=== PATIENT | female | born 1960 | race Caucasian/White ===

== ENCOUNTER 2022-07-19 15:37 | Inpatient (IN) | payer OTHER ==
[2022-07-19] MEDS ORDERED: METHYLPREDNISOLONE 125 MG INJ ONE (16:14)
[2022-07-19] MEDS ORDERED: HYDROCODONE/CHLORPHEN 5 ML/OSYR ONE (16:14)
[2022-07-19] MEDS ORDERED: FAMOTIDINE 20 MG/2 ML VIAL IV ONE (16:14)
[2022-07-19] MEDS ORDERED: Magnesium Sulfate 2gm IVPB 2 G/50 ML BAG IV ONE (16:15)
[2022-07-19 16:17] LABS: Absolute Lymphocytes (CBC) 1.1 K/uL (0.7-4.9); Hematocrit 42.3 % (36.0-45.0); Lymphocytes % 9.1 % (15.3-44.8); MCV 97.8 fL (80-100); MPV 8.2 fL (7.6-11.3); RBC Red Blood Cell Count 4.33 M/uL (3.86-4.86)
[2022-07-19 16:21] LABS: Protime INR 1.03
[2022-07-19] MEDS ORDERED: LEVALBUTEROL 1.25 MG/3 ML NEB ONE (16:26)
[2022-07-19 16:32] LABS: Albumin 4.1 g/dL (3.4-5.0); Bilirubin Total 0.5 mg/dL (0.2-1.0); Potassium 3.5 mEq/L (3.5-5.1); Protein, Total 7.5 g/dL (6.4-8.2)
[2022-07-19 16:41] LABS: Specific Gravity < 1.005 (1.005-1.030); Urine Bilirubin NEGATIVE (Negative); Urine Blood Negative (Negative); Urine Clarity Clear (Clear); Urine Color Colorless (Yellow); Urine Glucose NEGATIVE (Negative); Urine Protein NEGATIVE (Negative); Urine Urobilinogen Normal (Normal); Urine pH 6.5 (5.0-7.0)
[2022-07-19] MEDS ORDERED: Levofloxacin 750mg IV 750 MG/150 ML BAG IV ONE (16:41)
[2022-07-19] MEDS ORDERED: NA CHLORIDE 0.9% 1,000 ML ONE (16:41)
--- NOTE | 2022-07-19 16:41 | RAD REPORT ---
EXAM DESCRIPTION: RAD - Chest Single View - 07/19/2022 4:20 pm CLINICAL HISTORY: COUGH COMPARISON: No comparisons FINDINGS: Lines: None. Lungs: No evidence of edema or pneumonia. Pleural: No significant pleural effusions or pneumothorax. Cardiac: The heart size is within normal limits. Mediastinum: Within normal limits. Bones: No acute fractures. Other: None IMPRESSION: No acute cardiopulmonary disease.
--- NOTE | 2022-07-19 17:36 | EDPHYS ---
Physician Documentation [facility] Name: Denise Alejandra Age: 61 yrs Sex: Female : 1960 Arrival Date: 07/19/2022 Time: 15:37 Bed 15 Private MD: ED Physician Eyad Leal HPI: 07/19 16:00 This 61 yrs old Female presents to ER via EMS with complaints of Breathing Difficulty. cp 16:00 The patient has shortness of breath at rest. Onset: The symptoms/episode began/occurred cp 3 week(s) ago, and became worse today. Duration: The symptoms are continuous, and are steadily getting worse. Associated signs and symptoms: Pertinent positives: productive cough, dizziness, nausea, vomiting, Pertinent negatives: chest pain, diaphoresis, fever. Severity of symptoms: in the emergency department the symptoms are unchanged despite EMS interventions. Historical: - Allergies: 15:40 PENICILLINS; iw 15:40 Sulfa (Sulfonamide Antibiotics); iw - PMHx: 15:40 copd; iw - Immunization history:: Client reports receiving the 1st dose of the Covid vaccine. - Social history:: Smoking status: Patient denies any tobacco usage or history of. ROS: 16:05 Constitutional: Negative for body aches, chills, fever, poor PO intake. cp 16:05 Eyes: Negative for injury, pain, redness, and discharge. cp 16:05 ENT: Positive for sore throat, Negative for drainage from ear(s), ear pain, difficulty swallowing, difficulty handling secretions. 16:05 Cardiovascular: Negative for chest pain, edema, palpitations. 16:05 Respiratory: Positive for cough, "sounds productive", shortness of breath, at rest. wheezing. 16:05 Abdomen/GI: Positive for nausea, Negative for vomiting, diarrhea, constipation. 16:05 Neuro: Positive for dizziness, Negative for altered mental status, headache, syncope, weakness. 16:05 All other systems are negative. Exam: 16:10 Constitutional: The patient appears alert, awake, non-diaphoretic, non-toxic, well cp developed, well nourished, in obvious distress, mildly distressed. 16:10 Head/Face: Normocephalic, atraumatic. cp 16:10 Eyes: Periorbital structures: appear normal, Conjunctiva: normal, no exudate, no injection, Sclera: no appreciated abnormality, Lids and lashes: appear normal, bilaterally. 16:10 ENT: External ear(s): are unremarkable, Ear canal(s): are normal, clear, TM's: dullness, bilaterally, Nose: is normal, Mouth: Lips: moist, Oral mucosa: pink and intact, moist, Posterior pharynx: is normal, airway is patent, no erythema, no exudate. 16:10 Neck: ROM/movement: is normal, is supple, without pain, no range of motions limitations, no meningismus. 16:10 Chest/axilla: Inspection: normal. 16:10 Cardiovascular: Rate: tachycardic, Rhythm: regular, Edema: is not appreciated, JVD: is not appreciated. 16:10 Respiratory: mild respiratory distress is noted, Respirations: labored breathing, that is moderate, Breath sounds: decreased breath sounds, that are moderate, throughout, stridor, is not appreciated, wheezing: that is mild, is heard diffusely. 16:10 Abdomen/GI: Inspection: abdomen appears normal, Palpation: abdomen is soft and non-tender, in all quadrants. 16:10 Back: pain, is absent, ROM is normal. 16:10 Skin: no rash present. 16:10 Neuro: Orientation: to person, place \\T\\ time. Mentation: is normal, Cerebellar function: is grossly normal, Motor: moves all fours, strength is normal, Sensation: is normal. 16:52 ECG was reviewed by the Attending Physician. cp Vital Signs: 15:46 BP 142 / 90; Pulse 114; Resp 24; Pulse Ox 95% on 4 lpm NC; Weight 70.31 kg; ap3 17:23 BP 118 / 72; Pulse 85; Pulse Ox 97% on 4 lpm NC; ap3 20:02 BP 117 / 77; Pulse 72; Resp 20; Temp 98(TE); Pulse Ox 99% on 4 lpm NC; kl MDM: 15:51 Patient medically screened. snw 15:52 Patient medically screened. jose 17:35 Data reviewed: vital signs, nurses notes, lab test result(s), EKG, radiologic studies, cp plain films. 17:35 Differential diagnosis: CHF exacerbation, Chronic Obstructive Pulmonary Disease cp pneumonia, Pneumothorax pulmonary edema, Pulmonary Embolism Sepsis Unstable Angina. Antibiotic administration: Levaquin given. Consideration of Admission/Observation Patient was admitted/placed on observation. Management of patient was discussed with the following: Hospitalist: DR Castellon will have Gisela Farmer NP admit patient after discussion. I considered the following discharge prescriptions or medication management in the emergency department Medications were administered in the Emergency Department. See MAR. Test considered but Not performed: CT: chest PE protocol. Care significantly affected by the following chronic conditions: Chronic Obstructive Pulmonary Disease. 05 15:45 Order name: Blood Culture Adult (2) cp 05 15:45 Order name: CBC with Diff; Complete Time: 16:31 cp 05/ 16:31 Interpretation: Normal except: WBC 11.90; RDW 11.9; YADY% 86.9; LYM% 9.1; MN% 2.6; NEUT cp A 10.4. 05 15:45 Order name: CMP; Complete Time: 16:57 cp 05/ 16:57 Interpretation: Normal except: NA 133; GLUC 147; GFR 82; AST 39. cp 07/19 15:45 Order name: Lactate w/ 2H reflex if indic.; Complete Time: 16:31 cp 05 15:45 Order name: Protime (+inr); Complete Time: 16:31 cp 05/05 15:45 Order name: Ptt, Activated; Complete Time: 16:31 cp 05/05 15:45 Order name: Urinalysis w/ reflexes; Complete Time: 16:57 cp 05/05 16:57 Interpretation: Normal except: Urine SG < 1.005. cp 05 15:56 Order name: Influenza Screen (a \\T\\ B); Complete Time: 16:57 cp 0505 15:56 Order name: COVID-19 SARS RT PCR; Complete Time: 18:19 cp 05 16:59 Order name: D-Dimer; Complete Time: 18:19 cp 05 16:59 Order name: LAB Add On cp 05 17:30 Order name: ABG: may do vbg; Complete Time: 18:19 cp 05/05 20:09 Order name: Lactate Sepsis 2 HR Follow-up EDMS 05 15:45 Order name: Chest Single View XRAY; Complete Time: 16:57 cp 05/05 15:45 Order name: EKG; Complete Time: 15:46 cp 05/05 17:40 Order name: Diet Regular; Complete Time: 17:40 cp 0505 15:45 Order name: Accucheck; Complete Time: 15:48 cp 0505 15:45 Order name: Cardiac monitoring; Complete Time: 15:48 cp 0505 15:45 Order name: EKG - Nurse/Tech; Complete Time: 16:41 cp 0505 15:45 Order name: IV Saline Lock - Large Bore; Complete Time: 16:04 cp 0505 15:45 Order name: Labs collected and sent; Complete Time: 16:04 cp 0505 15:45 Order name: O2 Per Protocol; Complete Time: 15:48 cp 0505 15:45 Order name: O2 Sat Monitoring; Complete Time: 15:48 cp 0505 15:45 Order name: Vital Signs; Complete Time: 15:48 cp EC:52 Rate is 86 beats/min. Rhythm is regular. NM interval is normal. QRS interval is normal. cp QT interval is normal. Interpreted by me. Reviewed by me. Administered Medications: 16:03 CANCELLED (Physician Discretion): levofloxacin IVPB 750 mg 150 ml IVPB once over 90 minscp 16:04 CANCELLED (Physician Discretion): Lidocaine Infiltration (1 %) 5 mg Infiltration once; cp add to 5 ml normal saline 16:04 CANCELLED (Physician Discretion): Decadron - Dexamethasone IVP 10 mg IVP once cp 16:17 Drug: Tussionex Pennkinetic ER PO Suspension 5 ml Route: PO; ap3 17:18 Follow up: Response: No adverse reaction ap3 16:17 Drug: MethylPrednisoLONE IVP 125 mg Route: IVP; Site: right antecubital; ap3 17:18 Follow up: Response: No adverse reaction ap3 16:17 Drug: Magnesium Sulfate IVPB 2 grams Route: IVPB; Infused Over: 2 hrs; Site: right ap3 antecubital; 17:23 Follow up: IV Status: Completed infusion ap3 16:17 Drug: Famotidine IVP 20 mg Route: IVP; Site: right antecubital; ap3 17:19 Follow up: Response: No adverse reaction ap3 16:30 Drug: Levalbuterol Inhalation 1.25 mg Route: Inhalation; ap3 16:40 Drug: NS 0.9% IV 1000 ml Route: IV; Rate: 1000 ml/hr; Site: left antecubital; ap3 16:40 Drug: levofloxacin IVPB 750 mg Volume: 150 ml; Route: IVPB; Infused Over: 90 mins; ap3 Site: left antecubital; 19:38 Drug: Hydrocodone-Acetaminophen PO (7.5 mg-325 mg) 1 tabs Route: PO; kl 19:38 Drug: Ketorolac IVP 15 mg Route: IVP; Site: left antecubital; kl Disposition Summary: 07/19/22 17:35 Hospitalization Ordered Hospitalization Status: Inpatient Admission cp Condition: Fair cp Problem: an acute exacerbation cp Symptoms: have improved cp Bed/Room Type: Standard cp Location: Telemetry/MedSurg (observation)(07/19/22 18:19) cp Provider: Tasia Rosa(07/19/22 18:23) sb4 Room Assignment: [facility](07/19/22 19:10) Diagnosis - COPD/ Chronic obstructive pulmonary disease with acute lower respiratory infection cp - Dyspnea cp Forms: - Medication Reconciliation Form cp - SBAR form cp Signatures: Dispatcher [employer] EDBri Beckwith RN RN kl Webb, Martha, RN RN mw Anderson, Corey, MD MD cha Waters, Shelly, COMMODITIES CLERK-C COMMODITIES CLERK-Renay Portillo RN RN iw Page, Corey, PA PA cp Prokisch, Amanda, RN RN ap3 Brown, Sophia, PA-C PA-C sb4 Corrections: (The following items were deleted from the chart) 15:50 15:45 Misc. Order ordered. cp snw 16:03 15:53 levofloxacin IVPB 750 mg 150 ml IVPB once over 90 mins ordered. jose cp 16:04 15:45 Lidocaine Infiltration (1 %) 5 mg Infiltration once; add to 5 ml normal saline cp ordered. cp 16:04 15:53 Decadron - Dexamethasone IVP 10 mg IVP once ordered. jose cp 16:40 15:51 Misc. Order ordered. snw ap3 18:19 17:35 Telemetry/MedSurg (Inpatient) cp cp 18:19 17:35 cp cp 18:23 17:35 Leonidas Oliveros cp sb4 19:10 18:19 cp mw
--- NOTE | 2022-07-19 17:36 | ER ---
Nurse's Notes [facility] Name: Denise Alejandra Age: 61 yrs Sex: Female : 1960 Arrival Date: 07/19/2022 Time: 15:37 Bed 15 Private MD: Diagnosis: COPD/ Chronic obstructive pulmonary disease with acute lower respiratory infection;Dyspnea Presentation: 07/19 15:38 Chief complaint: EMS states: diff breathing X 3 weeks, cough X 1 week, saw her PCP and iw was given antibiotics for UTI and inhaler for SOB , pt has hx of COPD, uses home O2 , no fever , reports dizziness today. Coronavirus screen: Client presents with at least one sign or symptom that may indicate coronavirus-19. Ebola Screen: Patient negative for fever greater than or equal to 101.5 degrees Fahrenheit, and additional compatible Ebola Virus Disease symptoms Patient denies exposure to infectious person. Patient denies travel to an Ebola-affected area in the 21 days before illness onset. No symptoms or risks identified at this time. Initial Sepsis Screen: Does the patient meet any 2 criteria? No. Patient's initial sepsis screen is negative. Does the patient have a suspected source of infection? No. Patient's initial sepsis screen is negative. Risk Assessment: Do you want to hurt yourself or someone else? Patient reports no desire to harm self or others. Onset of symptoms was June 29, 2022. 15:38 Method Of Arrival: EMS: [facility] iw 15:38 Acuity: JONI 3 iw Triage Assessment: 15:47 General: Appears uncomfortable, Behavior is calm, cooperative, appropriate for age. ap3 Pain: Complains of pain in chest Aggravated by cough. Neuro: Level of Consciousness is awake, alert, obeys commands, Oriented to person, place, time, situation, Speech is normal. Respiratory: Onset: The symptoms/episode began/occurred gradually, the patient has moderate shortness of breath. Historical: - Allergies: 15:40 PENICILLINS; iw 15:40 Sulfa (Sulfonamide Antibiotics); iw - PMHx: 15:40 copd; iw - Immunization history:: Client reports receiving the 1st dose of the Covid vaccine. - Social history:: Smoking status: Patient denies any tobacco usage or history of. Screenin:48 [facility] ED Fall Risk Assessment (Adult) History of falling in the last 3 months, ap3 including since admission No falls in past 3 months (0 pts). Abuse screen: Denies threats or abuse. Nutritional screening: No deficits noted. Tuberculosis screening: No symptoms or risk factors identified. Assessment: 15:47 Cardiovascular: Patient's skin is warm and dry. Respiratory: Reports cough that is ap3 persistent Airway is patent Respiratory effort is even, unlabored. 19:59 Reassessment: Patient states symptoms have improved. General: Appears comfortable. kl Pain: Complains of pain in headache chest pain. Cardiovascular: Rhythm is sinus rhythm. Respiratory: Breath sounds are coarse Breath sounds are diminished bilaterally. the patient has moderate shortness of breath Parent/caregiver reports the patient having cough that is non-productive, hacking, persistent. GI: No deficits noted. No signs and/or symptoms were reported involving the gastrointestinal system. : No deficits noted. No signs and/or symptoms were reported regarding the genitourinary system. EENT: No deficits noted. No signs and/or symptoms were reported regarding the EENT system. Derm: No deficits noted. No signs and/or symptoms reported regarding the dermatologic system. Musculoskeletal: Parent/caregiver report the patient having chest head pain while coughing. Vital Signs: 15:46 BP 142 / 90; Pulse 114; Resp 24; Pulse Ox 95% on 4 lpm NC; Weight 70.31 kg; ap3 17:23 BP 118 / 72; Pulse 85; Pulse Ox 97% on 4 lpm NC; ap3 20:02 BP 117 / 77; Pulse 72; Resp 20; Temp 98(TE); Pulse Ox 99% on 4 lpm NC; ED Course: 15:38 Patient arrived in ED. iw 15:40 Triage completed. iw 15:40 Shanika Stewart, RN is Primary Nurse. ap3 15:40 Arm band placed on. iw 15:48 Patient has correct armband on for positive identification. Bed in low position. Call ap3 light in reach. Side rails up X2. property assessment monitor on. Pulse ox on. NIBP on. Door closed. Noise minimized. Warm blanket given. 15:52 Eyad Leal MD is Attending Physician. jose 15:55 First set of blood cultures drawn by nm. mb9 15:57 Eyad Serra PA is PHCP. cp 16:04 Inserted saline lock: 20 gauge in right antecubital area, using aseptic technique. ap3 16:04 Second set of blood cultures drawn by me. ap3 16:22 Chest Single View XRAY In Process Unspecified. EDMS 16:26 COVID-19 SARS RT PCR Sent. ap3 16:26 Influenza Screen (a \T\ B) Sent. ap3 16:31 Urinalysis w/ reflexes Sent. ap3 17:34 Leonidas Oliveros is Hospitalizing Provider. cp 17:34 LAB Add On Sent. ap3 18:23 Tasia Rosa MD is Hospitalizing Provider. sb4 20:01 No provider procedures requiring assistance completed. Patient admitted, IV remains in kl place. Administered Medications: 16:03 CANCELLED (Physician Discretion): levofloxacin IVPB 750 mg 150 ml IVPB once over 90 minscp 16:04 CANCELLED (Physician Discretion): Lidocaine Infiltration (1 %) 5 mg Infiltration once; cp add to 5 ml normal saline 16:04 CANCELLED (Physician Discretion): Decadron - Dexamethasone IVP 10 mg IVP once cp 16:17 Drug: Tussionex Pennkinetic ER PO Suspension 5 ml Route: PO; ap3 17:18 Follow up: Response: No adverse reaction ap3 16:17 Drug: MethylPrednisoLONE IVP 125 mg Route: IVP; Site: right antecubital; ap3 17:18 Follow up: Response: No adverse reaction ap3 16:17 Drug: Magnesium Sulfate IVPB 2 grams Route: IVPB; Infused Over: 2 hrs; Site: right ap3 antecubital; 17:23 Follow up: IV Status: Completed infusion ap3 16:17 Drug: Famotidine IVP 20 mg Route: IVP; Site: right antecubital; ap3 17:19 Follow up: Response: No adverse reaction ap3 16:30 Drug: Levalbuterol Inhalation 1.25 mg Route: Inhalation; ap3 16:40 Drug: NS 0.9% IV 1000 ml Route: IV; Rate: 1000 ml/hr; Site: left antecubital; ap3 16:40 Drug: levofloxacin IVPB 750 mg Volume: 150 ml; Route: IVPB; Infused Over: 90 mins; ap3 Site: left antecubital; 19:38 Drug: Hydrocodone-Acetaminophen PO (7.5 mg-325 mg) 1 tabs Route: PO; kl 19:38 Drug: Ketorolac IVP 15 mg Route: IVP; Site: left antecubital; Medication: 20:01 VIS not applicable for this client. kl Outcome: 17:35 Decision to Hospitalize by Provider. cp 20:01 Admitted to Med/surg accompanied by tech, room 201, with oxygen, with chart, Report kl called to cristina carrero 20:01 Condition: improved 20:01 Discharge instructions given to patient, Instructed on the need for admit, Demonstrated understanding of instructions. 21:04 Patient left the ED. kl Signatures: Dispatcher [employer] EDBri Beckwith, RN RN Eyad Shen MD MD cha Williams, Irene RN Eyad Maria PA PA cp Prokisch, Amanda RN RN Debora Perez PA-C PAAmbika Schmidt, Frida Garza RN RN mb9
[2022-07-19 17:58] LABS: Arterial Blood Carboxyhemoglob 0.9 % (0-1.5); Blood Gas Oxyhemoglobin 94.7 % (94-97); Blood O2 Saturation 96.8 % (92-98.5)
--- NOTE | 2022-07-19 19:10 | P.HP ---
Certification for Inpatient Patient admitted to: Observation With expected LOS: <2 Midnights Patient will require the following post-hospital care: None Practitioner: I am a practitioner with admitting privileges, knowledge of patient current condition, hospital course, and medical plan of care. Services: Services provided to patient in accordance with Admission requirements found in Title 42 Section 412.3 of the Code of Federal Regulations Patient History Date of Service: 07/19/22 Reason for admission: COPD Exacerbation History of Present Illness: Ms. Alejandra is a 61 year old female with past medical history of COPD on home O2 who presented to the emergency department with complaints of shortness of breath. She states that she has had some difficulty breathing, especially on exertion, for about 3 weeks now, has had to increase her O2 to 4L (typically uses 3L). She developed a cough last week. She was prescribed an antibiotic and inhaler by her PCP but has not improved. She was tachycardic and tachypneic. Labs are significant for WBC 11.9, sodium 133, lactate 2.7. VBG within normal limits. Chest xray negative. In the emergency department, she was treated with solumedrol, 2 grams magnesium, nebs, levaquin, and IV fluids. ED provider wishes to admit patient for further management. Home medications list reviewed: Yes - Past Medical/Surgical History Diabetic: No -: COPD on home O2 -: Depression -: Anxiety -: -: Hysterectomy Psychosocial/ Personal History: Patient is . She has a son. - Family History Sister -: Heart disease Father -: Lung disease - Social History Smoking Status: Former smoker Alcohol use: Yes CD- Drugs: No Caffeine use: Yes Place of Residence: Home Review of Systems General: Weakness Respiratory: Cough, Shortness of Breath, Wheezing Neurological: Other (Headache) Physical Examination - Vital Signs Temperature: 98.6 F Blood Pressure: 118/72 Pulse: 85 Respirations: 20 Pulse Ox (%): 97 (4L NC) - Physical Exam General: Alert, In no apparent distress HEENT: Atraumatic, EOMI, Sclerae nonicteric Neck: Supple, 2+ carotid pulse no bruit Respiratory: Expiratory wheezes Cardiovascular: Regular rate/rhythm, Normal S1 S2 Gastrointestinal: Normal bowel sounds, No tenderness Musculoskeletal: No tenderness Integumentary: No rashes Neurological: Normal speech, Normal affect - Studies Laboratory Data (last 24 hrs) 07/19/22 16:00: PT 11.3, INR 1.03, APTT 28.3 07/19/22 16:00: Sodium 133 L, Potassium 3.5, BUN 9, Creatinine 0.81, Glucose 147 H, Total Bilirubin 0.5, AST 39 H, ALT 49, Alkaline Phosphatase 93 07/19/22 16:00: WBC 11.90 H, Hgb 14.3, Hct 42.3, Plt Count 223 Microbiology Data (last 24 hrs): 07/19/22 16:24 Nasopharnyx Influenza Type A Antigen Screen - Final 07/19/22 16:24 Nasopharnyx Influenza Type B Antigen Screen - Final Assessment and Plan - Problems (Diagnosis) (1) COPD with acute exacerbation Current Visit: Yes Status: Acute (2) Acute and chronic respiratory failure with hypoxia Current Visit: Yes Status: Acute - Plan Patient is admitted for further management of acute on chronic hypoxic respiratory failure secondary to COPD exacerbation. Continue IV steroids, PRN nebs, incentive spirometry. Pulmonology consulted. Blood cultures obtained. She received levaquin in the ED. Titrate and wean O2 as tolerated. Currently on 4L, states her baseline is 3L. Monitor and replete electrolytes per protocol. Reconcile and continue home medications. Lovenox for VTE prophylaxis. Full code. Discharge Plan: Home Plan to discharge in: 24 Hours - Advance Directives Does patient have a Living Will: No Does patient have a Durable POA for Healthcare: No - Code Status/Comfort Care Code Status Assessed: Yes Code Status: Full Code Physician Review: Patient Assessed, Agree with Above Assessment and Plan Critical Care: No Time Spent Managing Pts Care (In Minutes): 50
[2022-07-19] MEDS ORDERED: KETOROLAC 30 MG/ML INJ ONE (19:41)
[2022-07-19] MEDS ORDERED: HYDROCODONE/APAP 7.5/325 MG TAB ONE (19:41)
[2022-07-19 21:06] VITALS: BMI 23.9
[2022-07-19] MEDS ORDERED: ONDANSETRON 4 MG/2 ML VIAL IV PRN (21:17)
[2022-07-19] MEDS ORDERED: IPRATROPIUM BROM 0.5MG/2.5ML NEB PRN (21:17)
[2022-07-19] MEDS ORDERED: ACETAMINOPHEN 500 MG TAB PO PRN (21:17)
[2022-07-19] MEDS ORDERED: ALBUTEROL 2.5 MG/3 ML NEB SOL NEB PRN (21:17)
[2022-07-20] MEDS: clonazePAM 1 MG TAB PO PRN ×2 (00:59→20:41)
[2022-07-20] MEDS: METHYLPREDNISOLONE 40 MG INJ IV SCH ×3 (00:59→16:38)
[2022-07-20 06:36] LABS: Hematocrit 41.2 % (36.0-45.0); Lymphocytes % 10.8 % (15.3-44.8); MCV 99.2 fL (80-100); MPV 8.3 fL (7.6-11.3); RBC Red Blood Cell Count 4.16 M/uL (3.86-4.86)
--- NOTE | 2022-07-20 07:10 | EKG ---
Test Date: 2022-07-19 Test Time: 16:45:12 Patient Appointment Coordinator: WODOROW MEASUREMENT RESULTS: Intervals: Rate: 83 AL: 134 QRSD: 74 QT: 410 QTc: 481 Badger: P: 74 AL: 134 QRS: 77 T: 63 INTERPRETIVE STATEMENTS: Sinus rhythm with fusion complexes ST elevation, consider inferolateral injury or acute infarct ACUTE VT Abnormal ECG No previous ECG available for comparison Electronically Signed On 07-20-22 07:09:25 CDT by Cliff Singh
[2022-07-20 07:20] LABS: Magnesium 2.8 mg/dL (1.6-2.4); Phosphorus 3.2 mg/dL (2.5-4.9); Potassium 4.4 mEq/L (3.5-5.1); Thyroid Stimulating Hormone 0.225 uIU/mL (0.358-3.740)
[2022-07-20 08:15] LABS: Blood Morphology Comment NOT SEEN (NOT SEEN); Platelet Estimate ADEQ; Platelets, Giant FEW PRESENT
[2022-07-20] MEDS: ENOXAPARIN 40 MG/0.4 ML SQ SCH (08:21)
[2022-07-20] MEDS: FLUOXETINE 20 MG CAP PO SCH (08:21)
--- NOTE | 2022-07-20 09:24 | P.CNS ---
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 She has a son. - Family History Sister Medical History: Heart disease Father Medical History: Lung disease - Social History Alcohol use: Yes CD- Drugs: No Caffeine use: Yes Place of Residence: Home Review of Systems 10-point ROS is otherwise unremarkable General: Weakness Respiratory: Cough, Shortness of Breath Physical Examination Temp Pulse Resp BP Pulse Ox 97.5 F 81 18 120/87 98 07/20/22 08:00 07/20/22 08:00 07/20/22 08:00 07/20/22 08:00 07/20/22 08:00 General: Alert, Moderate distress HEENT: Atraumatic Neck: Supple Respiratory: Clear to auscultation bilaterally, Diminished Cardiovascular: No edema, Regular rate/rhythm, Normal S1 S2 Gastrointestinal: Normal bowel sounds, Soft and benign, No tenderness Laboratory Data (last 24 hrs) 07/19/22 16:00: PT 11.3, INR 1.03, APTT 28.3 07/19/22 16:00: Sodium 133 L, Potassium 3.5, BUN 9, Creatinine 0.81, Glucose 147 H, Total Bilirubin 0.5, AST 39 H, ALT 49, Alkaline Phosphatase 93 07/19/22 16:00: WBC 11.90 H, Hgb 14.3, Hct 42.3, Plt Count 223 - Problems (1) COPD with acute exacerbation Current Visit: Yes Status: Acute Plan: Patient is 61 years of age admitted with COPD exacerbation smoking 4 months ago has home O2 uses only albuterol at home cannot afford Sam chest x-ray shows COPD changes chemistries reviewed white count is now normal continue with steroids blood gases satisfactory labs reviewed
[2022-07-20] MEDS: levoFLOXacin 750 MG TAB PO SCH (10:03)
[2022-07-20] MEDS: DULERA 200/5 (MOMETASONE/FORMOTEROL) INHALER IH SCH ×2 (10:37→20:40)
[2022-07-20] MEDS: ALBUTEROL 2.5 MG/3 ML NEB SOL NEB SCH ×3 (11:49→19:20)
[2022-07-20] MEDS: PROMETHAZINE-DM 5 ML OSYR PO PRN (14:23)
[2022-07-20] MEDS ORDERED: ACETAMINOPHEN 500 MG TAB PO ONE (14:45)
[2022-07-21] MEDS: ALBUTEROL 2.5 MG/3 ML NEB SOL NEB SCH ×4 (01:35→19:15)
[2022-07-21] MEDS: METHYLPREDNISOLONE 40 MG INJ IV SCH ×2 (01:37→08:14)
--- NOTE | 2022-07-21 07:56 | RAD REPORT ---
EXAM DESCRIPTION: Jose Single View07/21/2022 6:51 am CLINICAL HISTORY: Shortness breath COMPARISON: Jul 19 1022 FINDINGS: The lungs are moderately hyperaerated. The lungs appear clear of acute infiltrate. The heart is normal size IMPRESSION: No acute abnormalities displayed
[2022-07-21] MEDS: PROMETHAZINE-DM 5 ML OSYR PO PRN ×3 (08:14→20:57)
[2022-07-21] MEDS: levoFLOXacin 750 MG TAB PO SCH (08:15)
[2022-07-21] MEDS: DULERA 200/5 (MOMETASONE/FORMOTEROL) INHALER IH SCH ×2 (08:15→20:55)
[2022-07-21] MEDS: FLUOXETINE 20 MG CAP PO SCH (08:15)
[2022-07-21] MEDS: ENOXAPARIN 40 MG/0.4 ML SQ SCH (08:15)
[2022-07-21] MEDS: ACETAMINOPHEN 500 MG TAB PO PRN (08:25)
[2022-07-21] MEDS ORDERED: predniSONE 20 MG TAB PO SCH (09:00)
--- NOTE | 2022-07-21 10:15 | P.PN ---
Subjective Date of Service: 07/21/22 Chief Complaint: COPD Exacerbation Change patient is still complaining of coughing spells shortness of breath Review of Systems General: Weakness Respiratory: Cough, Shortness of Breath Physical Examination - Vital Signs Temperature: 97.2 F Blood Pressure: 117/62 Pulse: 88 Respirations: 23 Pulse Ox (%): 97 - Physical Exam General: Alert, Oriented x3 Respiratory: Diminished, Expiratory wheezes Cardiovascular: No edema, Regular rate/rhythm, Normal S1 S2 Assessment And Plan - Current Problems (Diagnosis) (1) COPD with acute exacerbation Current Visit: Yes Status: Acute Plan: Patient admitted with COPD exacerbation repeat chest x-ray still clear and is to p.o. prednisone equivalent to IV Solu-Medrol continue with levofloxacin scheduled albuterol/ipratropium no new labs ordered vital signs oxygenation satisfactory Physician Review: Patient Assessed, Agree with Above Assessment and Plan
[2022-07-21] MEDS ORDERED: PROMETHAZINE-DM 5 ML OSYR PO PRN (10:16)
[2022-07-21] MEDS: ROFLUMILAST 500 MCG TABLET PO SCH (10:54)
[2022-07-21] MEDS ORDERED: IPRATROPIUM BROM 0.5MG/2.5ML NEB SCH (14:00)
[2022-07-21] MEDS: ACETAMIN/CAFFEINE/BUTALB TAB PO PRN ×2 (14:59→21:53)
[2022-07-21] MEDS: predniSONE 20 MG TAB PO SCH (20:56)
[2022-07-22] MEDS: ALBUTEROL 2.5 MG/3 ML NEB SOL NEB SCH ×2 (01:05→07:57)
[2022-07-22 06:30] LABS: Albumin 3.4 g/dL (3.4-5.0); Bilirubin Total 0.3 mg/dL (0.2-1.0); Potassium 3.7 mEq/L (3.5-5.1); Protein, Total 6.2 g/dL (6.4-8.2)
[2022-07-22] MEDS ORDERED: POTASSIUM 25 MEQ EFFERV TAB PO ONE (08:00)
[2022-07-22] MEDS: ENOXAPARIN 40 MG/0.4 ML SQ SCH (08:24)
[2022-07-22] MEDS: PROMETHAZINE-DM 5 ML OSYR PO PRN ×2 (08:24→20:42)
[2022-07-22] MEDS: FLUOXETINE 20 MG CAP PO SCH (08:24)
[2022-07-22] MEDS: levoFLOXacin 750 MG TAB PO SCH (08:24)
[2022-07-22] MEDS: ROFLUMILAST 500 MCG TABLET PO SCH (08:25)
[2022-07-22] MEDS: predniSONE 20 MG TAB PO SCH ×2 (08:25→20:43)
[2022-07-22] MEDS: DULERA 200/5 (MOMETASONE/FORMOTEROL) INHALER IH SCH ×2 (08:26→20:42)
[2022-07-22] MEDS: TIOTROPIUM 5 SPRAYS/INHALER IH SCH (09:00)
--- NOTE | 2022-07-22 10:15 | P.PN ---
Subjective Date of Service: 07/22/22 Chief Complaint: COPD Exacerbation No acute events overnight. She reports that her shortness of breath is unchanged compared to yesterday. She continues to have cough and wheezing. She denies chest pain or palpitations. Review of Systems 10-point ROS is otherwise unremarkable Respiratory: Cough, Shortness of Breath, Wheezing Physical Examination - Vital Signs Temperature: 98.0 F Blood Pressure: 115/76 Pulse: 67 Respirations: 19 Pulse Ox (%): 95 - Physical Exam General: Alert, In no apparent distress, Oriented x3 HEENT: Atraumatic, Mucous membr. moist/pink, Sclerae nonicteric Neck: JVD not distended Respiratory: Diminished, Crackles/rales, Expiratory wheezes, Inspiratory wheezes Cardiovascular: No edema, Regular rate/rhythm, Normal S1 S2, No gallops, No rubs, No murmurs Gastrointestinal: Normal bowel sounds, Soft and benign, Non-distended, No tenderness, No rebound, No guarding Musculoskeletal: No clubbing Integumentary: No rashes Neurological: Normal speech, Normal affect Assessment And Plan - Plan # Acute Chronic Obstructive Pulmonary Disease Exacerbation # Suspect Type B Lactic Acidosis secondary to Bronchodilator Use # SIRS Criteria (Tachypnea, Tachycardia) likely due to COPD Exacerbation - no evidence of infection # Chronic Respiratory Failure due to COPD on Home Oxygen - Evaluation thus far: - Physical exam = wheezing throughout - Chest x-ray (07/19) = "no acute cardiopulmonary disease." - Chest x-ray (07/21) = "no acute abnormalities displayed" - Plan: - Pulmonology consulted and spoke with Dr. Vázquez - recommendations appre ciated - Bronchodilators and steroids per Pulm - Continue empiric levofloxacin - Continue roflumilast - Consulted Respiratory Therapy - Supplemental oxygen to maintain SpO2 > 92% - Assess inhaler technique one improved from COPD exacerbation - Encouraged incentive spirometry # Depression with Anxiety - Continue home fluoxetine and PRN clonazepam # Hyperlipidemia - Started atorvastatin # Subclinical Hyperthyroidism - TSH 0.225, Free T4 0.80 - Advised to follow-up with PCP for further evaluation Barron Castellon M.D.
[2022-07-22] MEDS ORDERED: ALBUTEROL 2.5 MG/3 ML NEB SOL NEB PRN (11:48)
--- NOTE | 2022-07-22 11:49 | P.PN ---
Subjective Date of Service: 07/22/22 Chief Complaint: COPD Exacerbation Patient is only slightly better complaining of tremors suspect is from albuterol use becoming dizzy with coughing spell Review of Systems General: Weakness Respiratory: Cough, Shortness of Breath Physical Examination - Vital Signs Temperature: 98.0 F Blood Pressure: 115/76 Pulse: 67 Respirations: 19 Pulse Ox (%): 95 - Physical Exam General: Alert, Mild distress Respiratory: Diminished, Expiratory wheezes Cardiovascular: No edema, Regular rate/rhythm, Normal S1 S2 Assessment And Plan - Current Problems (Diagnosis) (1) COPD with acute exacerbation Current Visit: Yes Status: Acute Plan: Patient admitted with COPD exacerbation continue with present treatment complaining of tremors reduce the use of albuterol nebulizer add ipratropium if available cultures so far negative oxygenation satisfactory Physician Review: Patient Assessed, Agree with Above Assessment and Plan
[2022-07-22] MEDS: ALBUTEROL 2.5 MG/3 ML NEB SOL NEB PRN (19:40)
[2022-07-22] MEDS: ATORVASTATIN 20 MG TAB PO SCH (20:43)
[2022-07-22] MEDS: ENSURE ENLIVE 237 ML CAN PO SCH (20:44)
[2022-07-22] MEDS ORDERED: ACETAMIN/CAFFEINE/BUTALB TAB PO ONE (21:18)
[2022-07-22] MEDS: ACETAMIN/CAFFEINE/BUTALB TAB PO PRN (21:34)
[2022-07-23] MEDS: ALBUTEROL 2.5 MG/3 ML NEB SOL NEB PRN ×4 (01:50→20:03)
--- NOTE | 2022-07-23 08:02 | EKG ---
Test Date: 2022-07-19 Test Time: 16:46:32 Lodging Facilities Attendant: WOODROW MEASUREMENT RESULTS: Intervals: Rate: 86 MD: 136 QRSD: 74 QT: 416 QTc: 497 [place]: P: 79 MD: 136 QRS: 82 T: 117 INTERPRETIVE STATEMENTS: Normal sinus rhythm with sinus arrhythmia Nonspecific ST abnormality Prolonged QT Abnormal ECG Compared to ECG 07/19/2022 16:45:12 Prolonged QT interval now present Fusion complex(es) no longer present Myocardial infarct finding no longer present Myocardial infarct finding no longer present ST (T wave) deviation still present Electronically Signed On 07-23-22 07:54:19 CDT by Cliff Singh
[2022-07-23] MEDS: HYDROCODONE/CHLORPHEN 5 ML/OSYR PO PRN ×2 (08:17→20:32)
[2022-07-23] MEDS: DULERA 200/5 (MOMETASONE/FORMOTEROL) INHALER IH SCH ×2 (08:17→20:31)
[2022-07-23] MEDS: TIOTROPIUM 5 SPRAYS/INHALER IH SCH (08:18)
[2022-07-23] MEDS: predniSONE 20 MG TAB PO SCH ×2 (08:20→20:31)
[2022-07-23] MEDS: ENOXAPARIN 40 MG/0.4 ML SQ SCH (08:20)
[2022-07-23] MEDS: levoFLOXacin 750 MG TAB PO SCH (08:20)
[2022-07-23] MEDS: ROFLUMILAST 500 MCG TABLET PO SCH (08:20)
[2022-07-23] MEDS: FLUOXETINE 20 MG CAP PO SCH (08:20)
[2022-07-23] MEDS: ENSURE ENLIVE 237 ML CAN PO SCH ×2 (08:20→20:59)
--- NOTE | 2022-07-23 13:26 | RAD REPORT ---
EXAM DESCRIPTION: CT - Head Brain Wo Cont - 07/23/2022 1:17 pm CLINICAL HISTORY: Fall with headache COMPARISON: none TECHNIQUE: Computed axial tomography of the head was obtained. IV contrast was not requested. All CT scans are performed using dose optimization technique as appropriate and may include automated exposure control or mA/KV adjustment according to patient size. FINDINGS: An intracranial bleed is not seen The ventricles are normal in caliber No significant hypodense areas within the brain visualized No extra-axial fluid collection is noted. Fluid within the sinuses/ mastoids is not seen IMPRESSION: No acute intracranial abnormality is seen If patient's symptoms persist MRI of the brain would be recommended
--- NOTE | 2022-07-23 15:58 | P.PN ---
Subjective Date of Service: 07/23/22 Chief Complaint: COPD Exacerbation No acute events overnight. She reports that her cough is persistent, and now has become more productive of phlegm. Her shortness of breath is unchanged compared to yesterday. She requests a stronger cough medication. She denies chest pain or palpitations. Review of Systems 10-point ROS is otherwise unremarkable Respiratory: Cough, Shortness of Breath, Wheezing Physical Examination - Vital Signs Temperature: 97.7 F Blood Pressure: 102/61 Pulse: 80 Respirations: 18 Pulse Ox (%): 94 - Physical Exam General: Alert, Oriented x3, Mild distress HEENT: Atraumatic, Sclerae nonicteric Neck: JVD not distended Respiratory: Diminished, Expiratory wheezes, Rhonchi/gurgles Cardiovascular: No edema, Regular rate/rhythm, Normal S1 S2, No gallops, No rubs, No murmurs Gastrointestinal: Normal bowel sounds, Soft and benign, Non-distended, No tenderness, No rebound, No guarding Musculoskeletal: No clubbing Integumentary: No rashes Neurological: Normal speech, Normal affect Assessment And Plan - Plan # Acute Chronic Obstructive Pulmonary Disease Exacerbation # Suspect Type B Lactic Acidosis secondary to Bronchodilator Use # SIRS Criteria (Tachypnea, Tachycardia) likely due to COPD Exacerbation - no evidence of infection # Chronic Respiratory Failure due to COPD on Home Oxygen - Evaluation thus far: - Physical exam = wheezing throughout - Chest x-ray (07/19) = "no acute cardiopulmonary disease." - Chest x-ray (07/21) = "no acute abnormalities displayed" - Chest x-ray (07/23) = pending - Plan: - She does not appear to be improving from a respiratory standpoint - Has frequent coughing fits, where she is unable to catch her breath - Pulmonology consulted and spoke with Dr. Vázquez - recommendations appreciated - Bronchodilators and steroids per Pulm - Continue roflumilast - Continue PRN guaifenesin, bezonatate - Added PRN Tussionex - Consulted Respiratory Therapy - Supplemental oxygen to maintain SpO2 > 92% - Assess inhaler technique one improved from COPD exacerbation - Encouraged incentive spirometry # Depression with Anxiety - Continue home fluoxetine and PRN clonazepam # Hyperlipidemia - Started atorvastatin # Subclinical Hyperthyroidism - TSH 0.225, Free T4 0.80 - Advised to follow-up with PCP for further evaluation Barron Castellon M.D.
[2022-07-23] MEDS: ACETAMINOPHEN 500 MG TAB PO PRN (16:04)
--- NOTE | 2022-07-23 17:09 | RAD REPORT ---
EXAM DESCRIPTION: Jose Single View07/23/2022 4:57 pm CLINICAL HISTORY: Shortness of breath COMPARISON: July 21, 2022 FINDINGS: The lungs are mildly hyperaerated. The lungs appear clear of acute infiltrate. The heart is normal size IMPRESSION: No acute abnormalities displayed
[2022-07-23] MEDS: ATORVASTATIN 20 MG TAB PO SCH (20:31)
[2022-07-23] MEDS ORDERED: ACETAMIN/CAFFEINE/BUTALB TAB PO ONE (22:26)
[2022-07-23] MEDS: PROMETHAZINE-DM 5 ML OSYR PO PRN (23:22)
[2022-07-23] MEDS: clonazePAM 1 MG TAB PO PRN (23:22)
[2022-07-23] MEDS: ACETAMIN/CAFFEINE/BUTALB TAB PO PRN (23:23)
[2022-07-24 04:57] VITALS: O2SAT 97
[2022-07-24] MEDS ORDERED: POTASSIUM CL SA 10 MEQ TAB PO ONE (07:20)
[2022-07-24] MEDS: predniSONE 20 MG TAB PO SCH (08:06)
[2022-07-24] MEDS: FLUOXETINE 20 MG CAP PO SCH (08:06)
[2022-07-24] MEDS: ENOXAPARIN 40 MG/0.4 ML SQ SCH (08:06)
[2022-07-24] MEDS: ROFLUMILAST 500 MCG TABLET PO SCH (08:06)
[2022-07-24] MEDS: DULERA 200/5 (MOMETASONE/FORMOTEROL) INHALER IH SCH (08:07)
[2022-07-24] MEDS: HYDROCODONE/CHLORPHEN 5 ML/OSYR PO PRN (08:07)
[2022-07-24] MEDS: TIOTROPIUM 5 SPRAYS/INHALER IH SCH (08:08)
[2022-07-24] MEDS: ENSURE ENLIVE 237 ML CAN PO SCH (08:12)
[2022-07-24] MEDS ORDERED: AZITHROMYCIN 250 MG TAB PO ONE (09:30)
[2022-07-24] MEDS: PROMETHAZINE-DM 5 ML OSYR PO PRN (11:26)
--- NOTE | 2022-07-24 11:50 | P.PN ---
Subjective Date of Service: 07/24/22 Chief Complaint: COPD Exacerbation Patient still complaining of coughing spells although did sleep last night clear sputum Review of Systems General: Weakness Respiratory: Cough, Shortness of Breath Physical Examination - Vital Signs Temperature: 97.8 F Blood Pressure: 102/56 Pulse: 63 Respirations: 16 Pulse Ox (%): 98 - Physical Exam General: Alert, Oriented x3, Mild distress Respiratory: Expiratory wheezes Cardiovascular: No edema, Regular rate/rhythm, Normal S1 S2 Assessment And Plan - Current Problems (Diagnosis) (1) COPD with acute exacerbation Current Visit: Yes Status: Acute Plan: Admitted with COPD exacerbation has improved slightly recommend changing to Zithromax for anti-inflammatory purposes vital signs stable scheduled cough medication reduce prednisone to 10 mg twice a day add pantoprazole for the possibility of reflux induced cough related possible discharge a.m. on low-dose prednisone and to sheepskin pickler a sample of a trilogy inhaler from my office gradual doses of antitussives and Zithromax Physician Review: Patient Assessed, Agree with Above Assessment and Plan
[2022-07-24] MEDS: ALBUTEROL 2.5 MG/3 ML NEB SOL NEB PRN (14:08)
--- NOTE | 2022-07-24 15:03 | P.DS ---
Admission Date: 07/19/22 Discharge Date: 07/24/22 Discharge Condition: FAIR Reason for Admission: COPD Exacerbation Consultations: 1. Pulmonology Hospital Course: DIAGNOSES: # Acute Chronic Obstructive Pulmonary Disease Exacerbation # Suspect Type B Lactic Acidosis secondary to Bronchodilator Use # SIRS Criteria (Tachypnea, Tachycardia) likely due to COPD Exacerbation - no evidence of infection # Chronic Respiratory Failure due to COPD on Home Oxygen # Depression with Anxiety # Hyperlipidemia # Subclinical Hyperthyroidism HOSPITAL COURSE: Ms. Denise Alejandra is a pleasant 61-year-old female with a past medical history significant for chronic respiratory failure secondary to COPD on 3 L home oxygen, depression, anxiety, and hyperlipidemia who was admitted to the [facility] on 07/19/2022 for shortness of breath. She was admitted to the Medicine service. Upon further evaluation, she was found to have an acute COPD exacerbation. Her chest x-ray was notable for, "no acute cardiopulmonary disease." She was treated with bronchodilators and steroids and, over the course of her hospitalization, her symptoms improved significantly. Pulmonology was consulted and she was evaluated by Dr. Vázquez. Throughout her hospitalization, she continued to experience significant coughing fits. Her antitussive regimen was increased to include benzonatate, guaifenesin, Tussionex, and azithromycin. Today, her symptoms improved significantly and her cough was well-controlled. From a pulmonology standpoint, Dr. Vázquez has cleared her for discharge with outpatient follow-up. She was found to have dyslipidemia and was started on atorvastatin. She was advised to follow-up with her PCP for repeat LFTs and lipid panel in about a month. On 07/24/2022, she was seen on rounds and deemed medically stable for discharge. She was discharged with instructions to schedule follow-up appointments with her PCP (Dr. Zimmerman) and with Pulmonology (Dr. Vázquez). She was provided prescriptions for benzonatate, Tussionex, azithromycin, prednisone, and atorvastatin. She was given the opportunity to ask questions and reported no further questions. Furthermore, all questions were answered to the best of my ability. Prior to the controlled substance prescription, a PDMP review was conducted. Over the last 2 years, she has received 0 prescriptions from 0 providers to 0 pharmacies. Her opioid overdose risk score is 0. A copy of this discharge summary will be sent to the above providers to facilitate continuity of care. Today, I personally spent 25 minutes on her case, of which greater than 50% of the time was spent in patient education, counseling, and coordination of care as described above. - Physical Exam General: Alert, Oriented x3, No distress HEENT: Atraumatic, Sclerae nonicteric Neck: JVD not distended Respiratory: Clear to auscultation without wheezes, rhonchi, or rales Cardiovascular: No edema, Regular rate/rhythm, No murmurs Gastrointestinal: Normal bowel sounds, Soft, Non-distended, No tenderness Musculoskeletal: No clubbing Integumentary: No rashes Neurological: Normal speech, Normal affect Vital Signs/Physical Exam: Temp Pulse Resp BP Pulse Ox 98.1 F 77 16 99/52 L 95 07/24/22 12:00 07/24/22 12:00 07/24/22 12:00 07/24/22 12:00 07/24/22 12:00 Laboratory Data at Discharge: WBC 8.90 thou/uL (4.3-10.9) 07/20/22 06:05 Hgb 13.7 g/dL (12.0-15.0) 07/20/22 06:05 Hct 41.2 % (36.0-45.0) 07/20/22 06:05 Plt Count 209 thou/uL (152-406) 07/20/22 06:05 PT 11.3 SECONDS (9.5-12.5) 07/19/22 16:00 INR 1.03 07/19/22 16:00 APTT 28.3 SECONDS (24.3-36.9) 07/19/22 16:00 Sodium 139 mEq/L (136-145) 07/22/22 05:44 Potassium 3.7 mEq/L (3.5-5.1) 07/22/22 05:44 BUN 12 mg/dL (7-18) 07/22/22 05:44 Creatinine 0.73 mg/dL (0.55-1.02) 07/22/22 05:44 Glucose 125 mg/dL (74-106) H 07/22/22 05:44 Phosphorus 3.2 mg/dL (2.5-4.9) 07/20/22 06:05 Magnesium 2.8 mg/dL (1.6-2.4) H 07/20/22 06:05 Total Bilirubin 0.3 mg/dL (0.2-1.0) 07/22/22 05:44 AST 26 U/L (15-37) 07/22/22 05:44 ALT 42 U/L (13-56) 07/22/22 05:44 Alkaline Phosphatase 68 U/L (45-117) 07/22/22 05:44 Triglycerides 64 mg/dL (<150) 07/20/22 06:05 Cholesterol 209 mg/dL (<200) H 07/20/22 06:05 HDL Cholesterol 53 mg/dL (40-60) 07/20/22 06:05 Cholesterol/HDL Ratio 3.94 07/20/22 06:05 Home Medications: D-Methorphan Hb/Prometh HCl [Promethazine-Dm Syrup] 5 ml PO Q6HR PRN 07/19/22 Fluoxetine HCl [Prozac] 40 mg PO DAILY 07/19/22 clonazePAM [Clonazepam] 1 mg PO TID 07/19/22 Atorvastatin Calcium [Lipitor*] 20 mg PO BEDTIME #30 tab 07/24/22 Azithromycin Tab [Zithromax*] 250 mg PO DAILY 4 Days #4 tab 07/24/22 Benzonatate 100 mg PO Q8H PRN 10 Days #30 tab 07/24/22 Hydrocodone/Chlorphen Polis [Tussionex Oral Susp*] 5 ml PO BID PRN 10 Days #100 ml 07/24/22 Pantoprazole [Protonix Tab*] 40 mg PO BIDAC tab 07/24/22 Roflumilast [Daliresp*] 500 mcg PO DAILY 07/24/22 Tiotropium [Spiriva Handihaler*] 1 sprays IH DAILY inhaler 07/24/22 predniSONE [Prednisone] 10 mg PO BID 5 Days #20 tab 07/24/22 New Medications: Benzonatate 100 mg PO Q8H PRN 10 Days #30 tab PRN Reason: Cough Atorvastatin Calcium [Lipitor*] 20 mg PO BEDTIME #30 tab predniSONE [Prednisone] 10 mg PO BID 5 Days #20 tab Hydrocodone/Chlorphen Polis [Tussionex Oral Susp*] 5 ml PO BID PRN 10 Days #100 ml PRN Reason: Cough Azithromycin Tab [Zithromax*] 250 mg PO DAILY 4 Days #4 tab Physician Discharge Instructions: 1. Please call and schedule a follow-up appointment with your PCP (Dr. Zimmerman) in 3-5 days - Your cholesterol levels were high and you were started on a cholesterol medication (atorvastatin). Please have your liver and cholesterol levels checked in about 4 weeks. Please have your medication refilled/adjusted by your PCP - Your thyroid blood work was slightly abnormal. Please have your levels rechecked by your PCP. 2. Please call and schedule a follow-up appointment with Pulmonology (Dr. Vázquez) in 3-[address] Vázquez: Patient to hot die picker a sample of Trelegy 200 from my office Diet: AHA Activity: Ad venancio Followup: Hector Vázquez MD [ACTIVE - CAN ADMIT] - Time spent managing pt's care (in minutes): 25
[2022-07-24] MEDS ORDERED: PANTOPRAZOLE 40MG TABLET PO SCH (16:30)
[2022-07-24 17:01] VITALS: BP 107/60; TEMP 98.2
[2022-07-24] MEDS ORDERED: HYDROCODONE/CHLORPHEN 5 ML/OSYR PO SCH (21:00)
[2022-07-24] MEDS ORDERED: predniSONE 10 MG TAB PO SCH (21:00)
[2022-07-25] MEDS ORDERED: AZITHROMYCIN 250 MG TAB PO SCH (09:00)
--- NOTE | 2022-07-30 07:52 | EKG ---
Test Date: 2022-07-24 Test Time: 08:28:19 Nuclear Physicist: TIMO MEASUREMENT RESULTS: Intervals: Rate: 70 AK: 120 QRSD: 70 QT: 396 QTc: 427 [place]: P: 79 AK: 120 QRS: 88 T: 75 INTERPRETIVE STATEMENTS: Undetermined rhythm Nonspecific ST abnormality Abnormal ECG Compared to ECG 07/19/2022 16:46:32 Sinus rhythm no longer present Sinus arrhythmia no longer present Prolonged QT interval no longer present ST (T wave) deviation still present Electronically Signed On 07-30-22 07:46:53 CDT by Cliff Singh
== END 2022-07-24 17:20 | disposition home or self-care (01) | DRG 190 ==
LOC: ER 15:37 → INTOOBSV 19:03 → OBSVTOIN 19:03 → ERHOLD 19:03 → 2ND 20:01 → OBSVTOIN 07-21 14:37
PROVIDERS: ADMIT Hospitalist; ATTEND Internal Medicine
DX: J44.1 Chronic obstructive pulmonary disease with (acute) exacerbation (principal); J96.21 Acute and chronic respiratory failure with hypoxia; E87.20 Acidosis, unspecified; R65.10 Systemic inflammatory response syndrome (SIRS) of non-infectious origin without acute organ dysfunction; F41.8 Other specified anxiety disorders; E05.80 Other thyrotoxicosis without thyrotoxic crisis or storm; E78.5 Hyperlipidemia, unspecified; T48.6X5A Adverse effect of antiasthmatics, initial encounter; Z88.0 Allergy status to penicillin; Z88.1 Allergy status to other antibiotic agents; Z79.52 Long term (current) use of systemic steroids; Z99.81 Dependence on supplemental oxygen; Z90.710 Acquired absence of both cervix and uterus; Z28.311 Partially vaccinated for COVID-19; Z87.891 Personal history of nicotine dependence; Z79.899 Other long term (current) drug therapy; Z20.822 Contact with and (suspected) exposure to COVID-19
CPT/HCPCS: 36415; 70450; 71045; 80048; 80053; 80061; 81003; 82805; 83605; 83735; 84100; 84439; 84443; 85025; 85379; 85610; 85730; 87040; 87804; 93005; 94010; 94640; 94760; 97112; 97116; 97161; 99285; G0378; J1650; J2920; J2930; J3475; J3535; J7030; J7512; J7613; J7614; U0003

== ENCOUNTER → 2023-05-23 | Emergency (ER) | payer OTHER ==
[~2023-05-23] MED LIST: CEFTRIAXONE 1000 MG/VIAL ONE; DOXYCYCLINE 100 MG CAP PO ONE
--- OUTSIDE RECORDS SUMMARY | 2023-05-23 16:45 | XMS REPORT | Continuity of Care Document ---
Author Name Unknown Address [address] [place] [address] [facility] Address [address] [place] [address] Care Team Providers Care Value Stream Manager Name Role Phone Natlaia Stevens RN Attending Clinician Unavail able PERSON, JUAN CARLOS Attending Clinician Unavailable Anderson Saeed MD Attending Clinician [phone] Person Juan Carlos [facility] Attending Clinician [phone] PERSON, JUAN CARLOS Admitting Clinician Unavailable Person Juan Carlos [facility] Admitting Clinician [phone] Payers Payer Name Policy Type Policy Number Effective Date Expirati on Date Source Problems Condition Name Condition Details Condition Category Status Onset Date Resolution Date Last Treatment Date Treating Clinician Comments Source Seizure Seizure Disease Active 11-26 00:00: 00 [facility] Trauma Trauma Disease Active 11-25 00:00: 00 [facility] Allergies, Adverse Reactions, Alerts Allergy Name Allergy Type Status Severity Reaction(s) Onset Date Inactive Date Treating Clinician Comments Source NO KNOWN ALLERGIE S Drug Class Active [facility] Social History Social Habit Start Date Stop Date Quantity Comments Source [facility] History [facility] tobacco use Passive smoker [facility] History of Social function 2022-11-27 00:00:00 2022-11-27 00:00:00 [facility] Tobacco Comment 2022-11-25 00:00:00 2022-11-25 00:00:00 Stopped smoking 9years ago [facility] Tobacco use and exposure 2022-11-25 00:00:00 2022-11-25 00:00:00 Smokeless tobacco non-user [facility] Sex Assigned At 1960 00:00:00 1960 00:00:00 [facility] Smoking Status Start Date Stop Date Source Ex-smoker 2022-11-25 00:00:00 2022-11-25 00:00:00 [facility] Medications Ordered Medication Name Filled Medication Name Start Date Stop Date Current Medication? Ordering Clinician Indication Dosage Frequency Signature (SIG) Comments Components Source albuterol 90 mcg/actuati on inhaler 11-27 15:25: 29 11-27 00:00 :00 No 2{puff} Inhale 2 Puffs. [facility] clonazePAM 0.5 mg tablet 11-27 15:25: 11-27 00:00 :00 No 1.5mg Take 3 tablets by mouth. [facility] FLUoxetine 40 mg capsule 11-27 15:25: 11-27 00:00 :00 No 40mg Take 1 capsule by mouth in the morning. [facility] clonazePAM (KLONOPIN) tablet 1 mg 11-27 02:00: 00 Yes 1mg 1 mg, Oral, QHS, First dose on Fri11/26/22 at 2100, Until Discontinu ed, Routine [facility] levETIRAcet am (KEPPRA) tablet 750 mg 11-27 01:00: 00 Yes 750mg 750 mg, Oral, BID, First dose on Fri11/26/22 at 2000, Until Discontinu ed, Routine [facility] levETIRAcet am 750 mg tablet 11-27 00:00: 00 Yes [id number] 750mg Take 1 tablet by mouth in the morning and 1 tablet in the evening. [facility] albuterol 90 mcg/actuati on inhaler 11-27 00:00: 00 Yes 2{puff} Inhale 2 Puffs. [facility] levETIRAcet am 750 mg tablet 11-27 00:00: 00 Yes [id number] 750mg Take 1 tablet by mouth in the morning and 1 tablet in the evening. [facility] albuterol 90 mcg/actuati on inhaler 11-27 00:00: 00 Yes 2{puff} Inhale 2 Puffs. [facility] albuterol (VENTOLIN) inhaler 2 Puff 11-26 21:37: 38 Yes 2{puff} 2 Puff, Inhalation , Q6HPRN, Starting on Fri11/26/22 at 1637, Until Discontinu ed, Routine, Wheezing, Shortness of Breath [facility] gadobenate dimeglumine (MULTIHANCE -15 mL) injection 14.3 mL 11-26 17:45: 00 11-26 17:45 :00 No [id number] .2mL/kg 14.3 mL (0.2 mL/kg ?71.5 kg), Intravenou s, ONCE, 1 dose, On Fri11/26/22 at 1245, Routine [facility] enoxaparin (LOVENOX) injection 30 mg 11-26 16:15: 00 Yes 30mg 30 mg, Subcutaneo us, Q12H, First dose (after last modificati on) on Fri11/26/22 at 1115, Until Discontinu ed, Routine [facility] pantoprazol e (PROTONIX) injection 40 mg 11-26 14:00: 00 11-27 18:32 :59 No 40mg 40 mg, Slow IV Push, Q24H, First dose on Fri11/26/22 at 0900, Until Discontinu ed [facility] methocarbam oL (ROBAXIN) injection 1,000 mg 11-26 11:00: 00 11-26 18:27 :07 No 1000mg 1,000 mg, Intravenou s, Q8H, First dose on Fri11/26/22 at 0600, Until Discontinu ed, Routine [facility] levETIRAcet am (KEPPRA) in NACL (ISO-OS) 500 mg/100 mL RTU 11-26 11:00: 00 11-26 13:00 :55 No 500mg 500 mg, IV Piggyback, Q12H, First dose on Fri11/26/22 at 0600, Until Discontinu ed, Administer over 15 Minutes, 100 mL [facility] LORazepam (ATIVAN) injection 2 mg 11-26 00:45: 00 11-26 01:00 :00 No 2mg 2 mg, Slow IV Push, ONCE, 1 dose, On Fri11/25/22 at 2000, JESSICA [facility] iopamidol (ISOVUE 370-500 mL) injection 90 mL 11-26 00:30: 00 11-26 00:30 :00 No [id number] 90mL 90 mL, Intravenou s, ONCE, 1 dose, On Fri11/25/22 at 1930, Routine [facility] LORazepam (ATIVAN) injection 2 mg 11-26 00:15: 00 11-25 23:22 :00 No 2mg 2 mg, Slow IV Push, ONCE, 1 dose, On Fri11/25/22 at 1915, STAT [facility] LORazepam (ATIVAN) injection 2 mg 11-26 00:00: 00 11-25 23:03 :00 No 2mg 2 mg, Slow IV Push, ONCE, 1 dose, On Fri11/25/22 at 1900, Routine [facility] levETIRAcet am (KEPPRA) in NACL (ISO-OS) 1,000 mg/100 mL RTU 11-26 00:00: 00 11-25 23:19 :00 No 1000mg 1,000 mg, IV Piggyback, ONCE, 1 dose, On Fri11/25/22 at 1900, Administer over 15 Minutes, 100 mL [facility] lactated ringers IV infusion 1,000 mL 11-25 23:45: 00 11-26 18:27 :07 No 1000mL at 125 mL/hr, 1,000 mL, IV Infusion, CONTINUOUS , Starting on Fri11/25/22 at 1845, Until Fri11/26/22 at 1327, Routine [facility] levETIRAcet am (KEPPRA) 750 mg in NaCl 0.9% (NS) 100 mL IV infusion 11-25 23:38: 00 11-26 00:34 :00 No 750mg 750 mg, IV Piggyback, ONCE, 1 dose, On Fri11/25/22 at 1845, Administer over 15 Minutes, 100 mL [facility] oxazepam (SERAX) capsule 15 mg 11-25 23:33: 06 Yes 15mg 15 mg, Oral, Q4HPRN, Starting on Fri11/25/22 at 1833, Until Discontinu ed, Routine, Only while awake for DBP equal to or greater than 100, HR equal to or greater than 100. [facility] ondansetron (ZOFRAN (PF)) injection 4 mg 11-25 23:29: 34 Yes 4mg 4 mg, Slow IV Push, Q6HPRN, Starting on Fri11/25/22 at 1829, Until Discontinu ed, Routine, Nausea and Vomiting (N/V) [facility] acetaminoph en (TYLENOL) tablet 650 mg 11-25 23:29: 34 Yes 650mg 650 mg, Oral, Q6HPRN, Starting on Fri11/25/22 at 1829, Until Discontinu ed, Routine, Pain (scale 1-3) [facility] ondansetron (ZOFRAN (PF)) injection 4 mg 11-25 23:00: 00 11-25 22:52 :00 No 4mg 4 mg, Slow IV Push, ONCE, 1 dose, On Fri11/25/22 at 1800, JESSICA [facility] predniSONE 10 mg tablet 11-12 00:00: 00 11-27 00:00 :00 No 10mg Take 1 tablet by mouth in the morning. [facility] Vital Signs Vital Name Observation Time Observation Value Comments S ource Systolic blood pressure 2022-11-27 17:27:00 105 mm[Hg] [facility] Diastolic blood pressure 2022-11-27 17:27:00 70 mm[Hg] [facility] Heart rate 2022-11-27 17:27:00 68 /min [facility] Body temperature 2022-11-27 17:27:00 36.56 Arabella [facility] Respiratory rate 2022-11-27 17:27:00 16 /min [facility] Oxygen saturation in Arterial blood by Pulse oximetry 2022-11-27 17:27:00 99 /min [facility] Body height 2022-11-26 01:34:00 162.6 cm [facility] Body weight 2022-11-26 01:34:00 71.5 kg [facility] BMI 2022-11-26 01:34:00 27.06 kg/m2 [facility] Procedures Procedure Date / Time Performed Performing Clinician Source VITAMIN B12, LEVEL 2022-11-27 09:37:00 Kim Shin [facility] FOLATE 2022-11-27 09:37:00 Kim Shin [facility] [facility] BASIC METABOLIC PANEL (NA, K , CL, CO2, GLUCOSE, BUN, CREATININE, CA) 2022-11-27 09:37:00 Bolivar Teresa [facility] CBC WITHOUT DIFF 2022-11-27 09:37:00 Bolivar Teresa [facility] MR BRAIN W WO CONTRAST WITH NEUROQUANT 2022-11-26 16:15:00 Ozzie Alfaro [facility] PROLACTIN 2022-11-26 01:26:00 Michael Lopez [facility] URINE DRUG (IMMUNOASSAY) - COMPREHENSIVE DRUG SCREEN 2022-11-26 01:26:00 Ruby Valdez [facility] MRSA / MSSA SCREEN BY PCRAKASH 2022-11-26 01:26:00 Angelica Nickerson [facility] ELECTROENCEPHALOGRAM 2022-11-26 00:00:00 Ruby Valdez [facility] CT TRAUMA THORAX W CONTRAST 2022-11-25 23:29:52 Michael Lopez [facility] CT TRAUMA THORACIC SPINE WO CONTRAST 2022-11-25 23:29:52 Michael Lopez [facility] CT TRAUMA ABDOMEN PELVIS W CONTRAST 2022-11-25 23:29:52 Michael Lopezdro [facility] CT TRAUMA LUMBAR SPINE WO CONTRAST 2022-11-25 23:29:52 Michael Lopez [facility] CT TRAUMA HEAD WO CONTRAST 2022-11-25 23:03:32 Michael Lopez [facility] CT TRAUMA CERVICAL SPINE WO CONTRAST 2022-11-25 23:03:32 Michael Lopez [facility] LIPASE 2022-11-25 22:43:00 Person, [facility] COMP. METABOLIC PANEL ([id number]) 2022-11-25 22:43:00 Person, [facility] ETHANOL 2022-11-25 22:43:00 Anderson Saeed [facility] CBC WITHOUT DIFF 2022-11-25 22:43:00 Person, [facility] PROTHROMBIN TIME / INR 2022-11-25 22:43:00 Person, [facility] ACTIVATED PARTIAL THRMPLAS DIEGO 2022-11-25 22:43:00 Person, [facility] HB ABO GROUPING 2022-11-25 22:43:00 Person, [facility] HOSPITAL ADMISSION 2022-11-25 05:01:00 Doctor Unassigned, [place] [facility] Encounters Start Date/Time End Date/Time Encounter Type Admission Type Attending [facility] Care Facility Care Department Encounter ID Source 2023-05-14 16:54:30 2023-05-14 16:54:30 Outpatient [facility] S[facility] [id number] Felipe Dhaliwal Zane 2023-05-06 10:29:22 2023-05-06 10:29:22 Outpatient [facility] SFA [id number] Felipe Degroot 2023-01-29 14:22:19 2023-01-29 14:22:19 Outpatient SFA SFA [id number] Felipe Degroot 2022-12-26 13:05:49 2022-12-26 13:05:49 Outpatient [facility] [id number] Felipe Degroot 2022-11-28 00:00:00 2022-11-28 00:00:00 Transition of Care Natalia Stevens [id number] [facility] 2022-11-25 17:41:00 2022-11-27 21:20:00 Inpatient JUAN CARLOS OLIVEIRA [facility] STR [id number] [facility] 2022-11-25 17:41:00 2022-11-27 21:20:00 Hospital Encounter Anderson Saeed Juan Carlos [facility] [id number] [facility] 2022-07-30 11:31:31 2022-07-30 11:31:31 Outpatient [facility] [id number] Felipe Degroot 2022-06-28 13:13:24 2022-06-28 13:13:24 Outpatient [facility] [id number] Felipe Degroot Results Test Description Test Time Test Comments Results Result Co mments Source [facility] 23:12:17* Test Item Value Reference Range Interpretation Comme nts NA (test code = 5752426332) 133 mmol/L 135-145 L K (test code = 4600480515) 5.0 mmol/L 3.5-5.0 CL (test code = 6310050035) 96 mmol/L 98-108 L CO2 TOTAL (test code = 7439584131) 22 mmol/L 23-31 L AGAP (test code = 6976817466) 15 2-16 BUN (test code = 5762815055) 7 mg/dL 7-23 GLUCOSE (test code = 0143129463) 122 mg/dL 70-110 H CREATININE (test code = 8665262216) 0.50 mg/dL 0.50-1.04 TOTAL BILI (test code = 9954980877) 0.6 mg/dL 0.1-1.1 CALCIUM (test code = 0990740379) 8.6 mg/dL 8.6-10.6 T PROTEIN (test code = 7227494744) 7.1 g/dL 6.3-8.2 ALBUMIN (test code = 6157730408) 4.8 g/dL 3.5-5.0 ALK PHOS (test code = 7093543930) 84 U/L 34-122 ALTv (test code = 1742-6) 44 U/L 5-35 H AST(SGOT) (test code = 1134815128) 47 U/L 13-40 H eGFR (test code = 7540611575) 124.6 mL/min/1.73m2 CHARO (test code = CHARO) Association of Glomerular Filtration Rate (GFR) and Staging of Kidney Disease* + --+ --+ ------+| GFR (mL/min/1.73 m2) ?| With Kidney Damage ?| ?Without Kidney Damage+ --------+ --------+ +| ?>90 ?| ?Stage one ?| ? Normal ?+ ---+ ---+ -------+| ?60-89 ?| ?Stage two ?| ? Decreased GFR ? + --+ --+ ------+| ?30-59 ?| ?Stage three ?| ? Stage three ? + --+ --+ ------+| ?15-29 ?| ?Stage four ? | ? Stage four ?+ ---+ ---+ -------+| ?<15 (or dialysis) ? ?| ?Stage five ? | ? Stage five ?+ ---+ ---+ -------+ *Each stage assumes the associated GFR level has been in effect for at least three months. ?Stages 1 to 5, with or without kidney disease, indicate chronic kidney disease. Notes: Determination of stages one and two (with eGFR >59mL/min/1.73 m2) requires estimation of kidney damage for at least three months as defined by structural or functional abnormalities of the kidney, manifested by either:Pathological abnormalities or Markers of kidney damage (including abnormalities in the composition of the blood or urine or abnormalities in imaging tests). Lab Interpretation (test code = 00640-5) Abnormal [facility] 23:12:17* Test Item Value Reference Range Interpretation Comme nts LIPASE (test code = 4073784019) 159 U/L 0-220 Lab Interpretation (test cod e = 04772-6) Normal [facility] Clinic[facility]th[facility]bin Time / [id number] 23:06:36* Test Item Value Reference Range Interpretation Comme nts PROTIME PATIENT (test code = 5964-2) 11.2 See_Comment [Automated [employer]] The system which generated this result transmitted reference range: 10.1 - 12.6 Seconds. The reference range was not used to interpret this result as normal/abnormal. INR (test code = 6301-6) 1.0 Normal INR <1.1; Warfarin Therapeutic range 2.0 to 3.0 or 2.5 to 3.5, depending upon the indications. Lab Interpretation (test code = 01285-3) Normal [facility]TT2023-09-11 23:06:36* Test Item Value Reference Range Interpretation Comme [facility] APTT Patient (test code = 3173-2) 31 See_Comment [Automated [employer]] The system which generated this result transmitted reference range: 26 - 36 Seconds. The reference range was not used to interpret this result as normal/abnormal. Lab Interpretation (test code = 68480-0) Normal [facility] Without [id number] 23:02:55* Test Item Value Reference Range Interpretation Comme [facility] WBC (test code = 6690-2) 11.53 See_Comment H [Automated message] The system which generated this result transmitted reference range: 4.30 - 11.10 10*3/?L. The reference range was not used to interpret this result as normal/abnormal. RBC (test code = 789-8) 4.51 See_Comment [Automated message] The system which generated this result transmitted reference range: 3.93 - 5.25 10*6/?L. The reference range was not used to interpret this result as normal/abnormal. HGB (test code = 718-7) 15.3 g/dL 11.6-15.0 H HCT (test code = 4544-3) 43.5 % 35.7-45.2 MCH (test code = 785-6) 33.9 pg 25.9-32.8 H MCV (test code = 787-2) 96.5 fL 80.6-95.5 H MCHC (test code = 786-4) 35.2 g/dL 31.6-35.1 H PLT (test code = 777-3) 203 See_Comment [Automated message] The system which generated this result transmitted reference range: 166 - 358 10*3/?L. The reference range was not used to interpret this result as normal/abnormal. MPV (test code = 98894-1) 10.0 fL 9.5-12.9 RDW-CV (test code = 788-0) 11.9 % 12.0-15.5 L RDW-SD (test code = 09480-3) 41.9 fL 39.0-49.9 NRBC x10^3 (test code = 2311042942) See_Comment [Automated [employer]] The system which generated this result transmitted reference range: 10*3/?L. The reference range was not used to interpret this result as normal/abnormal. NRBC/100 WBC (test code = 6531665773) 0.0 See_Comment [Automated [employer]] The system which generated this result transmitted reference range: 0.0 - 10.0 /100 WBCs. The reference range was not used to interpret this result as normal/abnormal. IPF % (test code = 3459595502) Lab Interpretation (test code = 43313-6) [facility] Clinic[facility] Screen - The Type and Screen expires at midnight on the 3rd day after it was drawn. A current Type and Screen is required when RBCs are requested. For all other blood products, a Type and Scr een performed during the current hospitalizati...2022-11-25 22:58:00* Test Item Value Reference Range Interpretation Comme nts ABO & RH (test code = 20) O POSITIVE IAT (test code = 1185) Negative [facility], [id number] 15:39:28SPECIMEN NUMBER: [id number] CULTURE, URINE SPECIMEN NUMBER: [id number] SPECIMEN COMMENT: URINE SOURCE: URINE REPORT STATUS: FINAL ISOLATE NUMBER 1: ORGANISM: 06/30/2022 >100,000 CFU/ML ENTEROCOCCUS SPECIES (GROUP D) IDENTIFICATION: 07/01/2022 ENTEROCOCCUS SPECIES (GROUP D) ENTEROCOCCUS SP. AMPICILLIN SENSITIVE <=2CIPROFLOXACIN INTERMED 2LEVOFLOXACIN SENSITIVE 2NITROFURANTOIN IN TERMED 64TETRACYCLINE SENSITIVE <=1VANCOMYCIN SENSITIVE 1 NOTE: NUMBERS DISPLAYED REPRESENT MINIMUM INHIBITORY CONCENTRATION (YOSEF) WHICH IS EXPRESSED IN MCG/ML. [facility] has important pathology staff changes effective 05/15/2022. New pathology staff will provide uninterrupted, excellent patient care and clinical consultation. See URL: [email or web address]. UNLESS OTHERWISE INDICATED, ALL TESTING PERFORMED AT [facility] [address] [place] [address] DIGITAL DEVELOPER: PATRICK ORTIZ M.D. CLIA NUMBER [id number] [facility] [place]. [id number] II PROFILE (TU,T4,FTI,TSH)2022-06-29 06:14:53* Test Item Value Reference Range Interpretation Comme nts T-UPTAKE (test code = 2817) 30.2 % 24.3-39.0 THYROX. BIND. CAPAC. (test c ode = 98548) 1.1 0.8-1.3 T4 (THYROXINE) (test code = 2819) 6.3 UG/DL 4.5-10.5 CORRECTED T4 (FTI) (test cod e = 2820) 5.7 UG/DL 4.2-11.6 TSH, THIRD GENERATION (test code = 2821) 1.130 UIU/ML 0.400-4.100 VITAMIN [id number] 06:14:53* Test Item Value Reference Range Interpretation Comme [facility] VITAMIN B-12 (test code = 2840) 530 PG/ML 200-950 VITAMIN D, 25 [id number] 05:57:16* Test Item Value Reference Range Interpretation Comme [facility] VITAMIN D, 25 OH (test code = 4958) 32 NG/ML SEE BELOW EFFECTIVE 11/2022, PLEASE NOTE NEW METHODOLOGY IS ELECTROCHEMILUMINESCENCE BINDING ASSAY. NOTE: 25-HYDROXYVITAMIN D ASSAY INCLUDES 25-HYDROXYVITAMIN D2 AND D3. INTERPRETIVE RANGES PEDIATRIC (<17 YEARS) . . . . . . . . . . . NG/ML 20-100ADULT: INSUFFICIENT . . . . . . . . . . . . . . NG/ML <20 SUBOPTIMAL . . . . . . . . . . . . . . . NG/ML 20-29 OPTIMAL . . . . . . . . . . . . . . . . . NG/ML 30-100 [facility] has important pathology staff changes effective 05/15/2022. New pathology staff will provide uninterrupted, excellent patient care and clinical consultation. See URL: [email or web address]. UNLESS OTHERWISE INDICATED, ALL TESTING PERFORMED AT [facility] [address] [place] [address] DIGITAL DEVELOPER: PATRICK ORTIZ M.D. CLIA NUMBER [id number] [facility] [place]. [id number] COMPREHENSIVE METABOLIC [id number] 05:02:48* Test Item Value Reference Range Interpretation Comme nts GLUCOSE (test code = 2217) 144 MG/DL 70-99 H BUN (test code = 2208) 6 MG/DL 8-23 L CREATININE (test code = 2214) 0.74 MG/DL 0.60-1.30 eGFR (2020 CKD-EPI) (test code = 45816) 91 ML/MIN/1.73 >60 CALC BUN/CREAT (test code = 2235) 8 RATIO 6-28 SODIUM (test code = 2231) 141 MEQ/L 133-146 POTASSIUM (test code = 2228) 3.8 MEQ/L 3.5-5.4 CHLORIDE (test code = 2215) 101 MEQ/L 95-107 CARBON DIOXIDE (test code = 2206) 29 MEQ/L 19-31 CALCIUM (test code = 2209) 9.5 MG/DL 8.5-10.5 PROTEIN, TOTAL (test code = 2229) 6.7 G/DL 6.1-8.3 ALBUMIN (test code = 2201) 4.7 G/DL 3.5-5.2 CALC GLOBULIN (test code = 2240) 2.0 G/DL 1.9-3.7 CALC A/G RATIO (test code = 2234) 2.4 RATIO 1.0-2.6 BILIRUBIN, TOTAL (test code = 2207) 0.3 MG/DL See_Comment [Automated me ssage] The system which generated this result transmitted reference range: <=1.2. The reference range was not used to interpret this result as normal/abnormal. ALKALINE PHOSPHATASE (test code = 2204) 110 U/L 40-140 AST (test code = 2218) 64 U/L 9-40 H ALT (test code = 2219) 58 U/L 5-40 H LIPID [id number] 05:02:48* Test Item Value Reference Range Interpretation Comme nts CHOLESTEROL (test code = 0) 219 MG/DL <200 H TRIGLYCERIDES (test code = 2) 101 MG/DL <150 HDL CHOLESTEROL (test code = 0) 55 MG/DL >39 CALC LDL CHOL (test code = 7) 143 MG/DL <100 H NOTE: CALCULATED LDL IS BASED ON LAMAR-SHARPE METHOD WHICHINCLUDES ADJUSTABLE TRIGLYCERIDE:VLDL CHOLESTEROL RATIO.THIS FACTOR VARIES BY MEASURED TRIGLYCERIDE AND NON-HDLCHOLESTEROL CONCENTRATIONS WITH INCREASED CALCULATED LDL SEENIN HIGHER TRIGLYCERIDE OR LOWER NON-HDL SPECIMENS. FOR MOREINFORMATION, SEE CLIENT ANNOUNCEMENT AT [email or web address] RATIO LDL/HDL (test code = 2238) 2.60 RATIO <3.22 HEMOGLOBIN [id number] 04:06:39* Test Item Value Reference Range Interpretation Comme nts HEMOGLOBIN A1c (test code = 00471) 5.4 % 4.2-5.6 CBC W/AUTO DIFF WITH [id number] 01:56:03* Test Item Value Reference Range Interpretation Comme nts WBC (test code = 1001) 7.2 K/UL 3.5-11.0 RBC (test code = 1002) 4.45 M/UL 3.80-5.40 HEMOGLOBIN (test code = 1003) 15.0 G/DL 11.5-15.5 HEMATOCRIT (test code = 1004) 43.4 % 34.0-45.0 MCV (test code = 1005) 97.5 fL 80.0-99.0 MCH (test code = 1006) 33.7 PG 25.0-33.0 H MCHC (test code = 1007) 34.6 G/DL 31.0-36.0 RDW (test code = 1038) 11.1 % 11.5-15.0 L NEUTROPHILS (test code = 1008) 58.3 % LYMPHOCYTES (test code = 1010) 25.0 % MONOCYTES (test code = 1011) 10.0 % EOSINOPHILS (test code = 1012) 5.3 % BASOPHILS (test code = 1013) 1.1 % IMMATURE GRANULOCYTES (test code = 1036) 0.3 % NUCLEATED RBCS (test code = 1065) 0.0 /100 WBC'S See_Comment [Automated messa ge] The system which generated this result transmitted reference range: 0.0. The reference range was not used to interpret this result as normal/abnormal. PLATELET COUNT (test code = 1015) 220 K/UL 130-400 ABSOLUTE NEUTROPHILS (test code = 1066) 4.20 K/UL 1.50-7.50 ABSOLUTE LYMPHOCYTES (test code = 1067) 1.80 K/UL 1.00-4.00 ABSOLUTE MONOCYTES (test code = 1068) 0.72 K/UL 0.20-1.00 ABSOLUTE EOSINOPHILS (test code = 1040) 0.38 K/UL 0.00-0.50 ABSOLUTE BASOPHILS (test code = 1069) 0.08 K/UL 0.00-0.20 ABS IMMATURE GRANULOCYTES (test code = 1020) 0.02 K/UL 0.00-0.10 ABS NUCLEATED RBCS (test code = 30971) 0.00 K/UL 0.00-0.11 Consult Notes Date/Time Note Provider Source 2022-11-25 19:49:00 /Ellyn/MCwGeXwZEjqk U7Aag1Z+huXmr7wsf9ZEwP NrTeqDqXoavgbyQ+[id number]:49:00A ssociated Order(s): CONSULT NEUROLOGY GENERAL NEUROLOGY CONSULT NOTE DATE OF SERVICE: 11/25/2022REQUESTING PHYSICIAN: Michael Lopez MD Reason for Consult: Seizure episodes.HISTORY OF PRESENT ILLNESS Mrs. Oakley is a 61-year-old woman with Hx of 3 seizure episodes (unknown circumstances), who is admitted to trauma after a fall from bar stool while drinking excessively.While in the ER, she had an episode of seizure and received 2 mg ativan, followed by return to awareness then a second episode during CTH aborted by ativan 2 mg, followed by a third episode after being transferred to the ICU aborted by ativan 2 mg. She was loaded with 1.75 g of Keppra while in the ER.Patient was providing minimal hx after receiving ativan, therefore, hx supplemented from chart and primary team.PAST MEDICAL HISTORY No past medical history on file.PAST SURGICAL HISTORY No past surgical history on file.FAMILY HISTORY No family history on file.SOCIAL HISTORY Social History Tobacco Use Smoking status: Former Types: Cigarettes Passive exposure: Current Smokeless tobacco: Never Tobacco comments: Stopped smoking 9years ago Reviewed patient's family, surgical and social hx. HOME MEDICATIONS No medications prior to admission. HOSPITAL MEDICATIONS Current Facility-Administered Medications Medication Dose Route Frequency Last Rate Last Admin methocarbamoL (ROBAXIN) injection 1,000 mg 1,000 mg Intravenous Q8H 1,000 mg at 11/26/22 0519 acetaminophen (TYLENOL) tablet 650 mg 650 mg Oral Q6HPRN 650 mg at 11/26/22 0418 enoxaparin (LOVENOX) injection 40 mg 40 mg Subcutaneous DAILY lactated ringers IV infusion 1,000 mL 1,000 mL IV Infusion CONTINUOUS 125 mL/hr at 11/26/22 0649 Rate Verify at 11/26/22 0649 levETIRAcetam (KEPPRA) in NACL (ISO-OS) 500 mg/100 mL RTU 500 mg IV Piggyback Q12H Stopped at 11/26/22 0628 ondansetron (ZOFRAN (PF)) injection 4 mg 4 mg Slow IV Push Q6HPRN oxazepam (SERAX) capsule 15 mg 15 mg Oral Q4HPRN pantoprazole (PROTONIX) injection 40 mg 40 mg Slow IV Push Q24H thiamine (VITAMIN B1) 100 mg in NaCl 0.9% (NS) piggyback 100 mg IV Piggyback DAILY ALLERGY No Known AllergiesREVIEW OF SYSTEMS General: (-) fever, (-) chills, (-) weight change, (-) dizziness, (-) fatigue, (-) change in appetiteSkin: (-) rash, (-) lesionHEENT: (-) headache, (-) change in hearing, (-) change in vision, (-) nasal discharge, (-) sore throatNeck: (-) pain, (-) difficulty swallowing, (-) massHeme: (-) bleeding disorderResp: (-) cough, (-) shortness of breath, (-) dyspnea on exertionCardio: (-) chest pain, (-) palpitations, (-) syncopeGI: (-) abdominal pain, (-) nausea, (-) vomiting, (-) diarrhea, (-) constipation, (-) melena, (-) hematochezia, (-) hematemesisGU: (-) dysuria, (-) hematuria, (-) increased frequency, (-) difficulty urinating, (-) difficulty initiatingEndo: (-) heat intolerance, (-) diabetes, (-) cold intolerance, (-) polyuria, (-) polydipsia, (-) renal insufficiency, (-) thyroid diseaseNeuro: See HPI Back: (-) pain, (-)spasmsMSS: (-) muscle pain, (-) joint pain, (-) claudicationPsych: (-) anxiety, (-) depression, (-) psychiatric disorderPHYSICAL EXAM Vitals: 11/26/22 0300 11/26/22 0400 11/26/22 0500 11/26/22 0600 BP: 94/71 114/69 108/74 115/67 Pulse: 61 71 79 66 Resp: 18 20 21 19 Temp: 36.4 ?C (97.5 ?F) 36.6 ?C (97.9 ?F) 36.7 ?C (98.1 ?F) 36.8 ?C (98.2 ?F) TempSrc: Bladder Bladder Bladder Bladder SpO2: 98% 99% 99% 99% Weight: Height: General: Somnolent but oriented x 4 (time, person, place and situation); no apparent distress. Mental Status: Consciousness, attention, concentration: normal, Stays focused and on task while being questioned.Speech/ Language: intact to comprehension, fluency, repetition and naming.Fund of knowledge: is congruent with level of education.Remote and recent memory: normal, can recall recent and distant memories Cranial Nerves:I. Not tested.II. PERRL. FOV full to confrontation.III. IV., . Extraocular movements intact without nystagmus.V. Normal sensation in V1-3 distributions.VII. No facial droop noted.VIII. Hearing intact.IX., X. Palatal elevation and gag response present symmetrically.XI. Normal Strength of sternocleidomastoid and trapezius muscles bilaterally.XII. Tongue in midline.Motor: Tone: normalBulk: normalSTRENGTH Right Left Deltoid 5 5 Biceps 5 5 Triceps 5 5 Wrist extensors 5 5 Interossei 5 5 Hip flexors 5 5 Knee flexors (hamstring) 5 5 Knee extensors (quadriceps) 5 5 Ankle dorsiflexors 5 5 Ankle plantar flexors 5 5 DTR's: Right Left Bicep 2+ 2+ Triceps 2+ 2+ Brachioradialis 2+ 2+ Patella 2+ 2+ Achilles 2+ 2+ Pathologic reflexes and signs:Bowling: absent Plantar response: muteCerebellar: Nystagmus: neg, FTN: nl, HTS:nl, Tremors: neg, Rapid alternating movements: normal Sensory:LT: intact, temperature: intact, PP: intact, proprioception: intact, Vibration: intactGait: DeferredHEENT: pupils equal, round, reactive to light; extraocular movements intact; oropharynx clear; moist mucous membranesLungs: clear to auscultation bilaterallyCardio: S1, S2 normalExtremities:no cyanosis,clubbing or edemaNeck:supple,no carotid bruit,no JVDAbdomen: soft; non-tender; non-distendedLABS Recent Results (from the past 24 hour(s)) CBC Without DIFF Collection Time: 11/25/22 5:43 PM Result Value Ref Range WBC 11.53 (H) 4.30 - 11.10 10*3/?L RBC 4.51 3.93 - 5.25 10*6/?L HGB 15.3 (H) 11.6 - 15.0 g/dL HCT 43.5 35.7 - 45.2 % MCH 33.9 (H) 25.9 - 32.8 pg MCV 96.5 (H) 80.6 - 95.5 fL MCHC 35.2 (H) 31.6 - 35.1 g/dL PLT 203 166 - 358 10*3/?L MPV 10.0 9.5 - 12.9 fL RDW-CV 11.9 (L) 12.0 - 15.5 % RDW-SD 41.9 39.0 - 49.9 fL NRBC x10^3 <0.01 10*3/?L NRBC/100 WBC 0.0 0.0 - 10.0 /100 WBCs IPF % CMP Collection Time: 11/25/22 5:43 PM Result Value Ref Range NA 133 (L) 135 - 145 mmol/L K 5.0 3.5 - 5.0 mmol/L CL 96 (L) 98 - 108 mmol/L CO2 TOTAL 22 (L) 23 - 31 mmol/L AGAP 15 2 - 16 BUN 7 7 - 23 mg/dL GLUCOSE 122 (H) 70 - 110 mg/dL CREATININE 0.50 0.50 - 1.04 mg/dL TOTAL BILI 0.6 0.1 - 1.1 mg/dL CALCIUM 8.6 8.6 - 10.6 mg/dL T PROTEIN 7.1 6.3 - 8.2 g/dL ALBUMIN 4.8 3.5 - 5.0 g/dL ALK PHOS 84 34 - 122 U/L ALTv 44 (H) 5 - 35 U/L AST(SGOT) 47 (H) 13 - 40 U/L eGFR 124.6 mL/min/1.73m2 Lipase Collection Time: 11/25/22 5:43 PM Result Value Ref Range LIPASE 159 0 - 220 U/L Prothrombin Time / INR Collection Time: 11/25/22 5:43 PM Result Value Ref Range PROTIME PATIENT 11.2 10.1 - 12.6 Seconds INR 1.0 aPTT Collection Time: 11/25/22 5:43 PM Result Value Ref Range APTT Patient 31 26 - 36 Seconds Type and Screen - The Type and Screen expires at midnight on the 3rd day after it was drawn. A current Type and Screen is required when RBCs are requested. For all other blood products, a Type and Screen performed during the current hospitalizati... Collection Time: 11/25/22 5:43 PM Result Value Ref Range ABO & RH O POSITIVE IAT Negative ETHANOL Collection Time: 11/25/22 5:43 PM Result Value Ref Range ALCOHOL 212 mg/dL MRSA / MSSA Screen by PCR, Nares Collection Time: 11/25/22 8:26 PM Specimen: NARES, BOTH SIDES; Swab Result Value Ref Range MRSA Screen by PCR, Nares Negative Negative MSSA Screen by PCR, Nares Negative Negative MRSA/MSSA Positive? No No URINE DRUG (IMMUNOASSAY) - COMPREHENSIVE DRUG SCREEN Collection Time: 11/25/22 8:26 PM Result Value Ref Range AMPHET Negative Negative BREANNA U Negative Negative BENZO U Negative Negative Cocaine Metabolite Negative Negative METHADONE Negative Negative OPIATES Negative Negative PCP Negative Negative THC Negative Negative PROLACTIN Collection Time: 11/25/22 8:26 PM Result Value Ref Range PROLACTIN 17.7 2.7 - 19.6 ng/mL RADIOLOGY CT TRAUMA THORAX W CONTRASTResult Date: 11/25/2022 CT evidence of intra-thoracic or intra-abdominal traumatic injury. Hepatic steatosis Preliminary Report Dictated by Resident: Soco Dan MD., have reviewed this study and agree with the above report.CT TRAUMA ABDOMEN PELVIS W CONTRASTResult Date: 11/25/2022 CT evidence of intra-thoracic or intra-abdominal traumatic injury. Hepatic steatosis Preliminary Report Dictated by Resident: Soco Dan MD., have reviewed this study and agree with the above report.CT TRAUMA THORACIC SPINE WO CONTRASTResult Date: 11/25/2022 acute fracture or traumatic malalignment of the thoracic or lumbar spine. Preliminary Report Dictated by Resident: Brook Bertrand MD., have reviewed this study and agree with the above report.CT TRAUMA LUMBAR SPINE WO CONTRASTResult Date: 11/25/2022 acute fracture or traumatic malalignment of the thoracic or lumbar spine. Preliminary Report Dictated by Resident: Brook Bertrand MD., have reviewed this study and agree with the above report.CT TRAUMA HEAD WO CONTRASTResult Date: 11/25/2022 acute intracranial hemorrhage or mass effect. No acute cervical spine fracture or traumatic malalignment. Preliminary Report Dictated by Resident: Brook Dan MD., have reviewed this study and agree with the above report.CT TRAUMA CERVICAL SPINE WO CONTRASTResult Date: 11/25/2022 acute intracranial hemorrhage or mass effect. No acute cervical spine fracture or traumatic malalignment. Preliminary Report Dictated by Resident: Brook Dan MD., have reviewed this study and agree with the above report. ASSESSMENT AND RECOMMENDATIONS Mrs. Oakley is a 61-year-old woman with Hx of 3 seizure episodes (unknown circumstances), who is admitted to trauma after a fall from bar stool while drinking excessively.Given previous seizure episodes, recommend obtaining seizure workup with MRI brain wwo and EEG and starting Keppra maintenance 750 BID after load of 1.75 g (all ordered).Alcohol level >200, making alcohol induced seizure a likely diagnosis.Our impression is: Previous seizure episodesCurrent seizure episodesAlcohol induced seizures vs seizure disorder - MRI brain wwo contrast - Spot EEG- Maintenance Keppra 750 BIDDiscussed with primary team, Neurology will: continue to follow. Case was discussed with Dr. Gonzalez, neurology faculty, and will be seen in the morning.Neurology Consult Pager: [phone] MD CourtneyNeurology resident ssociated attestation - Guilherme Gonzalez MD - 11/26/2022 9:15 PM CDT Case d/w Dr. Valdez last night, and I saw and examined the patient with neurology consult on 11/26/2022. I agree with the findings and plans as outlined in the resident note. I actively participated in the decision making process and formulated the plan with the resident. Guilherme Gonzalez M.D., Ph.D., FAAN, Preetiofessor, Neurology [id number] [id number], Xiang1.2.840.559757.1.13.104.2.7.2.490742M jtaSghqySJ1497-73-31Q22:15:12Consult noteTXT1.2.840.841258.1.13.104.2.7.2.22415 9|[id number] for patient essc66398-9Zycnspn noteLNUTMBUT57 [address] StreetQz[id number] WWFXWBQDNBUPTUAG8166-15-77M16:15:121.2.840 .896468.1.72.3.15|1.2.840.620495.1.13.104. 2.7.2.727879_[id number] [facility] - Health History and Physical Notes Date/Time Note Provider Source 2022-11-25 18:58:33 EppigGs8HbFDzHE528AW Q9YlXTFfcbmqwwZqXIL Shaniz+GGgBe2m81sZ9wDhW79w1856-21-04O73: 58:33 Images from the original note were not included.TRAUMA SURGERY HISTORY AND PHYSICALDate of Service: 11/25/22 ATTENDING PHYSICIAN: Doroteo complaint: HISTORY OF MECHANISM OF INJURYPatient was drinking at a bar at 1 PM today, a dog had its leash wrapped around the stool she was on and when it began to run away, the stool slid under her and she fell. + HS + LOC. GCS 9 on the field. Patient was life flighted from Date of Injury- 11/25/22 Time of Injury- precise time unknownPatient was taken to the CT scanner after a reassuring primary survey and presented an episode of tonic-clonic seizures while in the Ct scanner. 2 mg Ativan was administered.PRIMARY SURVEY/RESUSCITATIONVitals:Temp: [37 ?C (98.6 ?F)] Heart Rate (monitor): [84-88] Pulse: [84-104] Resp: [16-21] BP: (108-155)/(70-88) MAP (mmHg): [82-92] Vitals: 11/25/22 1755 11/25/22 1810 11/25/22 1825 11/25/22 1840 BP: 138/79 120/78 114/70 108/75 Pulse: 98 84 86 84 Resp: Temp: TempSrc: SpO2: 95% 100% 99% 99% Weight: Height: Airway: PatentComment-Breathing: Bilateral breath sounds equalCirculation:Radial pulses present and equal and Pedal pulses present and equal Disability:Glascow Coma Scale:Glascow Coma ScaleEye Opening: Spontaneous= 4Best Verbal Response: Confused= 4Best Motor Response: Obeys command= 6TOTAL: 14Pupils: Equal/reactive and 3 mmExposure:SECONDARY SURVEY/PHYSICAL EXAM1. HEAD a. Inspect and palpate scalp and face for fractures. Normal b. Perform otoscopic examination of nose and ears (CSF leak, hemotympanum). Normal c. Examine eyes. - Eye movement Normal -Size of Pupils Normal -Reaction of pupils to light Normal -Visual acuity Normal d. Inspect mouth for malocclusion, carious and/or missing teeth and lacerations. Normal e. Check for facial fractures: -Palpate nose; inspect septum for hematoma. Normal -Palpate zygomatic arches and infraorbital ridges. Normal -Check stability of midface and mandible. Bela 2. NECK a. Inspect for wounds, hematoma, swelling and venous distention. Normal b. Palpate for subcutaneous emphysema and tracheal deviation. Normal c. Palpate cervical spine for evidence of injury. Normal 3. CHEST a. Inspect for wounds, hematoma, swelling and ecchymosis. Normal b. Observe chest and it's movements (prominent hemothorax, paradoxical, etc). Normal c. Palpate for fractures and subcutaneous emphysema. Check thoracic cage stability using anterior-posterior and lateral compressions. Normal d. Auscultate for breath and heart sounds. Normal 4. ABDOMEN a. Inspect for wounds, hematoma, swelling and ecchymosis. Normal b. Auscultate for bowel sounds. Normal c. Palpate for tenderness, guarding (voluntary vs. involuntary), rebound, and masses (bladder, etc). Normal d. Check stability of pelvis by compressing iliac wings and symphysis pubis. Normal 5. MUSCULOSKELETAL a. Observe posture (decerebrate, decorticate, etc) and identify wounds, swelling, ecchymosis, and hematoma.. Normal b. Palpate each extremity for tenderness, deformity, crepitus, and/or fracture. Record pulses. Normal c. Record muscle strength, range of motion and sensation bilaterally. Normal d. Record pulses. Normal 6. GENITALIA AND PERINEUM a. Inspect penis (blood at meatus) and perineum (ecchymosis or laceration), priapism. Deferred b. Perform rectal exam. Record: - Position of prostate - Anal sphincter activity - Rectal sensation - Rectal blood 7. BACK (logroll patient with neck stabilized) a. Inspect for wounds, hematuria, swelling, ecchymosis and fractures. Normal b. Palpate spinal vertebrae, ribs and pelvis for tenderness and/or fractures. Normal FASTNegativeHISTORYALLERGIES: No Known Allergies MEDICATIONS: Home Medications: (Not in a hospital admission) Hospital Medications:Current Facility-Administered Medications Medication Dose Route Frequency Last Rate Last Admin acetaminophen (TYLENOL) tablet 650 mg 650 mg Oral Q6HPRN [START ON 11/26/2022] enoxaparin (LOVENOX) injection 40 mg 40 mg Subcutaneous DAILY [COMPLETED] iopamidol (ISOVUE 370-500 mL) injection 90 mL 90 mL Intravenous ONCE 90 mL at 11/25/221929 lactated ringers IV infusion 1,000 mL 1,000 mL IV Infusion CONTINUOUS levETIRAcetam (KEPPRA) 750 mg in NaCl 0.9% (NS) 100 mL IV infusion 750 mg IV Piggyback ONCE [START ON 11/26/2022] levETIRAcetam (KEPPRA) in NACL (ISO-OS) 500 mg/100 mL RTU 500 mg IV Piggyback Q12H ondansetron (ZOFRAN (PF)) injection 4 mg 4 mg Slow IV Push Q6HPRN oxazepam (SERAX) capsule 15 mg 15 mg Oral Q4HPRN [START ON 11/26/2022] pantoprazole (PROTONIX) injection 40 mg 40 mg Slow IV Push Q24H thiamine (VITAMIN B1) 100 mg in NaCl 0.9% (NS) piggyback 100 mg IV Piggyback DAILY No current outpatient medications on file. Levalbuterol inhalerPrednisone 10 mg BIDPAST MEDICAL HISTORY:No problems updated. No past medical history on file. COPD on home oxygen 3 L NC, evaluated for lung transplant previouslyRemote history of seizures.PAST SURGICAL HISTORY:No past surgical history on file.Hysterectomy 1980sFAMILY HISTORY: No family history on file. SOCIAL HISTORY: Social History Socioeconomic History Marital status: Not on file Spouse name: Not on file Number of children: Not on file Years of education: Not on file Highest education level: Not on file Occupational History Not on file Tobacco Use Smoking status: Not on file Smokeless tobacco: Not on file Substance and Sexual Activity Alcohol use: Not on file Drug use: Not on file Sexual activity: Not on file Other Topics Concern Not on file Social History Narrative Not on file Social Determinants of Health Financial Resource Strain: Not on file Food Insecurity: Not on file Transportation Needs: Not on file Physical Activity: Not on file Stress: Not on file Social Connections: Not on file Intimate Partner Violence: Not on file Housing Stability: Not on file Review of Systems: As per HPIEstimated Weight: Vitals: 11/25/22 1737 Weight: 79.4 kg (175 lb) Lab Results:Labs (last 24 hours):Chemistry CBC LFTs Coags, other 133 (L) 96 (L) 7 122 (H) 11.53 (H) 15.3 (H) 203 AST: 47 (H) ALT: 44 (H) PT: 11.2 INR: 1.0 5.0 22 (L) 0.50 43.5 AP: 84 T Giovanni: 0.6 PTT: 31 eGFR: 124.6 Ca: 8.6 % Gil: - Prot: 7.1 Alb: 4.8 Lact: - Mg: - PO4: - ANC: - Procal: - Respiratory Cardiac -|-|-|-|- D-dimer: - pBNP: - Trop I: - CK: - CKMB: - Ethanol level 212Radiology Results:CT TRAUMA THORACIC SPINE WO CONTRASTResult Date: 11/25/2022No acute fracture or traumatic malalignment of the thoracic or lumbar spine. Preliminary Report Dictated by Resident: Brook Bertrand MD., have reviewed this study and agree with the above report.CT TRAUMA LUMBAR SPINE WO CONTRASTResult Date: 11/25/2022No acute fracture or traumatic malalignment of the thoracic or lumbar spine. Preliminary Report Dictated by Resident: Brook Bertrand MD., have reviewed this study and agree with the above report.CT TRAUMA HEAD WO CONTRASTResult Date: 11/25/2022No acute intracranial hemorrhage or mass effect. No acute cervical spine fracture or traumatic malalignment. Preliminary Report Dictated by Resident: Brook Dan MD., have reviewed this study and agree with the above report.CT TRAUMA CERVICAL SPINE WO CONTRASTResult Date: 11/25/2022No acute intracranial hemorrhage or mass effect. No acute cervical spine fracture or traumatic malalignment. Preliminary Report Dictated by Resident: Azael Trejo I, Brook Foley MD., have reviewed this study and agree with the above report. ASSESSMENT/INJURY BURDEN: Denise Oakley is a 61 year old female presenting as a trauma eval after fall from barstool . On arrival to ED patient , Primary survey was stable. Trauma clinical examination and ancillary studies support the following injury burden:Head and Face: No injuriesNeck: No injuriesThorax: No injuriesAbdomen and Pelvis: No injuriesSpine: No injuriesExtremities: No injuriesExternal/other: No injuries Additionally, patient presented seizure activity in the ED during evaluation. PLAN:- Three doses 2 mg ativan were given in ED- Neurology was consulted due to seizures, please see their separately written recommendations- Admit to Neuro ICU, tertiary in AM. Cervical collar at all times due to acute intoxication-1L LR, maintenance fluids, thiamine IV.-Keppra 1.75 g loading dose, 500 mg bid maintenancePt seen and discussed with faculty, Dr. Saeed. Michael Todd, MDPGY- 1 General Surgery ssociated attestation - Anderson Saeed MD - 11/26/2022 6:45 AM CDT AttendingI personally examined the patient on 11/25/22 and agree with the Resident note by Dr. Jerad Todd as written. I actively participated in the decision-making process. Please see the note for additional details. The history and physical exam and medical decision making was directed by me. Briefly, 61 year old female presenting as a trauma eval after fall from barstool .PROBLEMS: Acute fall complicated by seizures and EtOH intoxication Review and interpretation of testsNew tests orderedDiscussed with Neurology (external provider)High (H) risk indicated by Other extenuating risks including recurrent seizures (major)(H)History of/underlying No past medical history on file.PLAN:- Ativan- Neurology consult- Admit to Neuro ICU, tertiary in AM. -1L LR, maintenance fluids, thiamine IV.-Anuj CPT: 94197Cjkdqta Welsh, MDTrauma/Acute Care Surgery Dvzmzul16952-3Mjfavsd and physical [id number], Francis1.2.840.955422.1.13.104.2.7.2.83 2131IvlrmGzhdtsdUE0667-89-19R50:45:42Hi story and physical noteTXT1.2.840.994023.1.13.104.2.7.2.72 7879|[id number] for patient zopb34261-9Ymhcvaa and physical earrFJYRY-IUOBOYBQTW-LVAUSNFSSZSAJYW - Health[address] [employer] Kl[id number] LLHQEYDNREVWUXIDRIN9054-18-64G78:45:421 .2.840.304014.1.72.3.15|1.2.840.691917. 1.13.104.2.7.2.727879_[id number] [facility] Notes Date/Time Note Provider Source 2022-11-28 16:12:17 /c9Mx73xkGDYg++HiTpv 9wcaUH5WqcPO kdlsloGWJ1TgFYZe3FeJ7IUU5TYj1nkO 1980-75-07X75:12:17 TRANSITIONAL CARE MANAGEMENT ASSESSMENT11/28/2022 Denise OakleyLcyazk230913KLmcig Joann Oakley is a 61 year old /White female was admitted on 11/25/[address] She was discharged on 11/27/22 with discharge disposition of HR- Routine Discharge.Admitting Physician: Brodie Alford Diagnosis: Trauma Linked Episodes Type: Episode: Status: Noted: Resolved: Last update: Updated by: TRANSITION OF CARE TCM Active 11/27/2022 11/28/2022 4:10 PM Natalia Stevens, RN Comments: TCM Ssv-mxvh-zv-face outreach documentation:Discharge AssessmentChart Assessed: 11/28/22TCM Outreach Completed: 11/28/22Do you have a few minutes to speak with me about how you are doing at home?: Yes (pt reports she is doing ok and denies having any questions/concerns at this time.)Discharge InstructionsDo you understand your at-home instructions?: YesMedicationsHave you filled your prescriptions and do you have them in your home? 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)Do you know how to take your medications?: YesCan you provide me with the names or descriptions of any dfgj-uue-wjopfec or supplements you are currently taking?: YesSuppliesDid you receive applicable home medical supplies/equipment?: N/AFollow Up AppointmentHas a follow up appointment been scheduled?: NoMay I assist with scheduling this appointment?: Patient has outside PCPDo you have any questions about your follow up appointments?: [facility] AssistanceHas the home health nurse contacted you since you've been home?: N/ASurvey - RecognitionIs there anything you would like to share about your recent hospitalization, or anyone you would like to recognize?: NoDo you have any suggestions for improvement?: NoDo you have any other questions or concerns at this time?: NoFuture Appointments: 71879-6Ymyeutcwz encounter GrigOB9108-35-24M89:12:53Telepho ne encounter NoteTXT1.2.840.430899.1.13.104.2 .7.2.012826|[id number] e for patient [id number] L Deborde RN[address] HrzfLhbuuieecBxevryzqyONYL767823 0381YZAEIFQUFGDRGBSRLSKDIL4353-7 9-14T16:12:531.2.840.693726.1.72 .3.15|1.2.840.152090.1.13.104.2. 7.2.727879_[id number] Natalia Stevens RN [facility] 2022-11-27 00:00:24 SnXtORu18OyfiY568UzZ QtNH7/OFQyEQ FJ9Cp4lAFi/z+iuwX8WU4Uzl9WY7sHR6 6906-94-44M28:00:24 Problem: Seizures, Risk of / or ActualGoal: Absence of injury related to seizure activityOutcome: Progressing as expectedGoal: Absence of seizure activityOutcome: Progressing as expected Problem: Discharge PlanningGoal: Adequate for dischargeOutcome: Progressing as expectedGoal: Effective communicationOutcome: Progressing as expected Problem: Falls, Risk ofGoal: Absence of fallsOutcome: Progressing as expected Problem: Mental Status - Impaired, Risk ofGoal: Mental status restored to baselineOutcome: Progressing as expectedGoal: Absence of physical injuryOutcome: Progressing as expected Problem: PainGoal: Control of pain at or below patient's documented comfort goalOutcome: Progressing as expectedGoal: Reduction in pain sensationOutcome: Progressing as expected Problem: Respiratory Function - ImpairedGoal: Adequate oxygenationOutcome: Progressing as expectedGoal: Adequate work of breathingOutcome: Progressing as expected 81554-0Kwjm of care quhiLK7417-91-45P42:00:29Plan of care noteTXT1.2.840.029791.1.13.104.2 .7.2.861074|[id number] e for patient [id number] k Smith-Ellis RNUT[address] PvxkXdbycbeipHbmsyijzwJMMQ986154 3422LYMXHQWMTRPYHHZIQUKACN0148-8 11-27T00:00:291.2.840.870446.1.72 .3.15|1.2.840.578576.1.13.104.2. 7.2.727879_[id number] Mayco Abdalla RN [facility] 2022-11-26 08:39:55 nBrwvs0ywhxNV/Wh+3BE Bv03/AoS7lrV C46zOn3MkTuYVEVRoIa46iwl6VYwlnm2 1871-45-80U32:39:55 Problem: Seizures, Risk of / or ActualGoal: Absence of injury related to seizure activityOutcome: Progressing as expectedGoal: Absence of seizure activityOutcome: Progressing as expected Problem: Discharge PlanningGoal: Adequate for dischargeOutcome: Progressing as expectedGoal: Effective communicationOutcome: Progressing as expected Problem: Falls, Risk ofGoal: Absence of fallsOutcome: Progressing as expected Problem: Mental Status - Impaired, Risk ofGoal: Mental status restored to baselineOutcome: Progressing as expectedGoal: Absence of physical injuryOutcome: Progressing as expected Problem: PainGoal: Control of pain at or below patient's documented comfort goalOutcome: Progressing as expectedGoal: Reduction in pain sensationOutcome: Progressing as expected Problem: Respiratory Function - ImpairedGoal: Adequate oxygenationOutcome: Progressing as expectedGoal: Adequate work of breathingOutcome: Progressing as expected 07617-2Vsmb of care ykyoLB8067-77-48T13:40:00Plan of care noteTXT1.2.840.042783.1.13.104.2 .7.2.408679|[id number] e for patient [id number] ramya Stauffer RNUT[address] PdlyDcwpgcrtmNxfderlfbJVXR664284 3668HQSVBLIPLGRGUCNNQSUMUV1704-0 11-26T08:40:001.2.840.989888.1.72 .3.15|1.2.840.899911.1.13.104.2. 7.2.727879_[id number] Glendy Stauffer RN [facility] 2022-11-26 01:44:18 whEyPtpK7wKQoATkkY8I mK9pKFz63Ec0 Ndac2fPxv8nVMfIAopuGId6hhbejyU/5 6550-12-13H11:44:18 Problem: Seizures, Risk of / or ActualGoal: Absence of injury related to seizure activityOutcome: Progressing as expectedGoal: Absence of seizure activityOutcome: Progressing as expected Problem: Discharge PlanningGoal: Adequate for dischargeOutcome: Progressing as expectedGoal: Effective communicationOutcome: Progressing as expected Problem: Falls, Risk ofGoal: Absence of fallsOutcome: Progressing as expected Problem: Mental Status - Impaired, Risk ofGoal: Mental status restored to baselineOutcome: Progressing as expectedGoal: Absence of physical injuryOutcome: Progressing as expected Problem: PainGoal: Control of pain at or below patient's documented comfort goalOutcome: Progressing as expectedGoal: Reduction in pain sensationOutcome: Progressing as expected Problem: Respiratory Function - ImpairedGoal: Adequate oxygenationOutcome: Progressing as expectedGoal: Adequate work of breathingOutcome: Progressing as expected 00242-4Eaqq of care xwdhRI4225-16-69O32:44:28Plan of care noteTXT1.2.840.845062.1.13.104.2 .7.2.684936|[id number] e for patient oodw72355-6YjmdLHZGEAXWMX[address] GgxeIgrfbbtngDsypvkbbhNYZZ985772 1562WEVTEIQQESWQLWVECEHDMP1674-4 11-26T01:44:281.2.840.864700.1.72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
[2023-05-23 17:29] LABS: Absolute Basophils 0.1 K/uL (0-0.5); Absolute Eosinophils 0.2 K/uL (0-0.5); Absolute Lymphocytes (CBC) 2.4 K/uL (0.7-4.9); Basophils % 0.9 % (0-1.3); Eosinophils % 2.6 % (0-4.4); Hematocrit 39.6 % (36.0-45.0); Lymphocytes % 36.6 % (15.3-44.8); MCV 97.5 fL (80-100); MPV 7.8 fL (7.6-11.3); Platelets 208 thou/uL (152-406); RBC Red Blood Cell Count 4.07 M/uL (3.86-4.86)
[2023-05-23 17:32] LABS: Protime INR 1.07
[2023-05-23 17:41] LABS: Anion Gap 11.7 mEq/L (5.0-15.0)
[2023-05-23 17:42] LABS: Potassium 3.7 mEq/L (3.5-5.1)
--- NOTE | 2023-05-23 18:18 | RAD REPORT ---
EXAM DESCRIPTION: US - Extremity Venous Uni Ltd - 05/23/2023 6:12 pm CLINICAL HISTORY: Pain swelling COMPARISON: None. TECHNIQUE: Real-time sonographic evaluation of the right lower extremity deep venous system was perf ormed. FINDINGS: Normal compressibility, flow augmentation, phasic flow and spontaneous flow is identified in the right lower extremity deep venous system. No intraluminal filling defects seen. IMPRESSION: No DVT in the right lower extremity.
--- NOTE | 2023-05-23 18:20 | RAD REPORT ---
EXAM DESCRIPTION: US - Lower Extremity Artery Uni Ltd - 05/23/2023 6:12 pm CLINICAL HISTORY: Pain swelling COMPARISON: None FINDINGS: Color Doppler, grayscale, and spectral analysis was performed. The common femoral, superficial femoral and popliteal arteries demonstrate triphasic waveforms The posterior tibial and dorsalis pedis arteries demonstrate triphasic waveforms . IMPRESSION: No flow limiting arterial stenosis in the right lower extremity. Multiphasic waveforms t hroughout.
--- NOTE | 2023-05-23 19:18 | RAD REPORT ---
EXAM DESCRIPTION: RAD - Tib Fib Right - 05/23/2023 7:14 pm CLINICAL HISTORY: SWELLING COMPARISON: No comparisons FINDINGS/IMPRESSION: No acute fracture. No malalignment. No significant focal degenerative changes.
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
[2023-05-23 20:36] VITALS: BP 116/63; TEMP 97.3; O2SAT 100
== END ==
LOC: ER 16:42
DX: L03.115 Cellulitis of right lower limb (principal); J44.9 Chronic obstructive pulmonary disease, unspecified; Z99.81 Dependence on supplemental oxygen; Z88.0 Allergy status to penicillin; Z88.2 Allergy status to sulfonamides
CPT/HCPCS: 87070; 85025; 80048; 36415; 87205; 85610; 73590; 93926; 93971; 96374; 99285; J0696

== ENCOUNTER 2023-07-17 13:17 | Inpatient (IN) | payer OTHER ==
--- OUTSIDE RECORDS SUMMARY | 2023-07-17 13:19 | XMS REPORT | Continuity of Care Document ---
Author Name Unknown Address [address] [facility] [place] [address] [facility] Address [address] [facility] [place] [address] Care Team Providers Care Technical Instructor Course Developer Name Role Phone Rodney POON, Natalia Calderon Attending Clinician Unavail able PERSON, JUAN CARLOS Attending Clinician Unavailable Anderson Saeed MD Attending Clinician [phone] Person Juan Carlos SOSA Attending Clinician [phone] PERSONJUAN CARLOS Admitting Clinician Unavailable Person Juan Carlos SOSA Admitting Clinician [phone] Payers Payer Name Policy Type Policy Number Effective Date Expirati on Date Source Problems Condition Name Condition Details Condition Category Status Onset Date Resolution Date Last Treatment Date Treating Clinician Comments Source Seizure Seizure Disease Active 11-26 00:00: 00 [facility] Trauma Trauma Disease Active 11-25 00:00: 00 [facility] Allergies, Adverse Reactions, Alerts Allergy Name Allergy Type Status Severity Reaction(s) Onset Date Inactive Date Treating Clinician Comments Source NO KNOWN ALLERGIE S Drug Class Active [facility] Social History Social Habit Start Date Stop Date Quantity Comments Source Gender identity [facility] Sexual orientation U [facility] History of tobacco use Passive smoker [facility] History of Social function 2022-11-27 00:00:00 2022-11-27 00:00:00 [facility] Tobacco Comment 2022-11-25 00:00:00 2022-11-25 00:00:00 Stopped smoking 9years ago [facility] Tobacco use and exposure 2022-11-25 00:00:00 2022-11-25 00:00:00 Smokeless tobacco non-user [facility] Sex Assigned At 1960 00:00:00 1960 00:00:00 [facility] Smoking Status Start Date Stop Date Source Ex-smoker 2022-11-25 00:00:00 2022-11-25 00:00:00 [facility] Medications Ordered Medication Name Filled Medication Name Start Date Stop Date Current Medication? Ordering Clinician Indication Dosage Frequency Signature (SIG) Comments Components Source albuterol 90 mcg/actuati on inhaler 11-27 15:25: 11-27 00:00 :00 No 2{puff} Inhale 2 Puffs. [facility] clonazePAM 0.5 mg tablet 11-27 15:25: 11-27 00:00 :00 No 1.5mg Take 3 tablets by mouth. [facility] FLUoxetine 40 mg capsule 11-27 15:25: 11-27 00:00 :00 No 40mg Take 1 capsule by mouth in the morning. [facility] clonazePAM (KLONOPIN) tablet 1 mg 11-27 02:00: 00 Yes 1mg 1 mg, Oral, QHS, First dose on Fri11/26/22 at 2100, Until Discontinu ed, Routine [facility] levETIRAcet am (KEPPRA) tablet 750 mg 11-27 01:00: 00 Yes 750mg 750 mg, Oral, BID, First dose on Fri11/26/22 at 2000, Until Discontinu ed, Routine [facility] levETIRAcet am 750 mg tablet 11-27 00:00: 00 Yes [id number] 750mg Take 1 tablet by mouth in the morning and 1 tablet in the evening. [facility] albuterol 90 mcg/actuati on inhaler 11-27 00:00: 00 Yes 2{puff} Inhale 2 Puffs. [facility] albuterol (VENTOLIN) inhaler 2 Puff 11-26 21:37: 38 Yes 2{puff} 2 Puff, Inhalation , Q6HPRN, Starting on Fri11/26/22 at 1637, Until Discontinu ed, Routine, Wheezing, Shortness of Breath [facility] gadobenate dimeglumine (MULTIHANCE -15 mL) injection 14.3 mL 11-26 17:45: 00 11-26 17:45 :00 No [id number] .2mL/kg 14.3 mL (0.2 mL/kg ?71.5 kg), Intravenou s, ONCE, 1 dose, On Fri11/26/22 at 1245, Routine [facility] enoxaparin (LOVENOX) injection 30 mg 11-26 16:15: 00 Yes 30mg 30 mg, Subcutaneo us, Q12H, First dose (after last modificati on) on Fri11/26/22 at 1115, Until Discontinu ed, Routine [facility] pantoprazol e (PROTONIX) injection 40 mg 11-26 14:00: 00 11-27 18:32 :59 No 40mg 40 mg, Slow IV Push, Q24H, First dose on Fri11/26/22 at 0900, Until Discontinu ed [facility] methocarbam oL (ROBAXIN) injection 1,000 mg 11-26 11:00: 00 11-26 18:27 :07 No 1000mg 1,000 mg, Intravenou s, Q8H, First dose on Fri11/26/22 at 0600, Until Discontinu ed, Routine [facility] levETIRAcet am (KEPPRA) in NACL (ISO-OS) 500 mg/100 mL RTU 11-26 11:00: 00 11-26 13:00 :55 No 500mg 500 mg, IV Piggyback, Q12H, First dose on Fri11/26/22 at 0600, Until Discontinu ed, Administer over 15 Minutes, 100 mL [facility] LORazepam (ATIVAN) injection 2 mg 11-26 00:45: 00 11-26 01:00 :00 No 2mg 2 mg, Slow IV Push, ONCE, 1 dose, On Fri11/25/22 at 2000, JESSICA [facility] iopamidol (ISOVUE 370-500 mL) injection 90 mL 11-26 00:30: 00 11-26 00:30 :00 No [id number] 90mL 90 mL, Intravenou s, ONCE, 1 dose, On Fri11/25/22 at 1930, Routine [facility] LORazepam (ATIVAN) injection 2 mg 11-26 00:15: 00 11-25 23:22 :00 No 2mg 2 mg, Slow IV Push, ONCE, 1 dose, On Fri11/25/22 at 1915, STAT [facility] LORazepam (ATIVAN) injection 2 mg 11-26 00:00: 00 11-25 23:03 :00 No 2mg 2 mg, Slow IV Push, ONCE, 1 dose, On Fri11/25/22 at 1900, Routine [facility] levETIRAcet am (KEPPRA) in NACL (ISO-OS) 1,000 mg/100 mL RTU 11-26 00:00: 00 11-25 23:19 :00 No 1000mg 1,000 mg, IV Piggyback, ONCE, 1 dose, On Fri11/25/22 at 1900, Administer over 15 Minutes, 100 mL [facility] lactated ringers IV infusion 1,000 mL 11-25 23:45: 00 11-26 18:27 :07 No 1000mL at 125 mL/hr, 1,000 mL, IV Infusion, CONTINUOUS , Starting on Fri11/25/22 at 1845, Until Fri11/26/22 at 1327, Routine [facility] levETIRAcet am (KEPPRA) 750 mg in NaCl 0.9% (NS) 100 mL IV infusion 11-25 23:38: 00 11-26 00:34 :00 No 750mg 750 mg, IV Piggyback, ONCE, 1 dose, On Fri11/25/22 at 1845, Administer over 15 Minutes, 100 mL [facility] oxazepam (SERAX) capsule 15 mg 11-25 23:33: 06 Yes 15mg 15 mg, Oral, Q4HPRN, Starting on Fri11/25/22 at 1833, Until Discontinu ed, Routine, Only while awake for DBP equal to or greater than 100, HR equal to or greater than 100. [facility] ondansetron (ZOFRAN (PF)) injection 4 mg 11-25 23:29: 34 Yes 4mg 4 mg, Slow IV Push, Q6HPRN, Starting on Fri11/25/22 at 1829, Until Discontinu ed, Routine, Nausea and Vomiting (N/V) [facility] acetaminoph en (TYLENOL) tablet 650 mg 11-25 23:29: 34 Yes 650mg 650 mg, Oral, Q6HPRN, Starting on Fri11/25/22 at 1829, Until Discontinu ed, Routine, Pain (scale 1-3) [facility] ondansetron (ZOFRAN (PF)) injection 4 mg 11-25 23:00: 00 11-25 22:52 :00 No 4mg 4 mg, Slow IV Push, ONCE, 1 dose, On Fri11/25/22 at 1800, JESSICA [facility] predniSONE 10 mg tablet 11-12 00:00: 00 11-27 00:00 :00 No 10mg Take 1 tablet by mouth in the morning. [facility] Vital Signs Vital Name Observation Time Observation Value Comments S ourjuan Systolic blood pressure 2022-11-27 17:27:00 105 mm[Hg] [facility] Diastolic blood pressure 2022-11-27 17:27:00 70 mm[Hg] [facility] Heart rate 2022-11-27 17:27:00 68 /min [facility] Body temperature 2022-11-27 17:27:00 36.56 Arabella [facility] Respiratory rate 2022-11-27 17:27:00 16 /min [facility] Oxygen saturation in Arterial blood by Pulse oximetry 2022-11-27 17:27:00 99 /min [facility] Body height 2022-11-26 01:34:00 162.6 cm [facility] Body weight 2022-11-26 01:34:00 71.5 kg [facility] BMI 2022-11-26 01:34:00 27.06 kg/m2 [facility] Procedures Procedure Date / Time Performed Performing Clinician Source VITAMIN B12, LEVEL 2022-11-27 09:37:00 Kim Shin [facility] FOLATE 2022-11-27 09:37:00 Kim Shin Jyotsna [facility] BASIC METABOLIC PANEL (NA, K , CL, CO2, GLUCOSE, BUN, CREATININE, CA) 2022-11-27 09:37:00 Bolivar Teresa [facility] CBC WITHOUT DIFF 2022-11-27 09:37:00 Bolivar Teresa [facility] MR BRAIN W WO CONTRAST WITH NEUROQUANT 2022-11-26 16:15:00 DominicOzzie mahoney [facility] PROLACTIN 2022-11-26 01:26:00 Michael Lopez [facility] URINE DRUG (IMMUNOASSAY) - COMPREHENSIVE DRUG SCREEN 2022-11-26 01:26:00 Ruby Valdez [facility] MRSA / MSSA SCREEN BY AKASH PATEL 2022-11-26 01:26:00 Angelica Nickerson [facility] ELECTROENCEPHALOGRAM 2022-11-26 00:00:00 Ruby Valdez [facility] CT TRAUMA THORAX W CONTRAST 2022-11-25 23:29:52 Michael Lopez [facility] CT TRAUMA THORACIC SPINE WO CONTRAST 2022-11-25 23:29:52 Michael Lopez [facility] CT TRAUMA ABDOMEN PELVIS W CONTRAST 2022-11-25 23:29:52 Michael Lopez [facility] CT TRAUMA LUMBAR SPINE WO CONTRAST 2022-11-25 23:29:52 Michael Lopez [facility] CT TRAUMA HEAD WO CONTRAST 2022-11-25 23:03:32 Michael Lopez [facility] CT TRAUMA CERVICAL SPINE WO CONTRAST 2022-11-25 23:03:32 Michael Lopez [facility] LIPASE 2022-11-25 22:43:00 Person, [facility] COMP. METABOLIC PANEL (05540) 2022-11-25 22:43:00 Person, [facility] ETHANOL 2022-11-25 22:43:00 Anderson Saeed [facility] CBC WITHOUT DIFF 2022-11-25 22:43:00 Person, [facility] PROTHROMBIN TIME / INR 2022-11-25 22:43:00 Person, [facility] ACTIVATED PARTIAL THRMPLAS DIEGO 2022-11-25 22:43:00 Person, [facility] HB ABO GROUPING 2022-11-25 22:43:00 Person, [facility] HOSPITAL ADMISSION 2022-11-25 05:01:00 Doctor Unassigned, Churdan [facility] Encounters Start Date/Time End Date/Time Encounter Type Admission Type Attending [facility] Care Department Encounter ID Source 2023-05-29 15:56:17 2023-05-29 15:56:17 Outpatient SFA SFA [id number] Felipe Dhaliwal Zane 2023-05-14 16:54:30 2023-05-14 16:54:30 Outpatient SFA SFA [id number] Felipe Dhaliwal Zane 2023-05-06 10:29:22 2023-05-06 10:29:22 Outpatient SFA SFA [id number] Felipe Dhaliwal Zane 2023-01-29 14:22:19 2023-01-29 14:22:19 Outpatient SFA SFA [id number] Felipe Dhaliwal Zane 2022-12-26 13:05:49 2022-12-26 13:05:49 Outpatient SFA SFA [id number] Felipe Degroot 2022-11-28 00:00:00 2022-11-28 00:00:00 Transition of Care Natalia Stevens [id number] [id number] 4.2.7.2.686 [id number] [facility] 2022-11-25 17:41:00 2022-11-27 21:20:00 Inpatient JUAN CARLOS [facility] STR [id number] [facility] 2022-11-25 17:41:00 2022-11-27 21:20:00 Hospital Encounter ChristopheAndersonZhannaJuan Carlos [facility] 1.2.840.114 350.1.13.10 4.2.7.2.686 [id number] [facility] 2022-07-30 11:31:31 2022-07-30 11:31:31 Outpatient [facility] [id number] Felipe Dhaliwal Zane 2022-06-28 13:13:24 2022-06-28 13:13:24 Outpatient [facility] [id number] Felipe Dhaliwal Zane Results Test Description Test Time Test Comments Results Result Co mments Source [facility]:12[facility]17* Test Item Value Reference Range Interpretation Comme nts NA (test code = 3088428541) 133 mmol/L 135-145 L K (test code = 2398641237) 5.0 mmol/L 3.5-5.0 CL (test code = 7242525371) 96 mmol/L 98-108 L CO2 TOTAL (test code = 3770004413) 22 mmol/L 23-31 L AGAP (test code = 1512310450) 15 2-16 BUN (test code = 1956950635) 7 mg/dL 7-23 GLUCOSE (test code = 3259351422) 122 mg/dL 70-110 H CREATININE (test code = 9511682268) 0.50 mg/dL 0.50-1.04 TOTAL BILI (test code = 9886043259) 0.6 mg/dL 0.1-1.1 CALCIUM (test code = 3444639504) 8.6 mg/dL 8.6-10.6 T PROTEIN (test code = 3034522524) 7.1 g/dL 6.3-8.2 ALBUMIN (test code = 8423407643) 4.8 g/dL 3.5-5.0 ALK PHOS (test code = 7580015830) 84 U/L 34-122 ALTv (test code = 1742-6) 44 U/L 5-35 H AST(SGOT) (test code = 8538769023) 47 U/L 13-40 H eGFR (test code = 8242250106) 124.6 mL/min/1.73m2 CHARO (test code = CHARO) [...] imaging tests). Lab Interpretation (test code = 58783-8) [facility] 23:12:17* Test Item Value Reference Range Interpretation Comme nts LIPASE (test code = 7883680013) 159 U/L 0-220 Lab Interpretation (test cod e = 00158-4) Normal [facility] Time / [id number] 23:06:36* Test Item Value Reference Range Interpretation Comme [facility] PROTIME PATIENT (test code = 5964-2) 11.2 See_Comment [Automated UserVoicea HALSCION] The system which generated this result transmitted reference range: 10.1 - 12.6 Seconds. The reference range was not used to interpret this result as normal/abnormal. INR (test code = 6301-6) 1.0 Normal INR <1.1; Warfarin Therapeutic range 2.0 to 3.0 or 2.5 to 3.5, depending upon the indications. Lab Interpretation (test code = 30538-4) Normal [facility] 23:06:36* Test Item Value Reference Range Interpretation Comme [facility] APTT Patient (test code = 3173-2) 31 See_Comment [Automated UserVoicea ge] The system which generated this result transmitted reference range: 26 - 36 Seconds. The reference range was not used to interpret this result as normal/abnormal. Lab Interpretation (test code = 31203-4) Normal [facility] Without [id number] 23:02:55* Test Item Value Reference Range Interpretation Comme [facility] WBC (test code = 6690-2) 11.53 See_Comment [...] result as normal/abnormal. MPV (test code = 21526-8) 10.0 fL 9.5-12.9 RDW-CV (test code = 788-0) 11.9 % 12.0-15.5 L RDW-SD (test code = 54799-7) 41.9 fL 39.0-49.9 NRBC x10^3 (test code = 1222752690) See_Comment [Automated UserVoicea ge] The system which generated this result transmitted reference range: 10*3/?L. The reference range was not used to interpret this result as normal/abnormal. NRBC/100 WBC (test code = 6106378727) 0.0 See_Comment [Automated UserVoicea ge] The system which generated this result transmitted reference range: 0.0 - 10.0 /100 WBCs. The reference range was not used to interpret this result as normal/abnormal. IPF % (test code = 2525020482) Lab Interpretation (test code = 27347-3) [facility] - The Type and Screen [...] POSITIVE IAT (test code = 1185) Negative [facility], [id number] 15:39:28SPECIMEN NUMBER: [id number] CULTURE, URINE SPECIMEN NUMBER: [id number] SPECIMEN COMMENT: URINE SOURCE: URINE REPORT STATUS: FINAL ISOLATE NUMBER 1: ORGANISM: 06/30/2022 >100,000 CFU/ML ENTEROCOCCUS SPECIES (GROUP D) IDENTIFICATION: 07/01/2022 ENTEROCOCCUS SPECIES (GROUP D) ENTEROCOCCUS SP. AMPICILLIN SENSITIVE <=2CIPROFLOXACIN INTERMED 2LEVOFLOXACIN SENSITIVE 2NITROFURANTOIN IN TERMED 64TETRACYCLINE SENSITIVE <=1VANCOMYCIN SENSITIVE 1 NOTE: NUMBERS DISPLAYED REPRESENT MINIMUM INHIBITORY CONCENTRATION (YOSEF) WHICH IS EXPRESSED IN MCG/ML. [facility] has important pathology staff changes effective 05/15/2022. New pathology staff will provide uninterrupted, excellent patient care and clinical consultation. See URL: [email or web address]. UNLESS OTHERWISE INDICATED, ALL TESTING PERFORMED AT [facility] [address] [place] [address] SAUSAGE WRAPPER: PATRICK ORTIZ M.D. CLIA NUMBER [id number] [facility] [place]. [id number] II PROFILE (TU,T4,FTI,TSH)2022-06-29 06:14:53* Test Item Value Reference Range Interpretation Comme nts T-UPTAKE (test code = 2817) 30.2 % 24.3-39.0 THYROX. BIND. CAPAC. (test c ode = 96108) 1.1 0.8-1.3 T4 (THYROXINE) (test code = 2819) 6.3 UG/DL 4.5-10.5 CORRECTED T4 (FTI) (test cod e = 2820) 5.7 UG/DL 4.2-11.6 TSH, THIRD GENERATION (test code = 2821) 1.130 UIU/ML 0.400-4.100 VITAMIN [id number] 06:14:53* Test Item Value Reference Range Interpretation Comme [facility] VITAMIN B-12 (test code = 2840) 530 PG/ML 200-950 VITAMIN D, 25 [id number] 05:57:16* Test Item Value Reference Range Interpretation Comme [facility] VITAMIN D, 25 OH (test code = [...] . . . . . NG/ML 30-100 [facility] has important pathology staff changes effective 05/15/2022. New pathology staff will provide uninterrupted, excellent patient care and clinical consultation. See URL: [email or web address]. UNLESS OTHERWISE INDICATED, ALL TESTING PERFORMED AT [facility] [address] [place] [address] SAUSAGE WRAPPER: PATRICK ORTIZ M.D. CLIA NUMBER [id number] [facility] [place]. [id number] COMPREHENSIVE METABOLIC [id number] 05:02:48* Test Item Value Reference Range Interpretation Comme nts GLUCOSE (test code = 2217) 144 MG/DL 70-99 H BUN (test code = 2208) 6 MG/DL 8-23 L CREATININE (test code = 2214) 0.74 MG/DL 0.60-1.30 eGFR (2020 CKD-EPI) (test code = 27050) 91 ML/MIN/1.73 >60 CALC BUN/CREAT (test code [...] = 2219) 58 U/L 5-40 H LIPID [id number] 05:02:48* Test Item Value Reference Range Interpretation Comme nts CHOLESTEROL (test code = 2210) 219 MG/DL <200 H TRIGLYCERIDES (test code = 2232) 101 MG/DL <150 HDL CHOLESTEROL (test code = 2220) 55 MG/DL >39 CALC LDL CHOL (test code = 2237) 143 MG/DL <100 H NOTE: CALCULATED LDL IS BASED ON LAMAR-SHARPE METHOD WHICHINCLUDES ADJUSTABLE TRIGLYCERIDE:VLDL CHOLESTEROL RATIO.THIS FACTOR VARIES BY MEASURED TRIGLYCERIDE AND NON-HDLCHOLESTEROL CONCENTRATIONS WITH INCREASED CALCULATED LDL SEENIN HIGHER TRIGLYCERIDE OR LOWER NON-HDL SPECIMENS. FOR MOREINFORMATION, SEE CLIENT ANNOUNCEMENT AT [email or web address] RISK RATIO LDL/HDL (test code = 2238) 2.60 RATIO <3.22 HEMOGLOBIN [id number] 04:06:39* Test Item Value Reference Range Interpretation Comme nts HEMOGLOBIN A1c (test code = 24994) 5.4 % 4.2-5.6 CBC W/AUTO DIFF WITH [id number] 01:56:03* Test Item Value Reference Range Interpretation [...] 0.00-0.10 ABS NUCLEATED RBCS (test code = 08681) 0.00 K/UL 0.00-0.11 Consult Notes Date/Time Note Provider Source 2022-11-25 19:49:00 /Ellyn/MCwGeXwZEjqk E1Ggh4D+xyOxf3kkp3TBtM NrTeqDqXoavgbyQ+CAJgf50429-75-94H41:49:00A ssociated Order(s): CONSULT NEUROLOGY GENERAL NEUROLOGY CONSULT [...] be seen in the morning.Neurology Consult Pager: [phone] MD CourtneyNeurology resident ssociated attestation - Guilherme [...] the resident. Guilherme Gonzalez M.D., Ph.D., FAAN, FORTUNATOAProfessor, Neurology 55745-7Koprlfb oqabKN0801341TgblGuilherme1.2.840.739812.1.13.104.2.7.2.713894U pjoIeqieLW1545-91-44K99:15:12Consult noteTXT1.2.840.209682.1.13.104.2.7.2.72992 9|[id number] for patient enrg72201-4Liwjkab noteLNUT[address] FchvZiufszttfMqdlcyorhKGBL5239103264DXXJPY XHBWWOXERBYPHMQG9555-45-80E69:15:121.2.840 .640938.1.72.3.15|1.2.840.146534.1.13.104. 2.7.2.727879_[id number] [facility] - Health History and Physical Notes Date/Time Note Provider Source 2022-11-25 18:58:33 IdzhpPn7CvVMkYB378LA C3NlLBTlowylccZvYWY Natasha+OPlNc4v67mK5wBmE32s5410-22-43Y18: 58:33 Images from the original note were not included.TRAUMA SURGERY HISTORY AND PHYSICALDate of Service: 11/25/22 ATTENDING PHYSICIAN: Doorteo complaint: HISTORY OF MECHANISM OF INJURYPatient was [...] 90 mL Intravenous ONCE 90 mL at 11/25/22 1930 lactated ringers IV infusion 1,000 mL 1,000 [...] file. COPD on home oxygen 3 L MS, evaluated for lung transplant previouslyRemote history of [...] malalignment. Preliminary Report Dictated by Resident: Azael Neil I, Umar S Og, MD., have reviewed this study and agree [...] in AM. -1L LR, maintenance fluids, thiamine IV.-Keppra CPT: 74103Upjkwiq MD ChristopheTrauma/Acute Care Surgery Mcjxlhd99564-6Tjpuqjm and physical mcuoDA1613430Mhaik, Francis1.2.840.184275.1.13.104.2.7.2.83 7846XaasgIbbcftaGP8681-84-16B71:45:42Hi story and physical noteTXT1.2.840.452801.1.13.104.2.7.2.72 7879|[id number] for patient iqqc33379-7Ehnppnb and physical cggeAAKWQ-YPESTCFDCH-DQWKMLZMLXZNXGK - [address] UfddFwtbfmjheIalwezxybXZGA2074180790TDB KLDOSXRTYFNBIBMOJJE3962-62-18R35:45:421 .2.840.633174.1.72.3.15|1.2.840.719333. 1.13.104.2.7.2.727879_[id number] JIMENA-SURGERY [facility] Notes Date/Time Note Provider Source 2022-11-28 16:12:17 /k6Fp74uuOFIc++HiTpv 2vwmKG5ZfvFU khrkruPZG5InEMVr5KzY4EVZ1BSs2nwJ 7030-93-80Z01:12:17 TRANSITIONAL CARE MANAGEMENT ASSESSMENT11/28/2022 Denise OakleyQzsvtt577543UDivxl Joann Oakley is a 61 year old /White female was admitted on 11/25/[address] She was discharged on 11/27/22 with discharge disposition of HR- Routine Discharge.Admitting Physician: Brodie Alford Diagnosis: Trauma Linked Episodes Type: Episode: Status: Noted: Resolved: Last update: Updated by: TRANSITION OF CARE TCM Active 11/27/2022 11/28/2022 4:10 PM Natalia Stevens, RN Comments: TCM Tyo-tvoq-qv-face outreach documentation:Discharge AssessmentChart Assessed: 11/28/22TCM Outreach Completed: 11/28/22Do you have a few minutes to speak with me about how you are doing at home?: Yes (pt reports she is doing ok and denies having any questions/concerns at this time.)Discharge InstructionsDo you understand your at-home instructions?: YesMedicationsHave you filled your prescriptions and do you have them in your home? 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)Do you know how to take your medications?: YesCan you provide me with the names or descriptions of any knvv-qcn-mrepjhh or supplements you are currently taking?: YesSuppliesDid you receive applicable home medical supplies/equipment?: N/AFollow Up AppointmentHas a follow up appointment been scheduled?: NoMay I assist with scheduling this appointment?: Patient has outside PCPDo you have any questions about your follow up appointments?: [facility] AssistanceHas the home health nurse contacted you since you've been home?: N/ASurvey - RecognitionIs there anything you would like to share about your recent hospitalization, or anyone you would like to recognize?: NoDo you have any suggestions for improvement?: NoDo you have any other questions or concerns at this time?: NoFuture Appointments: 34488-3Pbyriqloq encounter HuenYN8911-50-40J93:12:53Telepho ne encounter NoteTXT1.2.840.510947.1.13.104.2 .7.2.552938|[id number] e for patient eryj28237-0IuobDP537593985Xpwqid L Deborde RN[address] LipyMushkvpvuZldbngkigAIGS413574 4779DXEGSISWFNKHEAHZJOMELN4446-4 9-14T16:12:531.2.840.530015.1.72 .3.15|1.2.840.439462.1.13.104.2. 7.2.727879_[id number] Natalia Stevens RN [facility] 2022-11-27 00:00:24 IdIwIYy42LperD085JfC QtNH7/OFQyEQ WO4Mn6hYFk/z+jnhK1HX3Fvb3FR8lIW9 0626-49-30F56:00:24 Problem: Seizures, Risk of / or ActualGoal: [...] Adequate work of breathingOutcome: Progressing as expected 48835-3Rxdd of care oliwHB3365-36-25K07:00:29Plan of care noteTXT1.2.840.246114.1.13.104.2 .7.2.328611|[id number] e for patient mjks16835-2IwbmTL167583383Vsnjxw k Smith-Ellis RNUT[address] JjwaNzxnbgcffNglatwjzgEFOS881092 1890AMYVFGXBXSVDRIRZVBWEUC0313-0 11-27T00:00:291.2.840.098149.1.72 .3.15|1.2.840.447102.1.13.104.2. 7.2.727879_[id number] Mayco Abdalla RN [facility] 2022-11-26 08:39:55 zXfgdu0bfrpXR/Wh+3BE Bv03/QsY6ceD A65qXg2HgXkWACTPgGs45knh2ZAkjbg7 9118-88-71H22:39:55 Problem: Seizures, Risk of / or ActualGoal: [...] Adequate work of breathingOutcome: Progressing as expected 61129-2Wqmb of care uwtsMI0826-43-59E11:40:00Plan of care noteTXT1.2.840.543137.1.13.104.2 .7.2.272420|[id number] e for patient [id number] ramay Stauffer RN[address] [id number] 1644SQNSDFZMJPGAIIPBDYOLDS3684-7 11-26T08:40:001.2.840.737184.1.72 .3.15|1.2.840.174645.1.13.104.2. [id number] Glnedy Stauffer RN [facility] 2022-11-26 01:44:18 rnExJxtR8vYKcJFyiW7E tN3dISc23Yb0 Xupt8sUxg2lMTaSXvjwDXb8favczeF/5 8559-09-30D70:44:18 Problem: Seizures, Risk of / or ActualGoal: [...] Adequate work of breathingOutcome: Progressing as expected 21626-7Bwen of care tcsvSD7579-48-00F14:44:28Plan of care noteTXT1.2.840.090275.1.13.104.2 .7.2.265100|[id number] e for patient zerw93100-9UrgeCJLSIWHFJC[address] ZgwmAljvluzolBkypuheurKQWJ319758 3847VEXZZNPIWXVQVKGGRHQDME1242-1 11-26T01:44:281.2.840.593925.1.72 .3.15|1.2.840.109061.1.13.104.2. 7.2.727879_[id number] [facility] 2022-11-25 19:59:06 BV6mvlWJKMSE2aYuBWLi LouhbfJldAo2 jwCFA0cY92ZA+1pdSqStZvatAPz8hRCp 0940-33-53H29:59:06 Patient transported to [facility] with ED RNx2 and trauma team for continuous monitoring. Patient remains on BP, O2, vehicle monitor technician during transport. Zoll monitor and ambu bag present on ED stretcher. Patient in kassandra collar, breathing even/unlabored, in NAD. Patient stable for transport at this time. 45142-2Ryuswbqno department JempUA8312-04-23L99:59:41[facility] NoteTXT1.2.840.064301.1.13.104.2 .7.2.505897|[id number] e for patient qejo23740-3AsgbQV955126836Zrhmg E Mills RN[address] 6118QMIQTHUDLUKUUOKZIDZTXU5564-5 9:59:411.2.840.473156.1.72 .3.15|1.2.840.701185.1.13.104.2. 7.2.727879_[id number] Tiffanie Mason RN [facility] 2022-11-25 19:50:21 W++whOnLUR+LK8M4ebly kOhjeuFwjRA3 0GgsQXxUJtTYJ0hZCMltjcyR+IIHYQrv 5430-34-33W56:50:21 Patient noted to be having seizure at this time. x 2 at bedside. 2mg ativan given per verbal order at this time. Patient to be transported to ICU at this time. 09720-9Ibiaviodt department KejpFZ9418-78-70T52:50:53[facility] NoteTXT1.2.840.278554.1.13.104.2 .7.2.327145|[id number] e for patient xnjz10738-4GlmwNH412840265Gywwak L Payne RN[address] 6771MYGPDYCWASSSVUZNYQJGQV1278-1 9-11T19:50:531.2.840.041176.1.72 .3.15|1.2.840.572327.1.13.104.2. 7.2.727879_[id number] Cherie Robbins RN [facility] 2022-11-25 19:34:31 ur0JZS2KyC//t9/uvmoO FHPj7xrsS3as kCpy9fPo3pVUQKqgYEGVQG8cb5tF4MIa 8414-86-28D51:34:31 Report called to Hima RN. Plan of care reviewed, all questions answered. Patient updated on plan of care. Transport requested via tele track. 60628-5Xrhzvhlso department YbtdTS9070-31-38S79:34:50[facility] department NoteTXT1.2.840.950839.1.13.104.2 .7.2.418094|[id number] e for patient whhe41408-7AtqmNFDKXQMOHX[address] JvgeLsisqedcfLdqvhxyjmHVIB143655 0531CIGDIDGOCLPYNXJSSLSOID0831-3 9:34:501.2.840.005915.1.72 .3.15|1.2.840.951749.1.13.104.2. 7.2.727879_[id number] [facility] 2022-11-25 19:00:00 0ipRCM12bKYrzamF7prq v1vwDTzxK41c e9nMCrI2JxIIRBkHDUIQHmP/X2Gxa6Yw 1424-78-07W40:00:00 Report received from Zahra POON and Ailyn POON.Patient resting in stretcher with kassandra collar in place, on NRB, GCS 12, oriented to self, eyes open to verbal, RR E/U.Trauma team at bedside.Will call report 73029-4Lzbjgiuev department CjtpDY2348-48-13F19:29:13[facility] NoteTXT1.2.840.458046.1.13.104.2 .7.2.837445|[id number] e for patient oihf14817-2ByggWHLZLMDAGZ[address] 8497WJLNUXKMZVVOGLYJGHFBSF6028-8 9:29:131.2.840.743282.1.72 .3.15|1.2.840.716288.1.13.104.2. 7.2.727879_[id number] [facility] 2022-11-25 18:56:13 ZdVIfWy9r3D4qShNw8Uc MOGkTAUgyG0b 9/MHlvdyZvNKQ0BxylMlIwgKq+9+Vjw1 2692-30-02F40:56:13 Attempted to call 8A for report, dayshift RN refusing report at this time as they are still in shift change. Will try again. 52509-7Vwtckotbz department YczbZR9829-72-23W37:56:43[facility] NoteTXT1.2.840.845336.1.13.104.2 .7.2.089542|[id number] e for patient mpab76282-0EvpfOCMPDFSTWY[address]vd[address] 2696HYQPGBZLEQZCMJVTTGABBC9109-2 9-11T18:56:431.2.840.498300.1.72 .3.15|1.2.840.778669.1.13.104.2. 7.2.727879_[id number] [facility] 2022-11-25 18:40:54 fWl0Wq7nhiSVAPTgWO4/ 5hRdtrM8yRtk sgu/eMcwihT4Z7EQYDaFnm6IsV4gX/2A 3891-43-72W68:40:54 Neuro bedside. 48047-5Folyewyyx department YzpvEJ3572-79-69W11:41:03[facility] NoteTXT1.2.840.720118.1.13.104.2 .7.2.647685|[id number] e for patient uglz63891-6IrgzFLNOHDHCLR[address] [place], [place] [address] 1770SMZTKNECRDGEVDSJAGHWTL7436-6 8:41:031.2.840.045705.1.72 .3.15|1.2.840.063746.1.13.104.2. 7.2.727879_[id number] [facility] 2022-11-25 18:22:00 lVZ9Xc50H6HYLIcHg+2c 2AdQSTnY+9wm Sy8kvAYjjNrLPRMPL51PZsn30qUULKge 5309-11-47D70:22:00 Pt witnessed with seizure like acitivity in CT, pt given 2mg ativan and pt rolled and brought back to room 105 on 15L NRB. 98905-9Osnhgutwc department CyosVE5054-60-41D65:40:51[facility] NoteTXT1.2.840.443447.1.13.104.2 .7.2.283548|[id number] e for patient fcrk69320-4IajzQGFPMNESZD[address] 9317TFBNNBQHCMOWUHYMPPBBVX2378-5 8:40:511.2.840.466191.1.72 .3.15|1.2.840.076423.1.13.104.2. 7.2.727879_[id number] [facility] 2022-11-25 18:10:36 tQJFsr2lat6xKyhfNxFM BtfG0sFKAnO6 0a7wRvjiNqHRWwSfc9AWZ28OAbpWQ2zu 6939-03-53L85:10:[address] via stretcher with c-collar in place on 15L NRB 45271-1Qgoaipzwa department PtsrKH2122-32-79R69:11:07[facility] department NoteTXT1.2.840.012836.1.13.104.2 .7.2.423316|[id number] e for patient qynz76447-4BuwxZECQHYTXXQ[address] UkguDhvsivuaxJpckujghrTDAI811443 1813EXCVTSZDDBRYJTXTQCSUAW4025-4 :11:071.2.840.639613.1.72 .3.15|1.2.840.199311.1.13.104.2. 7.2.727879_[id number] [facility] 2022-11-25 18:03:59 YHcssxmlDbdKYzYWkZ3N TkFf7/n0qSWH j4Ndqhbbxwbrs6V+aKr/x4TNY5IShq5+ 2311-60-06N18:03:59 Pt has returned to room [address] Dr[address] Shin bedside 64656-8Guqclgumi department GcyiEL6031-12-23H67:04:29[facility] NoteTXT1.2.840.333691.1.13.104.2 .7.2.587285|[id number] e for patient hbhs85682-0NcxhGIUOWITYXR26 [address] 2464LKZMBGCVJVEGRZDUSKSXSX4030-0 8:04:291.2.840.208156.1.72 .3.15|1.2.840.731814.1.13.104.2. 7.2.727879_[id number] [facility] 2022-11-25 18:02:00 nHNBRgZiSQPovZY5ZJ/C hg9WM3NG70+2 V4NQvlI1dlGF2OBVDPnB/6QzdDF6SD7T 5297-95-09L96:02:[address] stopped, pt rolled onto side and 2mg ativan given per verbal order 11669-8Nexlhdexj department RwwzCY9453-59-52A57:07:31[facility] department NoteTXT1.2.840.595801.1.13.104.2 .7.2.753087|[id number] e for patient cozz60863-6DzazAIYIWKLMFO[address] 5916YFDMFWFQGBHDMUPJNOYQIL8041-2 8:07:311.2.840.702387.1.72 .3.15|1.2.840.535212.1.13.104.2. 7.2.727879_[id number] [facility] 2022-11-25 17:56:43 z4BC6YFNtJC2t+q4H7vV LHeb0hkVcOp+ DG/VBb7hQW9bZ1jdYKXH4Up9AEZ4a8PZ 1174-73-33U71:56:43 Dr. Arauz states to hold LR bolus due to CHF 38335-8Xuqxtpllc department UqyuBT5433-34-90K66:56:57[facility] department NoteTXT1.2.840.152241.1.13.104.2 .7.2.157028|[id number] e for patient cbra80210-6KbkmYEIRNZOWXT[address] [place], [place] [address] 0413UZBSIYJBEUHAKVOVNQEWOS1068-5 9-11T17:56:571.2.840.394202.1.72 .3.15|1.2.840.784636.1.13.104.2. 7.2.727879_[id number] [facility] 2022-11-25 17:51:00 UBGYvGU5M89dqtc+wGlc k3+DNHiKVu9d kSEHrN1VIpVlc5P+DpaFkDVW2k+oIe9G 5653-74-83V51:51:[address], 4mg zofran IV verbal order per Dr. Arauz given. 24607-7Ffzslbeiv department QldwZE8547-38-20W25:54:45[facility] NoteTXT1.2.840.575507.1.13.104.2 .7.2.754969|[id number] e for patient kppi83207-2MskoWGQPKAJRWS[address] 8339AHUAEAOJRUUBATAGXFVJJZ1641-5 9-11T17:54:451.2.840.422420.1.72 .3.15|1.2.840.582886.1.13.104.2. 7.2.727879_[id number] [facility] 2022-11-25 17:48:00 Fy7bPAQusYNBRTBT+VxS fdPVZbnIQ0IQ SxJaJpm7g8t2+p35nqIzAuXqa0C7abHX 5177-01-33M31:48:[address] via stretcher on bedside monitor with c-collar. Back board removed in CT by trauma doctor 79668-1Tuuoovfmx department PyqpOK7831-25-29E01:53:03[facility] NoteTXT1.2.840.335023.1.13.104.2 .7.2.642754|[id number] e for patient qhpj69935-5LtkrZRPWNRMLBX[address] IzksCylttaanvFftvedohrGHHU182160 9508JQRLVEZGJRFJWYLVIPULYZ2075-0 :53:031.2.840.516672.1.72 .3.15|1.2.840.333891.1.13.104.2. 7.2.727879_[id number] [facility] 2022-11-25 17:45:00 LOZpKOjGbOu79arYzklj YUQjPAevxPUC jdyy5T8VF8HwhqKUoCNS1GNs0lwUnIW4 5851-88-37N59:45:00 Denise Oakley is a 61 year old [...] NC, to room 105 for trauma eval. 85570-9Ffslyfaqi department JrrmZR7729-03-60J59:09:57[facility] NoteTXT1.2.840.319052.1.13.104.2 .7.2.144934|[id number] e for patient yrvo82397-8YumkGAMOGVADIA[address] 3920PSONPEGHIZLIHKJRNCTSGN9287-0 9-11T18:09:571.2.840.600080.1.72 .3.15|1.2.840.523289.1.13.104.2. 7.2.727879_[id number] [facility] 2022-11-25 17:43:28 hiwzxmBL14zCu37WHUSX kFCwX8fvtvRr xVBSbN5w6m58yFVT/2KP3rORJGzbjHyc 1346-80-86E74:43:[address] Kan 32336-9Ttkfwqjnj department MaygFV7418-87-55F06:43:46[facility] NoteTXT1.2.840.560240.1.13.104.2 .7.2.298463|[id number] e for patient erpk83103-0BcfrBSEWOFFNFI[address] 3250SWBRJGTYFFLGTSILNIHNFR1478-0 9-11T17:43:461.2.840.693452.1.72 .3.15|1.2.840.577492.1.13.104.2. 7.2.727879_[id number] [facility]
[2023-07-17 13:56] LABS: Absolute Basophils 0.1 K/uL (0-0.5); Absolute Eosinophils 0.8 K/uL (0-0.5); Absolute Lymphocytes (CBC) 2.1 K/uL (0.7-4.9); Absolute Monocytes 0.7 K/uL (0.1-1.3); Absolute Neutrophil 8.7 K/uL (1.8-8.0); Basophils % 0.7 % (0-1.3); Eosinophils % 6.6 % (0-4.4); Hematocrit 46.5 % (36.0-45.0); Hemoglobin 15.3 g/dL (12.0-15.0); Lymphocytes % 17.1 % (15.3-44.8); MCH 32.6 pg (27.0-35.0); MCHC 32.9 g/dL (32.0-36.0); MPV 8.4 fL (7.6-11.3); Monocytes % 5.4 % (3.3-12.3); Neutrophils % 70.2 % (41.7-73.7); Nucleated Red Blood Cells % 0.1 % (0-0); Platelets 258 thou/uL (152-406); Red Cell Distribution Width 12.4 % (12.1-15.2)
[2023-07-17] MEDS ORDERED: NA CHLORIDE 0.9% 1,000 ML ONE (13:57)
[2023-07-17] MEDS ORDERED: ALBUTEROL 2.5 MG/3 ML NEB SOL ONE (13:57)
[2023-07-17 14:04] LABS: PT Prothrombin Time 11.5 SECONDS (9.5-12.5); PTT, Activated Partial Thromb 26.6 SECONDS (24.3-36.9); Protime INR 1.05
[2023-07-17 14:13] LABS: Albumin 3.8 g/dL (3.4-5.0); Albumin/Globulin Ratio 1.3 (1.1-1.8); Anion Gap 5.6 mEq/L (5.0-15.0); Bilirubin Total 0.4 mg/dL (0.2-1.0); Potassium 3.6 mEq/L (3.5-5.1); Protein, Total 6.8 g/dL (6.4-8.2)
[2023-07-17 14:30] LABS: Blood Gas Oxyhemoglobin 94.2 % (94-97); Blood Gas THB 15.6 g/dl (12-18); Blood O2 Saturation 96.6 % (92-98.5)
--- NOTE | 2023-07-17 14:55 | RAD REPORT ---
EXAM DESCRIPTION: RAD - Chest Single View - 07/17/2023 2:40 pm CLINICAL HISTORY: COUGH Chest pain. COMPARISON: Chest Single View dated 07/23/2022; Chest Single View dated 07/21/2022; Chest Single View da howard 07/19/2022 FINDINGS: Portable technique limits examination quality. Mildly opacities in both lung bases probably represents atelectasis. Trace bilateral pleural effusion s. The heart is upper limit normal in size. No displaced fractures.
[2023-07-17] MEDS ORDERED: Levofloxacin 750mg IV 750 MG/150 ML BAG IV ONE (15:11)
[2023-07-17 15:50] LABS: Specific Gravity 1.009 (1.005-1.030); Sqamous Epithelial None Seen /HPF (None Seen); Urine Bacteria None Seen /HPF (<20); Urine Bilirubin NEGATIVE (Negative); Urine Blood Negative (Negative); Urine Clarity Turbid (Clear); Urine Color Light-Yellow (Yellow); Urine Culture Reflex Order REFLEXED; Urine Glucose NEGATIVE (Negative); Urine Ketones NEGATIVE (Negative); Urine Microscopic Reflex YN ORDER UMIC; Urine Mucus Slight /HPF (None Seen); Urine Nitrite NEGATIVE (Negative); Urine Protein NEGATIVE (Negative); Urine RBC <5 /HPF (None Seen); Urine Urobilinogen Normal (Normal)
--- NOTE | 2023-07-17 16:08 | ER ---
Nurse's Notes [facility] Name: Denise Alejandra Age: 62 yrs Sex: Female : 1960 Arrival Date: 07/17/2023 Time: 13:17 Bed 4 Private MD: Diagnosis: COPD/ Chronic obstructive pulmonary disease with (acute) exacerbation;Acute and chronic respiratory failure with hypoxia Presentation: 07/16 13:22 Chief complaint: EMS states: pt has been sick x1 mo. has being seeing Dr. Holcomb and kc6 he has been giving her meds. pt was 64% on RA for EMS with HR in 120's. Coronavirus screen: At this time, the client does not indicate any symptoms associated with coronavirus-19. Ebola Screen: No symptoms or risks identified at this time. Initial Sepsis Screen: Does the patient meet any 2 criteria? RR > 20 per min. HR > 90 bpm. Does the patient have a suspected source of infection? No. Patient's initial sepsis screen is negative. Risk Assessment: Do you want to hurt yourself or someone else? Patient reports no desire to harm self or others. Onset of symptoms was July 17, 2023. 13:22 Method Of Arrival: EMS: [facility] 13:22 Acuity: JONI 2 kc6 Triage Assessment: 15:45 Respiratory: Onset: The symptoms/episode began/occurred 1 month, the patient has tl4 moderate shortness of breath. 15:46 General: Appears uncomfortable, ill. Respiratory: Reports shortness of breath cough tl4 that is pain with cough. Historical: - Allergies: 13:24 PENICILLINS; kc6 13:24 Sulfa (Sulfonamide Antibiotics); kc6 13:24 Codeine; kc6 - PMHx: 13:24 COPD; Home O2 via NC (COPD); Anxiety; kc6 - PSHx: 13:24 section; kc6 - Immunization history:: Adult Immunizations up to date. - Infectious Disease History:: Denies. - Social history:: Smoking status: Patient denies any tobacco usage or history of. Screenin:24 [facility] ED Fall Risk Assessment (Adult) History of falling in the last 3 months, kc6 including since admission No falls in past 3 months (0 pts) Confusion or Disorientation No (0 pts) Intoxicated or Sedated No (0 pts) Impaired Gait No (0 pts) Mobility Assist Device Used No (0 pt) Altered Elimination No (0 pt) Score/Fall Risk Level 0 - 2 = Low Risk. Abuse screen: Denies threats or abuse. Denies injuries from another. Nutritional screening: No deficits noted. Tuberculosis screening: No symptoms or risk factors identified. Assessment: 13:53 General: Appears ill, Behavior is cooperative. Pain: Complains of pain in generalized. tl4 Neuro: Level of Consciousness is awake, alert, obeys commands, Oriented to person, place, time, situation, Moves all extremities. Full function Speech is normal, Facial symmetry appears normal. Cardiovascular: Denies Capillary refill < 3 seconds Patient's skin is warm and dry. Rhythm is sinus rhythm. Respiratory: Reports shortness of breath cough that is pain with cough Airway is patent Respiratory effort is even, unlabored, Respiratory pattern is regular, symmetrical, Breath sounds are coarse bilaterally. GI: Reports diarrhea. : No signs and/or symptoms were reported regarding the genitourinary system. EENT: No signs and/or symptoms were reported regarding the EENT system. Derm: No signs and/or symptoms reported regarding the dermatologic system. Musculoskeletal: No signs and/or symptoms reported regarding the musculoskeletal system. 14:37 Reassessment: Patient and/or family updated on plan of care and expected duration. Pain tl4 level reassessed. Albuterol treatment complete. Pt states she feels slightly better. Pt denies any needs at this time. Pt updated on status of evaluation. 15:47 Reassessment: Patient and/or family updated on plan of care and expected duration. Pain tl4 level reassessed. Pt is having prolonged, non-productive coughing episodes. Pt is very uncomfortable and c/o CP associated with coughing. MD Garcia aware. 16:51 Reassessment: Patient and/or family updated on plan of care and expected duration. Pain tl4 level reassessed. Patient is alert, oriented x 3, equal unlabored respirations, skin warm/dry/pink. Pt c/o ongoing cough. Pt denies any needs at this time. Will continue to monitor. 17:42 Reassessment: Patient and/or family updated on plan of care and expected duration. Pain tl4 level reassessed. Patient is alert, oriented x 3, equal unlabored respirations, skin warm/dry/pink. Pt updated on admission status, waiting for transport to the floor. Pt denies any needs at this time. Vital Signs: 13:22 BP 161 / 85; Pulse 116; Resp 28 S; Temp 98.2(O); Pulse Ox 94% on 5 lpm NC; Weight 68.04 kc6 kg (R); Height 5 ft. 4 in. (R); 13:30 BP 170 / 81; Pulse 85; Resp 17; Pulse Ox 98% on 3 lpm NC; Pain 6/10; tl4 13:45 BP 164 / 80; Pulse 85; Resp 15; Pulse Ox 99% on 3 lpm NC; tl4 14:00 BP 121 / 82; Pulse 92; Resp 14; Pulse Ox 100% on 3 lpm NC; Pain 6/10; tl4 14:30 BP 130 / 79; Pulse 104; Resp 25; Pulse Ox 100% on 2 lpm NC; tl4 15:00 BP 120 / 54; Pulse 95; Resp 24; Pulse Ox 97% on 2 lpm NC; Pain 4/10; tl4 15:30 BP 136 / 77; Pulse 107; Resp 24; Pulse Ox 99% on 2 lpm NC; Pain 6/10; tl4 16:00 BP 110 / 53; Pulse 97; Resp 18; Pulse Ox 97% on 2 lpm NC; tl4 16:30 BP 121 / 64; Pulse 103; Resp 18; Pulse Ox 95% on 2 lpm NC; Pain 6/10; tl4 17:00 BP 105 / 70; Pulse 92; Resp 18; Temp 98.1(O); Pulse Ox 98% on 2 lpm NC; tl4 17:30 BP 143 / 76; Pulse 105; Resp 26; Pulse Ox 95% on 2 lpm NC; tl4 13:22 Body Mass Index 25.75 (68.04 kg, 162.56 cm) kc6 13:30 Pain Scale: Adult tl4 14:00 Pain Scale: Adult tl4 15:00 Pain Scale: Adult tl4 15:30 Pain Scale: Adult tl4 16:30 Pain Scale: Adult tl4 ED Course: 13:22 Patient arrived in ED. kc6 13:24 Triage completed. kc6 13:24 Arm band placed on. kc6 13:24 Patient has correct armband on for positive identification. Bed in low position. Call kc6 light in reach. Side rails up X2. Client placed on continuous cardiac and pulse oximetry monitoring. NIBP monitoring applied. pvc monitor on. Warm blanket given. Pillow given. 13:26 Glendy Lopez MD is Attending Physician. sd2 13:30 Report given to CLEVE Muhammad. kc6 13:41 Initial lab(s) drawn, by me, sent to lab. First set of blood cultures drawn EKG done, tl4 by ED staff, reviewed by Glendy Lopez MD. Oxygen administration via nasal cannula \T\ 3L/min. 13:52 Blood Culture Adult (2) Sent. tl4 13:52 CBC with Diff Sent. tl4 13:52 CMP Sent. tl4 13:52 Lactate w/ 2H reflex if indic. Sent. tl4 13:52 Protime (+inr) Sent. tl4 13:52 Ptt, Activated Sent. tl4 13:53 No provider procedures requiring assistance completed. Inserted saline lock: 20 gauge tl4 in right antecubital area, using aseptic technique. Blood collected. 14:06 Initial Neb Treatment Given as ordered Patient was instructed and evaluated on tl4 procedure Patient tolerated procedure well without adverse effect. 14:07 Placed in gown. Provided Education on: ED process. Door closed. Noise minimized. Lights tl4 dimmed. Pillow given. Diet: Patient given ice chips. 14:42 Chest Single View XRAY In Process Unspecified. EDMS 14:47 Jb Pulido, RN is Primary Nurse. tl4 15:12 Blood Culture Adult (2) Sent. tl4 15:44 Urinalysis w/ reflexes Sent. tl4 15:44 Urine collected: straight cath specimen, clear, Amount Returned: 220mL. Straight cath tl4 inserted, using sterile technique, 14 Fr. Specimen obtained. Patient tolerated well. 16:06 Tasia Rosa MD is Hospitalizing Provider. sd2 16:13 BNP Sent. mb9 16:14 Repeat lab(s) drawn. by me, sent to lab. jg11 16:53 Patient admitted, IV remains in place. tl4 Administered Medications: 14:05 Drug: NS 0.9% IV 1000 ml IV at 1 bolus Per protocol; 1000 mL bolus Route: IV; Rate: 1 tl4 bolus; Site: right antecubital; Delivery: Primary tubing; 14:06 Drug: Albuterol Inhalation 10 mg Inhalation once {Note: via nebulizer set up with face tl4 mask, oxygen at 10 lpm.} Route: Inhalation; 14:36 Follow up: Response: No adverse reaction tl4 15:19 Drug: levofloxacin IVPB 750 mg 150 ml IVPB once over 90 mins {Note: via IV pump.} tl4 Volume: 150 ml; Route: IVPB; Infused Over: 90 mins; Site: right antecubital; Delivery: Primary tubing; 16:50 Follow up: IV Status: Completed infusion; IV Intake: 150ml tl4 16:51 Follow up: Response: No adverse reaction tl4 16:13 Drug: MethylPrednisoLONE IVP 125 mg IVP once Route: IVP; Site: right antecubital; mb9 16:50 Follow up: Response: No adverse reaction tl4 Medication: 13:56 VIS not applicable for this client. tl4 Intake: 16:50 IV: 150ml; Total: 150ml. tl4 Outcome: 16:07 Decision to Hospitalize by Provider. sd2 18:16 Admitted to Tele accompanied by tech, via stretcher, room 404, with oxygen, mb9 18:16 Condition: stable 18:16 Instructed on the need for admit, 18:16 Patient left the ED. mb9 Signatures: Dispatcher [employer] EDGlendy Barclay MD MD sd2 Eulalia Hoover, RN RN [email or web address] Frida Schmidt RN RN mb9 Jb Pulido RN RN tl4 Brendon Hester jg11 Corrections: (The following items were deleted from the chart) 14:09 13:41 Oxygen administration via nasal cannula \T\ 5L/min tl4 tl4 14:11 13:30 BP 170 / 81; Pulse 85bpm; Resp 17bpm; Pulse Ox 98% 3 lpm Nasal Cannula; tl4 tl4 15:20 14:39 BP 130 / 79; Pulse 104bpm; Resp 25bpm; Pulse Ox 100% 2 lpm Nasal Cannula; tl4 tl4
--- NOTE | 2023-07-17 16:08 | EDPHYS ---
Physician Documentation [facility] Name: Denise Alejandra Age: 62 yrs Sex: Female : 1960 Arrival Date: 07/17/2023 Time: 13:17 Bed 4 Private MD: ED Physician Glendy Lopez HPI: 07/16 13:51 This 62 yrs old Female presents to ER via EMS with complaints of Breathing Difficulty. sd2 13:51 62 yo F presents via EMS with CC of SOB. Reports feeling sick for the past month with sd2 no improvement with home nebulizer treatments, steroids or antibiotics. She has been seeing Dr. Vázquez and has a hx of COPD. Denies any associated fevers. States had both flu A and B back in February and never fully recovered. EMS reports O2 sats of 64% on RA on their arrival improved after nebulizer treatment was given. Pt currently on 5L saturating at 94%.. Historical: - Allergies: 13:24 PENICILLINS; kc6 13:24 Sulfa (Sulfonamide Antibiotics); kc6 13:24 Codeine; kc6 - PMHx: 13:24 COPD; Home O2 via NC (COPD); Anxiety; kc6 - PSHx: 13:24 section; kc6 - Immunization history:: Adult Immunizations up to date. - Infectious Disease History:: Denies. - Social history:: Smoking status: Patient denies any tobacco usage or history of. ROS: 13:51 Constitutional: Negative for fever, chills, and weight loss, Eyes: Negative for injury, sd2 pain, redness, and discharge, Cardiovascular: Negative for chest pain, palpitations, and edema, Respiratory: Positive for shortness of breath, cough, wheezing. Abdomen/GI: Negative for abdominal pain, nausea, vomiting, diarrhea. MS/Extremity: Negative for injury and deformity, Skin: Negative for injury, rash, and discoloration, Neuro: Negative for headache, numbness and tingling. Exam: 13:51 Constitutional: This is a well developed, well nourished patient who is awake, alert, sd2 and in mild distress Head/Face: Normocephalic, atraumatic. Eyes: EOMI, normal conjunctiva bilaterally Chest/axilla: Normal chest wall appearance and motion. Nontender with no deformity. Cardiovascular: Tachycardic rate and regular rhythm with a normal S1 and S2. No gallops, murmurs, or rubs. 2+ distal pulses. Respiratory: Expiratory wheezes noted in all lung sawyer with subcostal retractions and increased work of breathing, rales also noted to bilateral bases with coarse cough Abdomen/GI: Soft, non-tender, with normal bowel sounds. No guarding or rebound. No evidence of tenderness throughout. Skin: Warm, dry with normal turgor. Normal color with no rashes, no lesions, and no evidence of cellulitis. MS/ Extremity: Pulses equal, no cyanosis. Neurovascular intact. Full, normal range of motion. Psych: Awake, alert, with orientation to person, place and time. Behavior, mood, and affect are within normal limits. 14:26 ECG was reviewed by the Attending Physician. Sinus tachycardia, rate 106, no STEMi sd2 criteria or significant ST-T wave changes Vital Signs: 13:22 BP 161 / 85; Pulse 116; Resp 28 S; Temp 98.2(O); Pulse Ox 94% on 5 lpm NC; Weight 68.04 kc6 kg (R); Height 5 ft. 4 in. (R); 13:30 BP 170 / 81; Pulse 85; Resp 17; Pulse Ox 98% on 3 lpm NC; Pain 6/10; tl4 13:45 BP 164 / 80; Pulse 85; Resp 15; Pulse Ox 99% on 3 lpm NC; tl4 14:00 BP 121 / 82; Pulse 92; Resp 14; Pulse Ox 100% on 3 lpm NC; Pain 6/10; tl4 14:30 BP 130 / 79; Pulse 104; Resp 25; Pulse Ox 100% on 2 lpm NC; tl4 15:00 BP 120 / 54; Pulse 95; Resp 24; Pulse Ox 97% on 2 lpm NC; Pain 4/10; tl4 15:30 BP 136 / 77; Pulse 107; Resp 24; Pulse Ox 99% on 2 lpm NC; Pain 6/10; tl4 16:00 BP 110 / 53; Pulse 97; Resp 18; Pulse Ox 97% on 2 lpm NC; tl4 16:30 BP 121 / 64; Pulse 103; Resp 18; Pulse Ox 95% on 2 lpm NC; Pain 6/10; tl4 17:00 BP 105 / 70; Pulse 92; Resp 18; Temp 98.1(O); Pulse Ox 98% on 2 lpm NC; tl4 17:30 BP 143 / 76; Pulse 105; Resp 26; Pulse Ox 95% on 2 lpm NC; tl4 13:22 Body Mass Index 25.75 (68.04 kg, 162.56 cm) kc6 13:30 Pain Scale: Adult tl4 14:00 Pain Scale: Adult tl4 15:00 Pain Scale: Adult tl4 15:30 Pain Scale: Adult tl4 16:30 Pain Scale: Adult tl4 MDM: 13:26 Patient medically screened. sd2 13:51 Differential diagnosis: Differential diagnosis includes but is not limited to: ACS, sd2 DVT/PE, pneumothorax, dissection, musculoskeletal, anxiety, anemia, electrolyte abnormality, pneumonia, CHF, COPD among others. Data reviewed: vital signs, nurses notes, EMS record, lab test result(s), EKG, radiologic studies. I considered the following discharge prescriptions or medication management in the emergency department Medications were administered in the Emergency Department. See MAR. Historians other than the Patient: EMS: provides report. Care significantly affected by the following chronic conditions: Chronic Obstructive Pulmonary Disease. Counseling: I had a detailed discussion with the patient and/or guardian regarding the historical points, exam findings, and any diagnostic results supporting the discharge/admit diagnosis, lab results, radiology results, the need for further work-up and treatment in the hospital. 16:05 ED course: Labs and imaging reviewed. Possible PNA vs edema on CXR. BNP pending. Pt sd2 resting comfortably. Requiring increased O2 requirement despite treatment. Will plan for admission to hospitalist at this time.. 07/16 13:27 Order name: Blood Culture Adult (2) 07/16 13:27 Order name: CBC with Diff; Complete Time: 15:01 07/16 13:27 Order name: CMP; Complete Time: 15:01 07/16 13:27 Order name: Lactate w/ 2H reflex if indic.; Complete Time: 15:01 07/16 13:27 Order name: Protime (+inr); Complete Time: 15:01 07/16 13:27 Order name: Ptt, Activated; Complete Time: 15:01 07/16 13:27 Order name: Urinalysis w/ reflexes; Complete Time: 16:03 02 13:27 Order name: ABG; Complete Time: 15:01 sd2 07/16 13:47 Order name: Glucose, Ancillary Testing; Complete Time: 15:01 EDMS 07/16 15:53 Order name: Urine Culture EDMS 07/16 16:04 Order name: BNP sd2 07/16 17:04 Order name: CBC with Automated Diff EDMS 07/16 17:04 Order name: CBC with Automated Diff EDMS 07/16 17:04 Order name: Comprehensive Metabolic Panel EDMS 07/16 17:04 Order name: Comprehensive Metabolic Panel EDMS 07/16 17:04 Order name: Lactate w/ 2H reflex if indic. EDMS 07/16 17:04 Order name: Lactate w/ 2H reflex if indic. EDMS 07/16 17:04 Order name: Lipid Profile EDMS 07/16 17:04 Order name: Lipid Profile EDMS 07/16 17:04 Order name: Magnesium EDMS 07/16 17:04 Order name: Magnesium EDMS 07/16 17:04 Order name: NT PRO-BNP EDMS 07/16 17:04 Order name: NT PRO-BNP EDMS 07/16 17:04 Order name: Phosphorus EDMS 07/16 17:04 Order name: Phosphorus EDMS 07/16 17:04 Order name: Troponin High Sensitivity EDMS 07/16 17:04 Order name: Troponin High Sensitivity EDMS 07/16 17:04 Order name: Troponin High Sensitivity EDMS 07/16 17:04 Order name: Troponin High Sensitivity EDMS 07/16 13:27 Order name: Chest Single View XRAY; Complete Time: 15:01 sd2 07/16 13:27 Order name: EKG; Complete Time: 13:27 sd2 07/16 17:04 Order name: CONS Physician Consult EDMS 07/16 13:27 Order name: Accucheck; Complete Time: 13:52 sd2 07/16 13:27 Order name: Cardiac monitoring; Complete Time: 13:52 sd2 07/16 13:27 Order name: EKG - Nurse/Tech; Complete Time: 13:52 sd2 07/16 13:27 Order name: IV Saline Lock - Large Bore; Complete Time: 13:52 sd2 07/16 13:27 Order name: Labs collected and sent; Complete Time: 13:52 sd2 07/16 13:27 Order name: O2 Per Protocol; Complete Time: 13:52 sd2 07/16 13:27 Order name: O2 Sat Monitoring; Complete Time: 13:52 sd2 07/16 13:27 Order name: Vital Signs; Complete Time: 13:52 sd2 Administered Medications: 14:05 Drug: NS 0.9% IV 1000 ml IV at 1 bolus Per protocol; 1000 mL bolus Route: IV; Rate: 1 tl4 bolus; Site: right antecubital; Delivery: Primary tubing; 14:06 Drug: Albuterol Inhalation 10 mg Inhalation once {Note: via nebulizer set up with face tl4 mask, oxygen at 10 lpm.} Route: Inhalation; 14:36 Follow up: Response: No adverse reaction tl4 15:19 Drug: levofloxacin IVPB 750 mg 150 ml IVPB once over 90 mins {Note: via IV pump.} tl4 Volume: 150 ml; Route: IVPB; Infused Over: 90 mins; Site: right antecubital; Delivery: Primary tubing; 16:50 Follow up: IV Status: Completed infusion; IV Intake: 150ml tl4 16:51 Follow up: Response: No adverse reaction tl4 16:13 Drug: MethylPrednisoLONE IVP 125 mg IVP once Route: IVP; Site: right antecubital; mb9 16:50 Follow up: Response: No adverse reaction tl4 Disposition Summary: 07/17/23 16:07 Hospitalization Ordered Notes: Hospitalization Status: Inpatient Admission sd2 Provider: Tasia Rosa [facility] sd2 Condition: Stable sd2 Problem: an ongoing problem sd2 Symptoms: have worsened sd2 Bed/Room Type: [place] [id number] Room Assignment: 404(07/17/23 17:09) 6 Diagnosis - COPD/ Chronic obstructive pulmonary disease with (acute) exacerbation sd2 - Acute and chronic respiratory failure with hypoxia sd2 Forms: - Medication Reconciliation Form sd2 - SBAR form sd2 - Leadership Thank You Letter sd2 Signatures: Dispatcher [employer] Glendy aGrrido MD MD sd2 Eulalia Hoover RN RN kc6 Frida Schmidt RN RN mb9 Chasidy Leon bc6 Jb Pulido RN RN tl4 Corrections: (The following items were deleted from the chart) 13:27 13:27 BLOOD CULTURE*+BA.LAB.BRZ ordered. EDMS EDMS 13: 13:27 CBC+H.LAB.BRZ ordered. EDMS EDMS 13: 13:27 COMPREHENSIVE METABOLIC PANEL+C.LAB.BRZ ordered. EDMS EDMS 13: 13:27 LACTATE+C.LAB.BRZ ordered. EDMS EDMS 13: 13:27 PROTIME (+INR)+COAG.LAB.BRZ ordered. EDMS EDMS 13: 13:27 PTT, ACTIVATED+COAG.LAB.BRZ ordered. EDMS EDMS 13: 13:27 Urinalysis+U.LAB.BRZ ordered. EDMS EDMS 16:04 16:04 PROBNP+C.LAB.BRZ ordered. EDMS EDMS 17:09 16:07 sd2 bc6
[2023-07-17] MEDS ORDERED: METHYLPREDNISOLONE 125 MG INJ ONE (16:09)
[2023-07-17] MEDS ORDERED: LIDOCAINE 1% MPF 5 ML VIAL ONE (16:09)
[2023-07-17] MEDS ORDERED: ONDANSETRON 4 MG/2 ML VIAL IV PRN (16:57)
[2023-07-17] MEDS ORDERED: HYDROCODONE/CHLORPHEN 5 ML/OSYR PO PRN (16:57)
--- NOTE | 2023-07-17 16:57 | P.HP ---
Certification for Inpatient Patient admitted to: Inpatient With expected LOS: >2 Midnights Patient will require the following post-hospital care: None Practitioner: I am a practitioner with admitting privileges, knowledge of patient current condition, hospital course, and medical plan of care. Services: Services provided to patient in accordance with Admission requirements found in Title 42 Section 412.3 of the Code of Federal Regulations Patient History Date of Service: 07/17/23 Reason for admission: Acute respiratory distress History of Present Illness: Ms. Alejandra is a 62 year old female with past medical history of COPD on home O2 at 3 L who presented to the emergency department with complaints of shortness of breath. She states that she has had some difficulty breathing, especially on exertion, for about the last week. She had to increase her O2 to 5L (typically uses 3L). She called her sheet metal mechanic to have called in an antibiotic and steroids along with an inhaler. She did not have the $400 to get her medications. She kept getting worse so she called EMS and she was brought into the emergency room where she was found to be hypoxic with an O2 sat in the 60s. Patient was given nebs, IV steroids, and IV antibiotics. Her oxygen saturations are improved on 5 L. She is currently satting 92% on 4 L. At this time, she will be admitted to the hospital for further evaluation and she is fairly tachypneic and oxygen requirements have increased. She states she gets severely short of breath just from ambulating. Her chest x-ray is concerning for an infiltrate. Patient will be admitted to the hospital for inpatient hospitalization for more aggressive treatment of her acute COPD. Pulmonary consultation will be pending as well. Allergies Penicillins Allergy (Verified 07/19/22 21:14) Anaphylaxis Sulfa (Sulfonamide Antibiotics) Allergy (Verified 07/19/22 21:14) Hives/Rash Home Medications: D-Methorphan Hb/Prometh HCl [Promethazine-Dm Syrup] 5 ml PO Q6HR PRN 07/19/22 Fluoxetine HCl [Prozac] 40 mg PO DAILY 07/19/22 clonazePAM [Clonazepam] 1 mg PO TID 07/19/22 Atorvastatin Calcium [Lipitor*] 20 mg PO BEDTIME #30 tab 07/24/22 Azithromycin Tab [Zithromax*] 250 mg PO DAILY 4 Days #4 tab 07/24/22 Benzonatate 100 mg PO Q8H PRN 10 Days #30 tab 07/24/22 Hydrocodone/Chlorphen Polis [Tussionex Oral Susp*] 5 ml PO BID PRN 10 Days #100 ml 07/24/22 Pantoprazole [Protonix Tab*] 40 mg PO BIDAC tab 07/24/22 Roflumilast [Daliresp*] 500 mcg PO DAILY 07/24/22 Tiotropium [Spiriva Handihaler*] 1 sprays IH DAILY inhaler 07/24/22 predniSONE [Prednisone] 10 mg PO BID 5 Days #20 tab 07/24/22 - Past Medical/Surgical History Diabetic: No -: COPD on home O2 -: Depression -: Anxiety -: -: Hysterectomy Psychosocial/ Personal History: Patient is . She has a son. - Family History Sister Medical History: Heart disease Father Medical History: Lung disease - Social History Smoking Status: Former smoker (Quit 7 years ago) Alcohol use: Yes CD- Drugs: No Caffeine use: Yes Review of Systems 10-point ROS is otherwise unremarkable Physical Examination - Vital Signs Temperature: 99 F Blood Pressure: 110/70 Pulse: 120 Respirations: 24 Pulse Ox (%): 70 - Physical Exam General: Alert, In no apparent distress, Oriented x3 HEENT: Atraumatic, PERRLA, Mucous membr. moist/pink, EOMI, Sclerae nonicteric Neck: Supple, 2+ carotid pulse no bruit, No LAD, Without JVD or thyroid abnormality Respiratory: Diminished, Expiratory wheezes Cardiovascular: Regular rate/rhythm, Normal S1 S2 Gastrointestinal: Normal bowel sounds, Soft and benign, Non-distended, No tenderness Musculoskeletal: No clubbing, No swelling, No tenderness Integumentary: No rashes Neurological: Normal gait, Normal speech, Normal strength at 5/5 x4 extr, Normal tone, Sensation intact, Cranial nerves 3-12 intact, Normal affect Lymphatics: No axilla or inguinal lymphadenopathy - Studies Laboratory Data (last 24 hrs) 07/17/23 07/17/23 07/17/23 13:44 13:44 13:44 WBC 12.40 H Hgb 15.3 H Hct 46.5 H Plt Count 258 PT 11.5 INR 1.05 APTT 26.6 Sodium 139 Potassium 3.6 BUN 8 Creatinine 0.88 Glucose 172 H Total Bilirubin 0.4 AST 42 H ALT 55 Alkaline Phosphatase 95 Assessment & Plan - Problems (Diagnosis) (1) Acute and chronic respiratory failure with hypoxia Current Visit: No Status: Acute (2) COPD with acute exacerbation Current Visit: No Status: Acute (3) Depression Current Visit: Yes Status: Acute Qualifiers: Depression Type: major depressive disorder - Plan Plan: -Acute hypoxic respiratory failure secondary to an acute COPD exacerbation; Plan: 1. Continue with albuterol and Atrovent nebs 2. Continue with IV steroids and IV antibiotic 3. Repeat chest x-ray in the morning 4. Cough medication -Depression Plan: Continue with antidepressant Discharge Plan: Home Plan to discharge in: Greater than 2 days - Advance Directives Does patient have a Living Will: No Does patient have a Durable POA for Healthcare: No - Code Status/Comfort Care Code Status Assessed: Yes Code Status: Full Code Critical Care: No Time Spent Managing PTS Care (In Minutes): 45
[2023-07-17] MEDS: ALBUTEROL 2.5 MG/3 ML NEB SOL NEB SCH (19:54)
[2023-07-17] MEDS: IPRATROPIUM BROM 0.5MG/2.5ML NEB SCH (19:54)
[2023-07-17] MEDS ORDERED: BENZONATATE 100 MG CAP PO PRN (20:42)
[2023-07-17] MEDS: clonazePAM 1 MG TAB PO PRN (20:52)
[2023-07-17] MEDS: BENZONATATE 100 MG CAP PO PRN (20:52)
[2023-07-17] MEDS: ENOXAPARIN 40 MG/0.4 ML SQ SCH (20:52)
[2023-07-17] MEDS: predniSONE 20 MG TAB PO SCH (21:00)
[2023-07-17 21:27] VITALS: BMI 25.7
[2023-07-17] MEDS: METHYLPREDNISOLONE 125 MG INJ IV SCH (23:46)
[2023-07-17] MEDS: PROMETHAZINE-DM 5 ML OSYR PO PRN (23:46)
[2023-07-18] MEDS: Levofloxacin 750mg IV 750 MG/150 ML BAG IV SCH (06:00)
[2023-07-18] MEDS: FLUOXETINE 20 MG CAP PO SCH (08:17)
[2023-07-18 10:03] LABS: Hematocrit 42.5 % (36.0-45.0); Hemoglobin 14.1 g/dL (12.0-15.0); MCV 97.6 fL (80-100); Magnesium 2.3 mg/dL (1.6-2.4); RBC Red Blood Cell Count 4.36 M/uL (3.86-4.86)
[2023-07-18 10:04] LABS: Absolute Lymphocytes (CBC) 0.6 K/uL (0.7-4.9); Absolute Monocytes 0.1 K/uL (0.1-1.3); Absolute Neutrophil 6.8 K/uL (1.8-8.0); Basophils % 0.2 % (0-1.3); Lymphocytes % 8.1 % (15.3-44.8); MCH 32.4 pg (27.0-35.0); MCHC 33.2 g/dL (32.0-36.0); MPV 8.4 fL (7.6-11.3); Monocytes % 0.8 % (3.3-12.3); Neutrophils % 90.9 % (41.7-73.7); Platelets 221 thou/uL (152-406); Red Cell Distribution Width 12.3 % (12.1-15.2)
[2023-07-18 12:01] LABS: Band Neutrophils 5 % (0-1); Blood Morphology Comment NOT SEEN (NOT SEEN); Differential Total Cells Count 100; Lymphocytes 10 % (15-42); Monocytes 2 % (0-10); Nucleated Red Blood Cells 1 /100WBC; Platelet Estimate ADEQ; Segmented Neutrophils 83 % (40-80)
[2023-07-18 12:53] LABS: Albumin 3.6 g/dL (3.4-5.0); Albumin/Globulin Ratio 1.2 (1.1-1.8); Anion Gap 8.9 mEq/L (5.0-15.0); Bilirubin Total 0.3 mg/dL (0.2-1.0); Globulin 3.1 g/dL (2.3-3.5); Phosphorus 2.9 mg/dL (2.5-4.9); Potassium 3.9 mEq/L (3.5-5.1); Protein, Total 6.7 g/dL (6.4-8.2); Troponin High Sensitivity 3.2 pg/mL (<58.9)
--- NOTE | 2023-07-18 14:38 | EKG ---
Test Date: 2023-07-17 Test Time: 13:30:10 Crumb Packer: MB MEASUREMENT RESULTS: Intervals: Rate: 106 MT: 128 QRSD: 74 QT: 346 QTc: 459 [place]: P: 84 MT: 128 QRS: 91 T: 80 INTERPRETIVE STATEMENTS: Sinus tachycardia Otherwise normal ECG Compared to ECG 05/23/2023 17:32:03 Sinus rhythm no longer present Right-axis deviation no longer present Electronically Signed On 07-18-23 14:36:55 CDT by Brian Bingham
[2023-07-18] MEDS: ACETAMINOPHEN 500 MG TAB PO PRN (18:16)
--- NOTE | 2023-07-18 19:17 | P.CNS ---
Date of Consult: 07/18/23 Reason for Consult: COPD exacerbation Chief Complaint: Acute respiratory distress History of Present Illness: Patient is 62 years of age admitted with worsening dyspnea over the past 4 days history of severe terminal COPD Allergies Penicillins Allergy (Verified 07/19/22 21:14) Anaphylaxis Sulfa (Sulfonamide Antibiotics) Allergy (Verified 07/19/22 21:14) Hives/Rash Home Medications: D-Methorphan Hb/Prometh HCl [Promethazine-Dm Syrup] 5 ml PO Q6HR PRN 07/19/22 Fluoxetine HCl [Prozac] 40 mg PO DAILY 07/19/22 clonazePAM [Clonazepam] 1 mg PO TID PRN 07/19/22 Benzonatate 100 mg PO Q8H PRN 10 Days #30 tab 07/24/22 predniSONE [Prednisone] 20 mg PO BID 07/17/23 - Past Medical/Surgical History Diabetic: No -: COPD on home O2 -: Depression -: Anxiety -: -: Hysterectomy Psychosocial/ Personal History: Patient is . She has a son. - Family History Sister Medical History: Heart disease Father Medical History: Lung disease - Social History Smoking Status: Former smoker Alcohol use: Yes CD- Drugs: No Caffeine use: Yes Place of Residence: Home Review of Systems 10-point ROS is otherwise unremarkable General: Weakness Respiratory: Shortness of Breath Physical Examination Temp Pulse Resp BP Pulse Ox 97.1 F 82 20 112/69 97 07/18/23 00:00 07/18/23 00:00 07/18/23 00:00 07/18/23 00:00 07/18/23 00:00 General: Alert, In no apparent distress, Moderate distress Respiratory: Clear to auscultation bilaterally, Diminished, Friction rub Cardiovascular: No edema, Normal S1 S2 Laboratory Data (last 24 hrs) 07/17/23 07/17/23 07/17/23 13:44 13:44 13:44 WBC 12.40 H Hgb 15.3 H Hct 46.5 H Plt Count 258 PT 11.5 INR 1.05 APTT 26.6 Sodium 139 Potassium 3.6 BUN 8 Creatinine 0.88 Glucose 172 H Total Bilirubin 0.4 AST 42 H ALT 55 Alkaline Phosphatase 95 - Problems (1) Acute and chronic respiratory failure with hypoxia Current Visit: No Status: Acute Plan: Patient is 62 years of age with a history of terminal progressive COPD admitted with an exacerbation acute on chronic respiratory failure continue with bronchodilators steroids evaluate for NIV once stable labs chemistries reviewed chest x-ray COPD changes prognosis poor patient has been progressing unable to afford any long-acting bronchodilators at home blood pressure stable
--- NOTE | 2023-07-18 19:18 | P.PN ---
Subjective Date of Service: 07/18/23 Chief Complaint: Acute respiratory distress Admitted with a COPD exacerbation, pulmonary consult On O2 3 L at home, she reports mild improvement, shortness of breath with - Physical Exam General: Alert, In no apparent distress, Oriented x3 HEENT: Atraumatic, PERRLA, Mucous membr. moist/pink, EOMI, Sclerae nonicteric Neck: Supple, 2+ carotid pulse no bruit, No LAD, Without JVD or thyroid abno rmality Respiratory: Diminished, Expiratory wheezes Cardiovascular: Regular rate/rhythm, Normal S1 S2 Gastrointestinal: Normal bowel sounds, Soft and benign, Non-distended, No tenderness Musculoskeletal: No clubbing, No swelling, No tenderness Integumentary: No rashes Neurological: Normal gait, Normal speech, Normal strength at 5/5 x4 extr, Normal tone, Sensation intact, Cranial nerves 3-12 intact, Normal affect Lymphatics: No axilla or inguinal lymphadenopathy Review of Systems per HPI Physical Examination - Vital Signs Temperature: 97.9 F Blood Pressure: 166/78 Pulse: 118 Respirations: 20 Pulse Ox (%): 94 - Studies Laboratory Data (last 24 hrs) 07/17/23 07/17/23 07/17/23 13:44 13:44 13:44 WBC 12.40 H Hgb 15.3 H Hct 46.5 H Plt Count 258 PT 11.5 INR 1.05 APTT 26.6 Sodium 139 Potassium 3.6 BUN 8 Creatinine 0.88 Glucose 172 H Total Bilirubin 0.4 AST 42 H ALT 55 Alkaline Phosphatase 95 Assessment And Plan - Plan Assessment & Plan - Problems (Diagnosis) (1) Acute and chronic respiratory failure with hypoxia Current Visit: No Status: Acute (2) COPD with acute exacerbation Current Visit: No Status: Acute (3) Depression Current Visit: Yes Status: Acute Qualifiers: Depression Type: major depressive disorder - Plan Plan: -Acute hypoxic respiratory failure secondary to an acute COPD exacerbation; Plan: 1. Continue with albuterol and Atrovent nebs 2. Continue with IV steroids and IV antibiotic 3. Repeat chest x-ray in the morning 4. Cough medication -Depression Plan: Continue with antidepressant Discharge Plan: Home Plan to discharge in: Greater than 2 days Discharge Plan: Home - Code Status/Comfort Care Code Status: Full Code Critical Care: No Time Spent Managing PTS Care (In Minutes): 35
--- NOTE | 2023-07-18 21:04 | P.PN ---
Subjective Date of Service: 07/18/23 Patient continues to improve. Patient's clinical symptoms are improving. Patient still has been no significant cough at this time. Patient still appears to be a little congested. Anticipate discharge over the next 24-48 hours. Review of Systems 10-point ROS is otherwise unremarkable Physical Examination - Vital Signs Temperature: 97.6 F Blood Pressure: 118/64 Pulse: 90 Respirations: 19 Pulse Ox (%): 93 - Physical Exam General: Alert, In no apparent distress, Oriented x3 Respiratory: Clear to auscultation bilaterally, Normal air movement Cardiovascular: Regular rate/rhythm, Normal S1 S2, No murmurs Gastrointestinal: Normal bowel sounds, Soft and benign, Non-distended, No tenderness Musculoskeletal: No clubbing, No swelling, No tenderness Neurological: Sensation intact, Cranial nerves 3-12 intact - Studies Medications List Reviewed: Yes Assessment & Plan - Problems (Diagnosis) (1) Acute and chronic respiratory failure with hypoxia Current Visit: No Status: Acute (2) COPD with acute exacerbation Current Visit: No Status: Acute (3) Depression Current Visit: Yes Status: Acute Qualifiers: Depression Type: major depressive disorder - Plan - Continue with nebs, steroids, and antibiotics - O2 per protocol. - repeat chest x-ray - pulmonary consultation appreciated - Cough medication Discharge Plan: Home Plan to discharge in: Greater than 2 days - Advance Directives Does patient have a Living Will: No Does patient have a Durable POA for Healthcare: No - Code Status/Comfort Care Code Status: Full Code Critical Care: No Time Spent Managing PTS Care (In Minutes): 35
[2023-07-18] MEDS: HYDROCODONE/CHLORPHEN 5 ML/OSYR PO PRN (21:25)
--- NOTE | 2023-07-19 08:06 | RAD REPORT ---
EXAM DESCRIPTION: RAD - Chest Single View - 07/19/2023 5:31 am CLINICAL HISTORY: pneumonia COMPARISON: Chest Single View dated 07/17/2023; Chest Single View dated 07/23/2022; Chest Single View da howard 07/21/2022; Chest Single View dated 07/19/2022 FINDINGS: Lines: None. Lungs: Mild opacities in the lung bases bilaterally. This is similar. Pleural: No significant pleural effusions or pneumothorax. Cardiac: The heart size is within normal limits. Mediastinum: Within normal limits. Bones: No acute fractures. Other: None IMPRESSION: Mild opacities in the lung bases possibly representing atelectasis and unchanged since 0 07/17/2023.
[2023-07-19 08:10] LABS: Absolute Lymphocytes (CBC) 0.8 K/uL (0.7-4.9); Absolute Monocytes 0.3 K/uL (0.1-1.3); Absolute Neutrophil 15.5 K/uL (1.8-8.0); Basophils % 0.1 % (0-1.3); Hematocrit 41.8 % (36.0-45.0); Hemoglobin 14.2 g/dL (12.0-15.0); Lymphocytes % 4.9 % (15.3-44.8); MCH 33.3 pg (27.0-35.0); MCHC 33.9 g/dL (32.0-36.0); MPV 8.3 fL (7.6-11.3); Monocytes % 1.7 % (3.3-12.3); Neutrophils % 93.3 % (41.7-73.7); Platelets 251 thou/uL (152-406); RBC Red Blood Cell Count 4.26 M/uL (3.86-4.86); Red Cell Distribution Width 12.6 % (12.1-15.2)
[2023-07-19 08:31] LABS: Anion Gap 7.8 mEq/L (5.0-15.0); Magnesium 2.5 mg/dL (1.6-2.4); Potassium 3.8 mEq/L (3.5-5.1)
[2023-07-19 09:19] LABS: Blood Morphology Comment NOT SEEN (NOT SEEN); Platelet Estimate ADEQ; Platelets Clumped FEW; White Blood Cell Scan OK (OK)
--- NOTE | 2023-07-19 09:29 | P.PN ---
Subjective Date of Service: 07/20/23 Chief Complaint: Acute respiratory distress Admitted with a COPD exacerbation, pulmonary consult On O2 3 L at home, she reports mild improvement, shortness of breath with exertion, reports congestion - Physical Exam General: Alert, In no apparent distress, Oriented x3 HEENT: Atraumatic, PERRLA, Mucous membr. moist/pink, EOMI, Sclerae nonicteric Neck: Supple, 2+ carotid pulse no bruit, No LAD, Without JVD or thyroid abnormality Respiratory: Diminished, Expiratory wheezes Cardiovascular: Regular rate/rhythm, Normal S1 S2 Gastrointestinal: Normal bowel sounds, Soft and benign, Non-distended, No tenderness Musculoskeletal: No clubbing, No swelling, No tenderness Integumentary: No rashes Neurological: Normal gait, Normal speech, Normal strength at 5/5 x4 extr, Normal tone, Sensation intact, Cranial nerves 3-12 intact, Normal affect Lymphatics: No axilla or inguinal lymphadenopathy <Carmen Tate - Last Filed: 07/20/23 07:39> Date of Service: 07/19/23 <Tasia Rosa - Last Filed: 07/20/23 21:31> Review of Systems Per HPI <Carmen Tate - Last Filed: 07/20/23 07:39> Physical Examination - Vital Signs Temperature: 98.1 F Blood Pressure: 129/71 Pulse: 103 Respirations: 16 Pulse Ox (%): 94 - Studies Medications List Reviewed: Yes <Carmen Tate - Last Filed: 07/20/23 07:39> Assessment And Plan - Plan Assessment & Plan Acute and chronic respiratory failure with hypoxia Pneumonia COPD with acute exacerbation Home O2 dependent (3) Depression Current Visit: Yes Status: Acute Qualifiers: Depression Type: major depressive disorder -Acute hypoxic respiratory failure secondary to an acute COPD exacerbation; Plan: 1. Continue with albuterol and Atrovent nebs, budesonide 2. Continue with IV steroids and IV antibiotic, antitussives 3. Repeat chest x-ray in the morning 4. Cough medication -Depression Plan: Continue with antidepressant Discharge Plan: Home Plan to discharge in: Greater than 2 days Discharge Plan: Home - Code Status/Comfort Care Code Status: Full Code Critical Care: No Time Spent Managing PTS Care (In Minutes): 35 <Carmen Tate - Last Filed: 07/20/23 07:39> - Current Problems (Diagnosis) (1) Acute and chronic respiratory failure with hypoxia Current Visit: No Status: Acute (2) COPD with acute exacerbation Current Visit: No Status: Acute (3) Depression Current Visit: Yes Status: Acute Qualifiers: Depression Type: major depressive disorder <Tasia Rosa - Last Filed: 07/20/23 21:31> Date of Service: 07/19/23 <Tasia Rosa - Last Filed: 07/20/23 21:31>
--- NOTE | 2023-07-19 09:34 | P.DS ---
Admission Date: 07/17/23 Discharge Date: 07/19/23 Disposition: DC HOME/HOME HEALTH CARE Discharge Condition: GOOD Reason for Admission: Acute respiratory distress Brief History of Present Illness: Ms. Alejandra is a 62 year old female with past medical history of COPD on home O2 at 3 L who presented to the emergency department with complaints of shortness of breath. She states that she has had some difficulty breathing, especially on exertion, for about the last week. She had to increase her O2 to 5L (typically uses 3L). She called her lease out man to have called in an antibiotic and steroids along with an inhaler. She did not have the $400 to get her medications. She kept getting worse so she called EMS and she was brought into the emergency room where she was found to be hypoxic with an O2 sat in the 60s. Patient was given nebs, IV steroids, and IV antibiotics. Her oxygen saturations are improved on 5 L. She is currently satting 92% on 4 L. At this time, she will be admitted to the hospital for further evaluation and she is fairly tachypneic and oxygen requirements have increased. She states she gets severely short of breath just from ambulating. Her chest x-ray is concerning for an infiltrate. Patient will be admitted to the hospital for inpatient hospitalization for more aggressive treatment of her acute COPD. Pulmonary consultation will be pending as well. - Physical Exam General: Alert, In no apparent distress, Oriented x3 HEENT: Atraumatic, PERRLA, Mucous membr. moist/pink, EOMI, Sclerae nonicteric Neck: Supple, 2+ carotid pulse no bruit, No LAD, Without JVD or thyroid abnormality Respiratory: Diminished, equal unlabored, shortness of breath with exertion Cardiovascular: Regular rate/rhythm, Normal S1 S2 Gastrointestinal: Normal bowel sounds, Soft and benign, Non-distended, No tenderness Musculoskeletal: No clubbing, No swelling, No tenderness Integumentary: No rashes Neurological: Normal gait, Normal speech, Normal strength at 5/5 x4 extr, Normal tone, Sensation intact, Cranial nerves 3-12 intact, Normal affect Lymphatics: No axilla or inguinal lymphadenopathy Hospital Course: 62 year old female with past medical history of COPD on home O2 at 3 L who presented to the emergency department with complaints of shortness of breath. She states that she has had some difficulty breathing, especially on exertion, Was noted to have COPD exacerbation. Pulmonary was consulted condition improved with nebulizers, steroids, oxygen, IV antibiotics. Patient tolerating diet, stable for discharge to home with follow-up appointment with primary care physician. Follow-up with lease out man after discharge educated on respiratory medication compliance PROBLEM: COPD exacerbation was evaluated by pulmonary treated with nebulizers, steroids, oxygen, antibiotics while inpatient Dyspnea on exertion, on home O2 Home O2 dependent Depression resume appropriate home Leukocytosis, treated with IV antibiotic, likely secondary to infection versus steroid use Hyperlipidemia resume appropriate home antilipid, follow-up with PCP after discharge Rad/Lab/Micro: Chest x-ray FINDINGS: Portable technique limits examination quality.Mildly opacities in both lung bases probably represents atelectasis. Trace bilateral pleural effusions. The heart is upper limit normal in size. No displaced fractures. ABG acute hypoxic hypercarbic respiratory failure secondary to COPD Elevated cholesterol LDL 216, HDL 62, triglycerides normal 50 Continue home medicines as previously prescribed GOAL: Clear understanding of disease process INSTRUCTIONS: Physician Discharge Instructions: -Follow-up with PCP in 1 to 2 weeks -Please call Dr. Rosa at [phone] if any questions regarding hospital stay -Please call nursing station at [phone] if any nursing or medication questions -Return to the emergency room if symptoms worsen Diet: ADA, low sodium Activity: Fall precautions Vital Signs/Physical Exam: Temp Pulse Resp BP Pulse Ox 98.1 F 103 H 16 129/71 94 07/19/23 09:28 07/19/23 09:28 07/19/23 09:28 07/19/23 09:28 07/19/23 09:28 Laboratory Data at Discharge: WBC 16.60 thou/uL (4.3-10.9) H 07/19/23 07:15 Hgb 14.2 g/dL (12.0-15.0) 07/19/23 07:15 Hct 41.8 % (36.0-45.0) 07/19/23 07:15 Plt Count 251 thou/uL (152-406) 07/19/23 07:15 PT 11.5 SECONDS (9.5-12.5) 07/17/23 13:44 INR 1.05 07/17/23 13:44 APTT 26.6 SECONDS (24.3-36.9) 07/17/23 13:44 Sodium 142 mEq/L (136-145) 07/19/23 07:15 Potassium 3.8 mEq/L (3.5-5.1) 07/19/23 07:15 BUN 11 mg/dL (7-18) 07/19/23 07:15 Creatinine 0.88 mg/dL (0.55-1.02) 07/19/23 07:15 Glucose 205 mg/dL (74-106) H 07/19/23 07:15 Phosphorus 2.9 mg/dL (2.5-4.9) 07/18/23 03:55 Magnesium 2.5 mg/dL (1.6-2.4) H 07/19/23 07:15 Total Bilirubin 0.3 mg/dL (0.2-1.0) 07/18/23 03:55 AST 37 U/L (15-37) 07/18/23 03:55 ALT 51 U/L (13-56) 07/18/23 03:55 Alkaline Phosphatase 86 U/L (45-117) 07/18/23 03:55 Triglycerides 57 mg/dL (<150) 07/18/23 03:55 Cholesterol 216 mg/dL (<200) H 07/18/23 03:55 HDL Cholesterol 62 mg/dL (40-60) H 07/18/23 03:55 Cholesterol/HDL Ratio 3.48 07/18/23 03:55 Home Medications: D-Methorphan Hb/Prometh HCl [Promethazine-Dm Syrup] 5 ml PO Q6HR PRN 07/19/22 Fluoxetine HCl [Prozac] 40 mg PO DAILY 07/19/22 clonazePAM [Clonazepam] 1 mg PO TID PRN 07/19/22 Benzonatate 100 mg PO Q8H PRN 10 Days #30 tab 07/24/22 predniSONE [Prednisone] 20 mg PO BID 07/17/23 Followup: TIFFANY YOUNGBLOOD [Primary Care Provider] - Time spent managing pt's care (in minutes): 55
[2023-07-19] MEDS: POTASSIUM CL SA 10 MEQ TAB PO ONE (10:45)
[2023-07-19] MEDS: BUDESONIDE 0.5 MG/2 ML NEB NEB SCH (12:35)
[2023-07-19] MEDS: CEFEPIME 2 GM in NA CHLORIDE 0.9% 100 ML IV SCH (13:48)
[2023-07-19] MEDS: LACTOBACILLUS/ACIDOPHILUS TAB PO SCH (13:49)
--- NOTE | 2023-07-20 07:43 | P.PN ---
Subjective Date of Service: 07/20/23 Chief Complaint: Acute respiratory distress Admitted with a COPD exacerbation, pulmonary consult On O2 3 L at home, she reports mild improvement, shortness of breath with exertion, reports congestion Levaquin and cefepime added for leukocytosis Budesonide added to nebulizer - Physical Exam General: Alert, In no apparent distress, Oriented x3 HEENT: Atraumatic, PERRLA, Mucous membr. moist/pink, EOMI, Sclerae nonicteric Neck: Supple, 2+ carotid pulse no bruit, No LAD, Without JVD or thyroid abnormality Respiratory: Diminished, Expiratory wheezes Cardiovascular: Regular rate/rhythm, Normal S1 S2 Gastrointestinal: Normal bowel sounds, Soft and benign, Non-distended, No tenderness Musculoskeletal: No clubbing, No swelling, No tenderness Integumentary: No rashes Neurological: Normal gait, Normal speech, Normal strength at 5/5 x4 extr, Normal tone, Sensation intact, Cranial nerves 3-12 intact, Normal affect Lymphatics: No axilla or inguinal lymphadenopathy <Carmen Tate - Last Filed: 07/20/23 07:44> Date of Service: 07/20/23 <Tasia Rosa - Last Filed: 07/20/23 23:33> Review of Systems Per HPI <Carmen Tate - Last Filed: 07/20/23 07:44> Physical Examination - Vital Signs Temperature: 98.1 F Blood Pressure: 129/71 Pulse: 103 Respirations: 16 Pulse Ox (%): 94 - Studies Medications List Reviewed: Yes <Carmen Tate - Last Filed: 07/20/23 07:44> Assessment And Plan - Plan Assessment & Plan Acute and chronic respiratory failure with hypoxia Pneumonia COPD with acute exacerbation Home O2 dependent (3) Depression Current Visit: Yes Status: Acute Qualifiers: Depression Type: major depressive disorder -Acute hypoxic respiratory failure secondary to an acute COPD exacerbation; Plan: 1. Continue with albuterol and Atrovent nebs, budesonide 2. Continue with IV steroids and IV antibiotic, antitussives 3. Repeat chest x-ray in the morning 4. Cough medication 5. Blood cultures negative, urine culture normal mar 6. Repeat chest x-ray not much improvement, CTA of the chest ordered -Depression Plan: Continue with antidepressant Discharge Plan: Home Plan to discharge in: Greater than 2 days Discharge Plan: Home - Code Status/Comfort Care Code Status: Full Code Critical Care: No Time Spent Managing PTS Care (In Minutes): 35 <Carmen Tate - Last Filed: 07/20/23 07:44> - Current Problems (Diagnosis) (1) Acute and chronic respiratory failure with hypoxia Current Visit: No Status: Acute (2) COPD with acute exacerbation Current Visit: No Status: Acute (3) Depression Current Visit: Yes Status: Acute Qualifiers: Depression Type: major depressive disorder <Tasia Rosa - Last Filed: 07/20/23 23:33> Date of Service: 07/20/23 Patient was seen and examined. Events of the last 24 hours have been noted. Spoke with with OLEGARIO regarding patient's clinical picture after evaluating and examining the patient independently. I performed a substantial part of the MDM during this patient's care today. I personally made or approved the documented management plan and acknowledge its risk of complications. I agree with the findings and documentation provided in the OLEGARIO's notes. <Tasia Rosa - Last Filed: 07/20/23 23:33>
[2023-07-20 08:08] LABS: Anion Gap 3.9 mEq/L (5.0-15.0); Potassium 3.9 mEq/L (3.5-5.1); Troponin High Sensitivity 6.3 pg/mL (<58.9)
[2023-07-20] MEDS: ARFORMOTEROL TARTRATE 15 MCG/2 ML VIAL.NEB NEB SCH ×2 (09:01→20:18)
--- NOTE | 2023-07-20 09:02 | RAD REPORT ---
EXAM DESCRIPTION: CT - Chest For Pe Angio - 07/20/2023 7:46 am CLINICAL HISTORY: Shortness of breath COMPARISON: None. TECHNIQUE: Dynamically enhanced axial 3 mm thick images of the chest were obtained during administra tion of 100 mL Isovue 370 IV contrast. Coronal and oblique reconstruction images were generated and r eviewed. Exam utilizes a protocol for optimal evaluation of pulmonary arterial tree. Maximum intensity projections 3D imaging was utilized All CT scans are performed using dose optimization technique as appropriate and may include automated exposure control or mA/KV adjustment according to patient size. FINDINGS: A pulmonary embolus is not seen. A thoracic aortic aneurysm is not noted. A pleural effusion is not seen. A pericardial effusion is not seen. A lung consolidation is not present. A few areas of subsegmental atelectasis within the lung bases. Moderate COPD Fatty liver IMPRESSION: Negative for a pulmonary embolism. Moderate COPD
[2023-07-20] MEDS: DOXYCYCLINE 100 MG CAP PO SCH (10:39)
--- NOTE | 2023-07-20 11:34 | P.PN ---
Subjective Date of Service: 07/20/23 Chief Complaint: Acute respiratory distress Physical Examination - Vital Signs Temperature: 98.3 F Blood Pressure: 144/84 Pulse: 104 Respirations: 20 Pulse Ox (%): 94 - Studies Medications List Reviewed: Yes Assessment And Plan - Current Problems (Diagnosis) (1) Acute and chronic respiratory failure with hypoxia Current Visit: No Status: Acute Plan: Patient is 62 years of age with a history of terminal progressive COPD admitted with an exacerbation acute on chronic respiratory failure continue with bronchodilators steroids evaluate for NIV once stable labs chemistries reviewed chest x-ray COPD changes prognosis poor patient has been progressing unable to afford any long-acting bronchodilators at home blood pressure stable
[2023-07-20] MEDS: POTASSIUM CL SA 10 MEQ TAB PO ONE (14:45)
[2023-07-20] MEDS: POTASSIUM 25 MEQ EFFERV TAB PO ONE (17:46)
[2023-07-20] MEDS: IPRATROPIUM BROM 0.5MG/2.5ML NEB SCH (20:18)
[2023-07-20] MEDS: predniSONE 20 MG TAB PO SCH (20:50)
[2023-07-21] MEDS: ACETYLCYST 20% 4 ML VIAL IH SCH (09:00)
--- NOTE | 2023-07-21 09:24 | P.PN ---
Subjective Date of Service: 07/21/23 Chief Complaint: Acute respiratory distress Remains SOB with tight cough sometimes productive of thick phlegm. Sputum culture sent per pt report. Mucomyst nebs BID initiated. <Vicky Hernandez - Last Filed: 07/21/23 09:21> Date of Service: 07/21/23 <Tesha Moulton - Last Filed: 07/21/23 13:12> Review of Systems 10-point ROS is otherwise unremarkable Respiratory: Shortness of Breath, SOB with Excertion, Sputum, Wheezing, As per HPI Neurological: As per HPI <Vicky Hernandez - Last Filed: 07/21/23 09:21> Physical Examination - Vital Signs Temperature: 97.9 F Blood Pressure: 133/78 Pulse: 99 Respirations: 20 Pulse Ox (%): 96 - Physical Exam General: Alert, In no apparent distress, Oriented x3, Other (red faced) HEENT: Atraumatic, Normocephalic Neck: JVD not distended Respiratory: Crackles/rales, Expiratory wheezes, Inspiratory wheezes, Other (dry, grumbling harsh cough paroxysms) Cardiovascular: Normal pulses, Regular rate/rhythm Capillary refill: <2 Seconds Gastrointestinal: Soft and benign Musculoskeletal: No clubbing, No swelling Integumentary: No rashes, No breakdown Neurological: Normal speech, Normal tone External genitalia: Deferred Rectal: Deferred - Studies Microbiology Data (last 24 hrs): 07/17/23 15:38 Clean Catch Urine [place] Count - Final >100,000 CFU/ML. 07/17/23 15:38 Clean Catch Urine - Final Staph Epidermidis Medications List Reviewed: Yes <Vicky Hernandez - Last Filed: 07/21/23 09:21> - Studies Microbiology Data (last 24 hrs): 07/17/23 15:38 Clean Catch Urine [place] Count - Final >100,000 CFU/ML. 07/17/23 15:38 Clean Catch Urine - Final Staph Epidermidis <Tesha Moulton - Last Filed: 07/21/23 13:12> Assessment And Plan - Plan - Problems (Diagnosis) (1) Acute and chronic respiratory failure with hypoxia Current Visit: No Status: Acute (2) COPD with acute exacerbation Current Visit: No Status: Acute (3) Depression Current Visit: Yes Status: Acute Qualifiers: Depression Type: major depressive disorder - Plan Plan: -Acute hypoxic respiratory failure secondary to an acute COPD exacerbation; Plan: 1. Continue with albuterol and Atrovent nebs, 07/21/23 add Mucomyst BID 2. Continue with IV steroids and IV antibiotic 3. Repeat chest x-ray in the morning 4. Cough medication 5. Consult Dr. Vázquez -Depression Plan: Continue with antidepressant Discharge Plan: Home Plan to discharge in: Greater than 2 days - Advance Directives Does patient have a Living Will: No Does patient have a Durable POA for Healthcare: No - Code Status/Comfort Care Code Status Assessed: Yes Code Status: Full Code Critical Care: No <Vicky Hernandez - Last Filed: 07/21/23 09:21> - Plan Pt seen and examined. I agree with the note by the [employer] MANA[employer]. Continue steroid, abx, mucinex and oxygen. CXR has bibasilar opacities. <Tesha Moulton - Last Filed: 07/21/23 13:12>
--- NOTE | 2023-07-21 14:36 | EKG ---
Test Date: 2023-07-21 Test Time: 10:37:43 Account Solutions Analyst: KYLEE MEASUREMENT RESULTS: Intervals: Rate: 85 W[place]: 120 QRSD: 74 QT: 380 QTc: 452 [place]: P: 80 W[place]: 120 QRS: 76 T: 73 INTERPRETIVE STATEMENTS: Normal sinus rhythm Normal ECG Compared to ECG 07/17/2023 13:30:10 Sinus tachycardia no longer present Electronically Signed On 07-21-23 14:35:56 CDT by Brian Bingham
[2023-07-21] MEDS: GUAIFENESIN 600 MG SA TAB PO SCH (20:27)
[2023-07-22] MEDS: ALBUTEROL 2.5 MG/3 ML NEB SOL NEB PRN (02:19)
[2023-07-22 03:55] LABS: Absolute Eosinophils 0.1 K/uL (0-0.5); Absolute Lymphocytes (CBC) 1.1 K/uL (0.7-4.9); Absolute Monocytes 0.6 K/uL (0.1-1.3); Absolute Neutrophil 7.7 K/uL (1.8-8.0); Basophils % 0.1 % (0-1.3); Eosinophils % 0.6 % (0-4.4); Hematocrit 42.3 % (36.0-45.0); Hemoglobin 14.4 g/dL (12.0-15.0); Lymphocytes % 12.1 % (15.3-44.8); MCH 33.2 pg (27.0-35.0); MCHC 34.1 g/dL (32.0-36.0); MCV 97.4 fL (80-100); MPV 7.9 fL (7.6-11.3); Monocytes % 5.9 % (3.3-12.3); Neutrophils % 81.3 % (41.7-73.7); Nucleated Red Blood Cells % 0.1 % (0-0); Platelets 207 thou/uL (152-406); RBC Red Blood Cell Count 4.34 M/uL (3.86-4.86); Red Cell Distribution Width 12.2 % (12.1-15.2)
[2023-07-22 04:18] LABS: Anion Gap 3.4 mEq/L (5.0-15.0); Potassium 4.4 mEq/L (3.5-5.1)
[2023-07-22] MEDS: levoFLOXacin 750 MG TAB PO SCH (08:25)
[2023-07-22] MEDS: AZITHROMYCIN 250 MG TAB PO SCH ×2 (09:00→12:25)
[2023-07-22] MEDS: ROFLUMILAST 500 MCG TABLET PO SCH ×2 (09:00→12:21)
--- NOTE | 2023-07-22 09:45 | P.PN ---
Subjective Date of Service: 07/22/23 Chief Complaint: Acute respiratory distress Subjective: No new changes 07/21/23 Remains SOB with tight cough sometimes productive of thick phlegm. Sputum culture sent per pt report. Mucomyst nebs BID initiated. 07/22/23 fatigued, no more choking episodes on phlegm but paroxysms of cough have made her very tired. <Vicky Hernandez - Last Filed: 07/22/23 09:31> Date of Service: 07/22/23 <Tesha Moulton - Last Filed: 07/22/23 12:15> Review of Systems 10-point ROS is otherwise unremarkable General: As per HPI Respiratory: As per HPI Neurological: As per HPI <Vicky Hernandez - Last Filed: 07/22/23 09:31> Physical Examination - Vital Signs Temperature: 97.0 F Blood Pressure: 103/58 Pulse: 72 Respirations: 20 Pulse Ox (%): 98 - Physical Exam General: Alert, Mild distress HEENT: Mucous membr. moist/pink Respiratory: Expiratory wheezes, Inspiratory wheezes Cardiovascular: No edema Capillary refill: <2 Seconds Gastrointestinal: Soft and benign Musculoskeletal: No clubbing Integumentary: Other (flushed) Neurological: Normal speech, Normal tone Lymphatics: No axilla or inguinal lymphadenopathy External genitalia: Deferred Rectal: Deferred - Studies Microbiology Data (last 24 hrs): 07/17/23 15:38 Clean Catch Urine [place] Count - Final >100,000 CFU/ML. 07/17/23 15:38 Clean Catch Urine - Final Staph Epidermidis Medications List Reviewed: Yes <Vicky Hernandez - Last Filed: 07/22/23 09:31> Assessment And Plan - Plan - Problems (Diagnosis) (1) Acute and chronic respiratory failure with hypoxia Current Visit: No Status: Acute (2) COPD with acute exacerbation Current Visit: No Status: Acute (3) Depression Current Visit: Yes Status: Acute Qualifiers: Depression Type: major depressive disorder - Plan Plan: -Acute hypoxic respiratory failure secondary to an acute COPD exacerbation; Plan: 1. Continue with albuterol and Atrovent nebs, 07/21/23 add Mucomyst BID 2. Continue with IV steroids and IV antibiotic 3. Repeat chest x-ray in the morning 4. Cough medication 5. Consult Dr. Vázquez 6. 07/22/23 add inhaled steroids -Depression Plan: Continue with antidepressant Discharge Plan: Home Plan to discharge in: Greater than 2 days - Advance Directives Does patient have a Living Will: No Does patient have a Durable POA for Healthcare: No - Code Status/Comfort Care Code Status Assessed: Yes Code Status: Full Code Critical Care: No <Vicky Hernandez - Last Filed: 07/22/23 09:31> - Plan Pt seen and examined. I agree with the note by the CAN STERILIZER. She is still coughing. Will continue 2L BNC, steroid, doxy and oxygen. Consulted Pulm. <Tesha Moulton - Last Filed: 07/22/23 12:15>
--- NOTE | 2023-07-22 12:14 | P.PN ---
Subjective Date of Service: 07/22/23 Chief Complaint: COPD exacerbation No change in patient's current condition still complains of cough congestion shortness of breath Review of Systems General: Weakness Respiratory: Cough, Shortness of Breath Physical Examination - Vital Signs Temperature: 97.0 F Blood Pressure: 103/58 Pulse: 72 Respirations: 20 Pulse Ox (%): 98 - Physical Exam General: Alert, Oriented x3 Neck: Supple Respiratory: Clear to auscultation bilaterally, Diminished Cardiovascular: No edema, Regular rate/rhythm - Studies Medications List Reviewed: Yes Assessment And Plan - Current Problems (Diagnosis) (1) COPD with acute exacerbation Current Visit: No Status: Acute Plan: Patient admitted with COPD exacerbation very poor baseline progressive deterioration no change complaining of cough and congestion had a macrolide for anti-inflammatory purposes no relief with IV antibiotics or p.o. levofloxacin so far cultures are negative will also DC doxycycline Daliresp again
[2023-07-22] MEDS: IPRATROPIUM BROM 0.5MG/2.5ML NEB SCH (13:50)
[2023-07-22] MEDS: ALBUTEROL 2.5 MG/3 ML NEB SOL NEB SCH (13:50)
--- NOTE | 2023-07-22 14:31 | ECHO ---
HEIGHT: 5 ft 4 in WEIGHT: 150 lb 0.04 oz DATE OF STUDY: 07/22/[address]: Tasia Rosa MD 2-DIMENSIONAL: YES M.MODE: YES DOPPLER: YES COLOR FLOW: YES TDS: PORTABLE: YES DEFINITY: BUBBLE STUDY: DIAGNOSIS: DYSPNEA/ PERSISTENT CARDIAC HISTORY: CATHERIZATION: SURGERY: PROSTHETIC VALVE: PACEMAKER: MEASUREMENTS (cm) DIASTOLIC (NORMALS) SYSTOLIC (NORMALS) IVSd 0.8 (0.6-1.2) LA Diam 3.0 (1.9-4.0) LVEF 66% LVIDd 3.0 (3.5-5.7) LVIDs 2.0 (2.0-3.5) %FS 35% LVPWd 0.9 (0.6-1.2) Ao Diam 2.1 (2.0-3.7) 2 DIMENSIONAL ASSESSMENT: RIGHT ATRIUM: NORMAL LEFT ATRIUM: NORMAL RIGHT VENTRICLE: NORMAL LEFT VENTRICLE: NORMAL TRICUSPID VALVE: TRACE TRICUSPID REGURGITATION MITRAL VALVE: NORMAL PULMONIC VALVE: NORMAL AORTIC VALVE: NORMAL PERICARDIAL EFFUSION: TRIVIAL AORTIC ROOT: NORMAL LEFT VENTRICULAR WALL MOTION: NORMAL DOPPLER/COLOR FLOW: SEE BELOW COMMENTS: 1. POOR STUDY 2. LEFT VENTRICULAR EJECTION FRACTION IS NORMAL 60-65% 3. GRADE I DIASTOLIC DYSFUNCTION 4. TRACE TRICUSPID REGURGITATION TECHNOLOGIST: JENNIFER CAREY
[2023-07-22] MEDS: LACTOBACILLUS/ACIDOPHILUS TAB PO SCH (16:16)
[2023-07-22] MEDS ORDERED: BUDESONIDE 0.5 MG/2 ML NEB NEB SCH (19:00)
[2023-07-23 03:57] LABS: Absolute Eosinophils 0.1 K/uL (0-0.5); Absolute Lymphocytes (CBC) 1.2 K/uL (0.7-4.9); Absolute Monocytes 0.6 K/uL (0.1-1.3); Absolute Neutrophil 9.3 K/uL (1.8-8.0); Basophils % 0.1 % (0-1.3); Eosinophils % 0.9 % (0-4.4); Hematocrit 42.3 % (36.0-45.0); Hemoglobin 14.1 g/dL (12.0-15.0); Lymphocytes % 10.8 % (15.3-44.8); MCH 32.5 pg (27.0-35.0); MCHC 33.2 g/dL (32.0-36.0); MCV 97.9 fL (80-100); MPV 8.5 fL (7.6-11.3); Monocytes % 5.7 % (3.3-12.3); Neutrophils % 82.5 % (41.7-73.7); Platelets 191 thou/uL (152-406); RBC Red Blood Cell Count 4.32 M/uL (3.86-4.86); Red Cell Distribution Width 12.4 % (12.1-15.2)
[2023-07-23 04:28] LABS: Anion Gap 5.3 mEq/L (5.0-15.0); Potassium 4.3 mEq/L (3.5-5.1)
--- NOTE | 2023-07-23 09:45 | P.PN ---
Subjective Date of Service: 07/23/23 Chief Complaint: COPD exacerbation Subjective: Improving 07/21/23 Remains SOB with tight cough sometimes productive of thick phlegm. Sputum culture sent per pt report. Mucomyst nebs BID initiated. 07/22/23 fatigued, no more choking episodes on phlegm but paroxysms of cough have made her very tired. 07/23/23 a bit more tachypneic but cough is calmed, breath sounds without inspiratory wheeze today <Vicky Hernandez - Last Filed: 07/23/23 09:40> Date of Service: 07/23/23 <Tesha Moulton - Last Filed: 07/23/23 12:22> Review of Systems 10-point ROS is otherwise unremarkable General: As per HPI Respiratory: As per HPI <Vicky Hernandez - Last Filed: 07/23/23 09:40> Physical Examination - Vital Signs Temperature: 97.1 F Blood Pressure: 118/62 Pulse: 69 Respirations: 19 Pulse Ox (%): 97 - Physical Exam General: Alert, In no apparent distress, Oriented x3 HEENT: Atraumatic, Normocephalic Neck: JVD not distended Respiratory: Crackles/rales, Expiratory wheezes Cardiovascular: No edema Capillary refill: <2 Seconds Gastrointestinal: Soft and benign Musculoskeletal: No clubbing, No swelling Integumentary: No breakdown Neurological: Normal speech, Normal tone, Normal affect Lymphatics: No axilla or inguinal lymphadenopathy External genitalia: Deferred Rectal: Deferred - Studies Microbiology Data (last 24 hrs): 07/17/23 13:58 Blood - Blood Aerobic Blood Culture - Final No growth in 5 days. 07/17/23 13:58 Blood - Blood Anaerobic Blood Culture - Final No growth in 5 days. 07/17/23 13:44 Blood - Blood Aerobic Blood Culture - Final No growth in 5 days. 07/17/23 13:44 Blood - Blood Anaerobic Blood Culture - Final No growth in 5 days. Medications List Reviewed: Yes <Vicky Hernandez - Last Filed: 07/23/23 09:40> - Studies Microbiology Data (last 24 hrs): 07/17/23 13:58 Blood - Blood Aerobic Blood Culture - Final No growth in 5 days. 07/17/23 13:58 Blood - Blood Anaerobic Blood Culture - Final No growth in 5 days. 07/17/23 13:44 Blood - Blood Aerobic Blood Culture - Final No growth in 5 days. 07/17/23 13:44 Blood - Blood Anaerobic Blood Culture - Final No growth in 5 days. <Tesha Moulton - Last Filed: 07/23/23 12:22> Assessment And Plan - Plan - Problems (Diagnosis) (1) Acute and chronic respiratory failure with hypoxia Current Visit: No Status: Acute (2) COPD with acute exacerbation Current Visit: No Status: Acute (3) Depression Current Visit: Yes Status: Acute Qualifiers: Depression Type: major depressive disorder - Plan Plan: -Acute hypoxic respiratory failure secondary to an acute COPD exacerbation; Plan: Continue with albuterol and Atrovent nebs, 07/21/23 add Mucomyst BID, pt notes that she has only had one mucomyst tx. Will increase to TID Continue with IV steroids Cough medication Dr. Vázquez following 07/22/23 add inhaled steroids 07/23/23 neb and steroid adjustment per Dr. Vázquez -Depression Plan: Continue with antidepressant Discharge Plan: Home Plan to discharge in: Greater than 2 days - Advance Directives Does patient have a Living Will: No Does patient have a Durable POA for Healthcare: No - Code Status/Comfort Care Code Status Assessed: Yes Code Status: Full Code Critical Care: No <Vicky Hernandez - Last Filed: 07/23/23 09:40> - Plan Pt seen and examined. I agree with the note by the HISTORY CARD CLERK. Continue steroid, mucinex, abx, nebulizer and oxygen. Pulm is following. <Tesha Moulton - Last Filed: 07/23/23 12:22>
[2023-07-23] MEDS: ACETYLCYST 20% 4 ML VIAL IH SCH (14:08)
[2023-07-23] MEDS ORDERED: clonazePAM 1 MG TAB PO PRN (21:53)
[2023-07-24 03:44] LABS: Absolute Eosinophils 0.1 K/uL (0-0.5); Absolute Lymphocytes (CBC) 1.2 K/uL (0.7-4.9); Absolute Monocytes 0.7 K/uL (0.1-1.3); Absolute Neutrophil 12.2 K/uL (1.8-8.0); Basophils % 0.3 % (0-1.3); Hematocrit 43.6 % (36.0-45.0); Hemoglobin 14.4 g/dL (12.0-15.0); Lymphocytes % 8.6 % (15.3-44.8); MCH 32.6 pg (27.0-35.0); MCHC 33.1 g/dL (32.0-36.0); MCV 98.6 fL (80-100); MPV 8.4 fL (7.6-11.3); Neutrophils % 85.1 % (41.7-73.7); Platelets 195 thou/uL (152-406); RBC Red Blood Cell Count 4.42 M/uL (3.86-4.86); Red Cell Distribution Width 12.3 % (12.1-15.2)
[2023-07-24 04:00] LABS: Anion Gap 4.8 mEq/L (5.0-15.0); Potassium 4.8 mEq/L (3.5-5.1)
[2023-07-24 05:16] LABS: Band Neutrophils 2 % (0-1); Basophilic Stippling 1+; Blood Morphology Comment NOTED (NOT SEEN); Differential Total Cells Count 100; Eosinophils 2 % (0-3); Lymphocytes 18 % (15-42); Monocytes 6 % (0-10); Platelet Estimate ADEQ; Segmented Neutrophils 72 % (40-80)
--- NOTE | 2023-07-24 12:07 | P.PN ---
Subjective Date of Service: 07/24/23 Chief Complaint: COPD exacerbation Pt is resting comfortably in bed. She is feeling better this am. Still coughing but it non-productive. Pulm is following. No other issues overnight. Review of Systems Eyes: Unremarkable ENT: Unremarkable Respiratory: Cough, Shortness of Breath Cardiovascular: Unremarkable Gastrointestinal: Unremarkable Genitourinary: Unremarkable Musculoskeletal: Unremarkable Integumentary: Unremarkable Neurological: Unremarkable Lymphatics: Unremarkable Physical Examination - Vital Signs Temperature: 97.7 F Blood Pressure: 107/69 Pulse: 85 Respirations: 18 Pulse Ox (%): 97 - Physical Exam General: Alert, In no apparent distress, Oriented x3 HEENT: Atraumatic, Normocephalic, PERRLA Neck: Supple, 2+ carotid pulse no bruit Respiratory: Diminished, Expiratory wheezes Cardiovascular: No edema, Normal pulses, Regular rate/rhythm, Normal S1 S2 Capillary refill: <2 Seconds Gastrointestinal: Normal bowel sounds, Soft and benign, Non-distended Musculoskeletal: No clubbing, No swelling Integumentary: No rashes, No breakdown, No significant lesion Neurological: Normal speech, Normal strength at 5/5 x4 extr, Normal tone, Sensation intact Lymphatics: No axilla or inguinal lymphadenopathy - Studies Medications List Reviewed: Yes Assessment And Plan - Plan -Acute hypoxic respiratory failure secondary to an acute COPD exacerbation: Will continue albuterol and Atrovent nebs, 07/21/23 add Mucomyst TID, IV steroids and mucinex. Pulm is followng. Depression: Continue with antidepressant Dispo: Pending hospital course. Will dc once cleared by Pulm.
[2023-07-24] MEDS: DIPHENOX/ATROP SULF 1 TAB PO ONE ×2 (16:21→16:36)
[2023-07-24] MEDS: GUAIFENESIN 600 MG SA TAB PO SCH (20:05)
--- NOTE | 2023-07-25 09:35 | P.DS ---
Admission Date: 07/17/23 Discharge Date: 07/25/23 Reason for Admission: COPD exacerbation Consultations: Dr. Vázquez <Vicky Hernandez - Last Filed: 07/25/23 09:24> Admission Date: 07/17/23 Discharge Date: 07/25/23 Brief History of Present Illness: Ms. Alejandra is a 62 year old female with past medical history of COPD on home O2 at 3 L who presented to the emergency department with complaints of shortness of breath. She states that she has had some difficulty breathing, especially on exertion, for about the last week. She had to increase her O2 to 5L (typically uses 3L). She called her ornament setter to have called in an antibiotic and steroids along with an inhaler. She did not have the $400 to get her medications. She kept getting worse so she called EMS and she was brought into the emergency room where she was found to be hypoxic with an O2 sat in the 60s. Patient was given nebs, IV steroids, and IV antibiotics. Her oxygen saturations are improved on 5 L. She is currently satting 92% on 4 L. At this time, she will be admitted to the hospital for further evaluation and she is fairly tachypneic and oxygen requirements have increased. She states she gets severely short of breath just from ambulating. Her chest x-ray is concerning for an infiltrate. Patient will be admitted to the hospital for inpatient hospitalization for more aggressive treatment of her acute COPD. Pulmonary consultation will be pending as well. Hospital Course: 62 year old female with past medical history of COPD on home O2 at 3 L who presented to the emergency department with complaints of shortness of breath. She states that she has had some difficulty breathing, especially on exertion, Was noted to have COPD exacerbation. Pulmonary was consulted condition improved with nebulizers, steroids, oxygen, IV antibiotics. Patient tolerating diet, stable for discharge to home with follow-up appointment with primary care physician. Follow-up with ornament setter after discharge educated on respiratory medication compliance PROBLEM: COPD exacerbation Depression resume appropriate home Hyperlipidemia Rad/Lab/Micro: Chest x-ray FINDINGS: Mild opacities in both lung bases probably represents atelectasis. Trace bilateral pleural effusions. The heart is upper limit normal in size. No displaced fractures. <Tesha Moulton - Last Filed: 07/25/23 13:52> Disposition: ROUTINE DISCHARGE Discharge Condition: GOOD Vital Signs/Physical Exam: Temp Pulse Resp BP Pulse Ox 97.1 F 72 17 115/62 100 07/25/23 08:00 07/25/23 08:00 07/25/23 08:00 07/25/23 08:00 07/25/23 08:00 General: Alert, In no apparent distress, Oriented x3, Cooperative, Other (tired appearing) HEENT: Atraumatic, Normocephalic Neck: Supple Respiratory: Normal air movement, Other (greatly improved over admission, remains on 2.5L humidified O2 as at baseline) Cardiovascular: No edema Capillary refill: <2 Seconds Gastrointestinal: Soft and benign Musculoskeletal: No clubbing Integumentary: No rashes Neurological: Normal speech, Normal tone Lymphatics: No axilla or inguinal lymphadenopathy External genitalia: Deferred Rectal: Deferred Laboratory Data at Discharge: WBC 14.30 thou/uL (4.3-10.9) H 07/24/23 03:19 Hgb 14.4 g/dL (12.0-15.0) 07/24/23 03:19 Hct 43.6 % (36.0-45.0) 07/24/23 03:19 Plt Count 195 thou/uL (152-406) 07/24/23 03:19 PT 11.5 SECONDS (9.5-12.5) 07/17/23 13:44 INR 1.05 07/17/23 13:44 APTT 26.6 SECONDS (24.3-36.9) 07/17/23 13:44 Sodium 137 mEq/L (136-145) 07/24/23 03:19 Potassium 4.8 mEq/L (3.5-5.1) 07/24/23 03:19 BUN 14 mg/dL (7-18) 07/24/23 03:19 Creatinine 0.72 mg/dL (0.55-1.02) 07/24/23 03:19 Glucose 142 mg/dL (74-106) H 07/24/23 03:19 Phosphorus 2.9 mg/dL (2.5-4.9) 07/18/23 03:55 Magnesium 2.5 mg/dL (1.6-2.4) H 07/19/23 07:15 Total Bilirubin 0.3 mg/dL (0.2-1.0) 07/18/23 03:55 AST 37 U/L (15-37) 07/18/23 03:55 ALT 51 U/L (13-56) 07/18/23 03:55 Alkaline Phosphatase 86 U/L (45-117) 07/18/23 03:55 Triglycerides 57 mg/dL (<150) 07/18/23 03:55 Cholesterol 216 mg/dL (<200) H 07/18/23 03:55 HDL Cholesterol 62 mg/dL (40-60) H 07/18/23 03:55 Cholesterol/HDL Ratio 3.48 07/18/23 03:55 <Hernandez,Vicky Juan Carlos - Last Filed: 07/25/23 09:24> Vital Signs/Physical Exam: Temp Pulse Resp BP Pulse Ox 98.1 F 85 17 107/57 L 95 07/25/23 12:00 07/25/23 12:00 07/25/23 12:00 07/25/23 12:00 07/25/23 12:00 Laboratory Data at Discharge: WBC 14.30 thou/uL (4.3-10.9) H 07/24/23 03:19 Hgb 14.4 g/dL (12.0-15.0) 07/24/23 03:19 Hct 43.6 % (36.0-45.0) 07/24/23 03:19 Plt Count 195 thou/uL (152-406) 07/24/23 03:19 PT 11.5 SECONDS (9.5-12.5) 07/17/23 13:44 INR 1.05 07/17/23 13:44 APTT 26.6 SECONDS (24.3-36.9) 07/17/23 13:44 Sodium 137 mEq/L (136-145) 07/24/23 03:19 Potassium 4.8 mEq/L (3.5-5.1) 07/24/23 03:19 BUN 14 mg/dL (7-18) 07/24/23 03:19 Creatinine 0.72 mg/dL (0.55-1.02) 07/24/23 03:19 Glucose 142 mg/dL (74-106) H 07/24/23 03:19 Phosphorus 2.9 mg/dL (2.5-4.9) 07/18/23 03:55 Magnesium 2.5 mg/dL (1.6-2.4) H 07/19/23 07:15 Total Bilirubin 0.3 mg/dL (0.2-1.0) 07/18/23 03:55 AST 37 U/L (15-37) 07/18/23 03:55 ALT 51 U/L (13-56) 07/18/23 03:55 Alkaline Phosphatase 86 U/L (45-117) 07/18/23 03:55 Triglycerides 57 mg/dL (<150) 07/18/23 03:55 Cholesterol 216 mg/dL (<200) H 07/18/23 03:55 HDL Cholesterol 62 mg/dL (40-60) H 07/18/23 03:55 Cholesterol/HDL Ratio 3.48 07/18/23 03:55 <Tesha Moulton - Last Filed: 07/25/23 13:52> Diet: Low sodium Activity: Fall precautions <Vicky Hernandez - Last Filed: 07/25/23 09:24> <Tesha Moulton - Last Filed: 07/25/23 13:52> Home Medications: Fluoxetine HCl [Prozac] 40 mg PO DAILY 07/19/22 clonazePAM [Clonazepam] 1 mg PO TID PRN 07/19/22 Benzonatate 100 mg PO Q8H PRN 10 Days #30 tab 07/24/22 Albuterol Neb [Proventil 0.083% Neb Soln] 2.5 mg NEB [id number] PRN #60 amp 07/20/23 Arformoterol Tartrate [Brovana] 15 mcg NEB [id number] #60 vial.neb 07/20/23 Hydrocodone/Chlorphen Polis [Tussionex Oral Susp*] 5 ml PO BIDP PRN #100 ml 07/20/23 Ipratropium Neb [Atrovent*] 0.5 mg NEB [id number] #60 amp 07/20/23 Azithromycin Tab [Zithromax*] 500 mg PO DAILY 5 Days #5 tab 07/25/23 Fluconazole [Diflucan] 100 mg PO DAILY 10 Days #10 tab 07/25/23 Guaifenesin [Mucinex] 1,200 mg PO BID 10 Days #10 tab 07/25/23 Nystatin 6 ml PO QID #180 ml 07/25/23 Prednisone [Sterapred Ds] 10 mg PO DAILY 30 Days #30 tab 07/25/23 New Medications: Albuterol Neb [Proventil 0.083% Neb Soln] 2.5 mg NEB [id number] PRN #60 amp PRN Reason: Shortness Of Breath Ipratropium Neb [Atrovent*] 0.5 mg NEB [id number] #60 amp Arformoterol Tartrate [Brovana] 15 mcg NEB [id number] #60 vial.neb Fluconazole [Diflucan] 100 mg PO DAILY 10 Days #10 tab Guaifenesin [Mucinex] 1,200 mg PO BID 10 Days #10 tab Nystatin 6 ml PO QID #180 ml Prednisone [Sterapred Ds] 10 mg PO DAILY 30 Days #30 tab Hydrocodone/Chlorphen Polis [Tussionex Oral Susp*] 5 ml PO BIDP PRN #100 ml PRN Reason: Cough Azithromycin Tab [Zithromax*] 500 mg PO DAILY 5 Days #5 tab Physician Discharge Instructions: GOAL: Clear understanding of disease process INSTRUCTIONS: Physician Discharge Instructions: -Follow-up with PCP in 1 to 2 weeks -Follow-up with Pulmonary in 1 to 2 weeks -Please call nursing station at [phone] if any nursing or medication questions -Return to the emergency room if symptoms worsen Diet: ADA, low sodium Activity: Fall precautions Followup: Hector Vázquez MD [ACTIVE - CAN ADMIT] - TIFFANY YOUNGBLOOD [Primary Care Provider] -
[2023-07-25] MEDS: NYSTATIN 500,000 UNIT/5 ML UDC PO SCH (11:48)
[2023-07-25 12:23] VITALS: BP 107/57; TEMP 98.1
[2023-07-25 15:27] VITALS: O2SAT 95
--- NOTE | 2023-07-25 17:22 | P.PN ---
Subjective Date of Service: 07/25/23 Chief Complaint: COPD exacerbation Patient is improving now ambulating complaining of thrush Review of Systems General: Weakness Respiratory: Shortness of Breath Physical Examination - Vital Signs Temperature: 98.1 F Blood Pressure: 107/57 Pulse: 85 Respirations: 17 Pulse Ox (%): 95 - Physical Exam General: Alert, Oriented x3 Respiratory: Clear to auscultation bilaterally, Diminished Cardiovascular: No edema, Regular rate/rhythm - Studies Medications List Reviewed: Yes Assessment And Plan - Current Problems (Diagnosis) (1) COPD with acute exacerbation Status: Acute Plan: Patient COPD exacerbation currently patient is improving patient is also ambulating I suspect that she has significant thrush patient is currently stable for discharge continue with nebulizers low-dose prednisone 10 mg daily and that combination of Diflucan and nystatin for a severe oral thrush continua Zithromax 500 mg daily to prevent exacerbations for 7 to 10 daysAlso discharge patient on [place] continue with home bronchodilators follow up with me next week
[2023-07-26] MEDS ORDERED: FLUCONAZOLE 100 MG TAB PO SCH (09:00)
== END 2023-07-25 16:28 | disposition home or self-care (01) | DRG 189 ==
LOC: ER 13:17 → ERHOLD 16:57 → 4TH 17:33
PROVIDERS: ADMIT Hospitalist; ATTEND Hospitalist
PROC: 4A033R1 Measurement of Arterial Saturation, Peripheral, Percutaneous Approach (ICD-10-PCS; principal; 2023-07-17)
DX: J96.21 Acute and chronic respiratory failure with hypoxia (principal); J44.1 Chronic obstructive pulmonary disease with (acute) exacerbation; B37.0 Candidal stomatitis; N30.90 Cystitis, unspecified without hematuria; F32.9 Major depressive disorder, single episode, unspecified; Z88.0 Allergy status to penicillin; Z88.5 Allergy status to narcotic agent; Z88.2 Allergy status to sulfonamides; Z99.81 Dependence on supplemental oxygen; Z79.52 Long term (current) use of systemic steroids; Z79.899 Other long term (current) drug therapy; Z90.710 Acquired absence of both cervix and uterus; Z87.891 Personal history of nicotine dependence
CPT/HCPCS: 36415; 36600; 51702; 71045; 71275; 80048; 80053; 80061; 81001; 82805; 82947; 83605; 83735; 83880; 84100; 84484; 85025; 85610; 85730; 87040; 87070; 87077; 87086; 87088; 87186; 87205; 93005; 93306; 94668; 94760; 96365; 96366; 96375; 97116; 97161; 97530; 99285; J0692; J1650; J2001; J2919; J7030; J7512; J7605; J7608; J7613; J7626; J7644; Q9967

== ENCOUNTER 2023-12-12 23:50 | Inpatient (IN) | payer OTHER ==
--- OUTSIDE RECORDS SUMMARY | 2023-12-12 23:54 | XMS REPORT | Continuity of Care Document ---
Author Name Unknown Address [address] [facility]. [address] [place] [address] [facility] Address [address] [facility] [place] [address] Care Team Providers Care Inspector Type Name Role Phone Rodney POON, Natalia Calderon Attending Clinician Unavail able PERSON, JUAN CARLOS Attending Clinician Unavailable Anderson Saeed MD Attending Clinician [phone] Person Juan Carlos SOSA Attending Clinician [phone] PERSONJUAN CARLOS Admitting Clinician Unavailable Person Juan Carlos SOSA Admitting Clinician [phone] Payers Payer Name Policy Type Policy Number Effective Date Expirati on Date Source Problems Condition Name Condition Details Condition Category Status Onset Date Resolution Date Last Treatment Date Treating Clinician Comments Source Seizure Seizure Disease Active 11-26 00:00: 00 [facility] Trauma Trauma Disease Active 11-25 00:00: 00 [facility] Allergies, Adverse Reactions, Alerts Allergy Name Allergy Type Status Severity Reaction(s) Onset Date Inactive Date Treating Clinician Comments Source NO KNOWN ALLERGIE S Drug Class Active [facility] Social History Social Habit Start Date Stop Date Quantity Comments Source Gender identity [facility] Sexual orientation U [facility] History of tobacco use Passive smoker [facility] History of Social function 2022-11-27 00:00:00 2022-11-27 00:00:00 [facility] Tobacco Comment 2022-11-25 00:00:00 2022-11-25 00:00:00 Stopped smoking 9years ago [facility] Tobacco use and exposure 2022-11-25 00:00:00 2022-11-25 00:00:00 Smokeless tobacco non-user [facility] Sex Ass[birth year] At 1960 00:00:00 1960 00:00:00 [facility] Smoking Status Start Date Stop Date Source Ex-smoker 2022-11-25 00:00:00 2022-11-25 00:00:00 U [facility] Medications Ordered Medication Name Filled Medication Name Start Date Stop Date Current Medication? Ordering Clinician Indication Dosage Frequency Signature (SIG) Comments Components Source albuterol 90 mcg/actuati on inhaler 11-27 15:25: 11-27 00:00 :00 No 2{puff} Inhale 2 Puffs. [facility] clonazePAM 0.5 mg tablet 11-27 15:25: 11-27 00:00 :00 No 1.5mg Take 3 tablets by mouth. [facility] FLUoxetine 40 mg capsule 11-27 15:25: 11-27 00:00 :00 No 40mg Take 1 capsule by mouth in the morning. [facility] clonazePAM (KLONOPIN) tablet 1 mg 11-27 02:00: 00 Yes 1mg 1 mg, Oral, QHS, First dose on Fri11/26/22 at 2100, Until Discontinu ed, Routine [facility] levETIRAcet am (KEPPRA) tablet 750 mg 11-27 01:00: 00 Yes 750mg 750 mg, Oral, BID, First dose on Fri11/26/22 at 2000, Until Discontinu ed, Routine [facility] levETIRAcet am 750 mg tablet 11-27 00:00: 00 Yes [id number] 750mg Take 1 tablet by mouth in the morning and 1 tablet in the evening. [facility] albuterol 90 mcg/actuati on inhaler 11-27 00:00: 00 Yes 2{puff} Inhale 2 Puffs. [facility] albuterol (VENTOLIN) inhaler 2 Puff 11-26 21:37: 38 Yes 2{puff} 2 Puff, Inhalation , Q6HPRN, Starting on Fri11/26/22 at 1637, Until Discontinu ed, Routine, Wheezing, Shortness of Breath [facility] gadobenate dimeglumine (MULTIHANCE -15 mL) injection 14.3 mL 11-26 17:45: 00 11-26 17:45 :00 No [id number] .2mL/kg 14.3 mL (0.2 mL/kg ?71.5 kg), Intravenou s, ONCE, 1 dose, On Fri11/26/22 at 1245, Routine [facility] enoxaparin (LOVENOX) injection 30 mg 11-26 16:15: 00 Yes 30mg 30 mg, Subcutaneo us, Q12H, First dose (after last modificati on) on Fri11/26/22 at 1115, Until Discontinu ed, Routine [facility] pantoprazol e (PROTONIX) injection 40 mg 11-26 14:00: 00 11-27 18:32 :59 No 40mg 40 mg, Slow IV Push, Q24H, First dose on Fri11/26/22 at 0900, Until Discontinu ed [facility] methocarbam oL (ROBAXIN) injection 1,000 mg 11-26 11:00: 00 11-26 18:27 :07 No 1000mg 1,000 mg, Intravenou s, Q8H, First dose on Fri11/26/22 at 0600, Until Discontinu ed, Routine [facility] levETIRAcet am (KEPPRA) in NACL (ISO-OS) 500 mg/100 mL RTU 11-26 11:00: 00 11-26 13:00 :55 No 500mg 500 mg, IV Piggyback, Q12H, First dose on Fri11/26/22 at 0600, Until Discontinu ed, Administer over 15 Minutes, 100 mL [facility] LORazepam (ATIVAN) injection 2 mg 11-26 00:45: 00 11-26 01:00 :00 No 2mg 2 mg, Slow IV Push, ONCE, 1 dose, On Fri11/25/22 at 2000, JESSICA [facility] iopamidol (ISOVUE 370-500 mL) injection 90 mL 11-26 00:30: 00 11-26 00:30 :00 No [id number] 90mL 90 mL, Intravenou s, ONCE, 1 dose, On Fri11/25/22 at 1930, Routine [facility] LORazepam (ATIVAN) injection 2 mg 11-26 00:15: 00 11-25 23:22 :00 No 2mg 2 mg, Slow IV Push, ONCE, 1 dose, On Fri11/25/22 at 1915, STAT [facility] LORazepam (ATIVAN) injection 2 mg 11-26 00:00: 00 11-25 23:03 :00 No 2mg 2 mg, Slow IV Push, ONCE, 1 dose, On Fri11/25/22 at 1900, Routine [facility] levETIRAcet am (KEPPRA) in NACL (ISO-OS) 1,000 mg/100 mL RTU 11-26 00:00: 00 11-25 23:19 :00 No 1000mg 1,000 mg, IV Piggyback, ONCE, 1 dose, On Fri11/25/22 at 1900, Administer over 15 Minutes, 100 mL [facility] lactated ringers IV infusion 1,000 mL 11-25 23:45: 00 11-26 18:27 :07 No 1000mL at 125 mL/hr, 1,000 mL, IV Infusion, CONTINUOUS , Starting on Fri11/25/22 at 1845, Until Fri11/26/22 at 1327, Routine [facility] levETIRAcet am (KEPPRA) 750 mg in NaCl 0.9% (NS) 100 mL IV infusion 11-25 23:38: 00 11-26 00:34 :00 No 750mg 750 mg, IV Piggyback, ONCE, 1 dose, On Fri11/25/22 at 1845, Administer over 15 Minutes, 100 mL [facility] oxazepam (SERAX) capsule 15 mg 11-25 23:33: 06 Yes 15mg 15 mg, Oral, Q4HPRN, Starting on Fri11/25/22 at 1833, Until Discontinu ed, Routine, Only while awake for DBP equal to or greater than 100, HR equal to or greater than 100. [facility] ondansetron (ZOFRAN (PF)) injection 4 mg 11-25 23:29: 34 Yes 4mg 4 mg, Slow IV Push, Q6HPRN, Starting on Fri11/25/22 at 1829, Until Discontinu ed, Routine, Nausea and Vomiting (N/V) [facility] acetaminoph en (TYLENOL) tablet 650 mg 11-25 23:29: 34 Yes 650mg 650 mg, Oral, Q6HPRN, Starting on Fri11/25/22 at 1829, Until Discontinu ed, Routine, Pain (scale 1-3) [facility] ondansetron (ZOFRAN (PF)) injection 4 mg 11-25 23:00: 00 11-25 22:52 :00 No 4mg 4 mg, Slow IV Push, ONCE, 1 dose, On Fri11/25/22 at 1800, JESSICA [facility] predniSONE 10 mg tablet 11-12 00:00: 00 11-27 00:00 :00 No 10mg Take 1 tablet by mouth in the morning. [facility] Vital Signs Vital Name Observation Time Observation Value Comments S ourjuan Systolic blood pressure 2022-11-27 17:27:00 105 mm[Hg] [facility] Diastolic blood pressure 2022-11-27 17:27:00 70 mm[Hg] [facility] Heart rate 2022-11-27 17:27:00 68 /min [facility] Body temperature 2022-11-27 17:27:00 36.56 Arabella [facility] Respiratory rate 2022-11-27 17:27:00 16 /min [facility] Oxygen saturation in Arterial blood by Pulse oximetry 2022-11-27 17:27:00 99 /min [facility] Body height 2022-11-26 01:34:00 162.6 cm [facility] Body weight 2022-11-26 01:34:00 71.5 kg [facility] BMI 2022-11-26 01:34:00 27.06 kg/m2 [facility] Procedures Procedure Date / Time Performed Performing Clinician Source VITAMIN B12, LEVEL 2022-11-27 09:37:00 Kim Shin [facility] FOLATE 2022-11-27 09:37:00 Kim Shin Jyotsna [facility] BASIC METABOLIC PANEL (NA, K , CL, CO2, GLUCOSE, BUN, CREATININE, CA) 2022-11-27 09:37:[address] [facility] CBC WITHOUT DIFF 2022-11-27 09:37:[address] [facility] MR BRAIN W WO CONTRAST WITH NEUROQUANT 2022-11-26 16:15:00 DominicOzzie mahoney [facility] PROLACTIN 2022-11-26 01:26:00 Michael Lopez [facility] URINE DRUG (IMMUNOASSAY) - COMPREHENSIVE DRUG SCREEN 2022-11-26 01:26:00 Ruby Valdez [facility] MRSA / MSSA SCREEN BY AKASH PATEL 2022-11-26 01:26:00 Angelica Nickerson [facility] ELECTROENCEPHALOGRAM 2022-11-26 00:00:00 Ruby Valdez [facility] CT TRAUMA THORAX W CONTRAST 2022-11-25 23:29:52 Michael Lopez [facility] CT TRAUMA THORACIC SPINE WO CONTRAST 2022-11-25 23:29:52 Michael Lopez [facility] CT TRAUMA ABDOMEN PELVIS W CONTRAST 2022-11-25 23:29:52 Michael Lopez [facility] CT TRAUMA LUMBAR SPINE WO CONTRAST 2022-11-25 23:29:52 Michael Lopez [facility] CT TRAUMA HEAD WO CONTRAST 2022-11-25 23:03:32 Michael Lopez [facility] CT TRAUMA CERVICAL SPINE WO CONTRAST 2022-11-25 23:03:32 Michael Lopez [facility] LIPASE 2022-11-25 22:43:00 Person, [facility] COMP. METABOLIC PANEL ([id number]) 2022-11-25 22:43:00 Person, [facility] ETHANOL 2022-11-25 22:43:00 Anderson Saeed [facility] CBC WITHOUT DIFF 2022-11-25 22:43:00 Person, [facility] PROTHROMBIN TIME / INR 2022-11-25 22:43:00 Person, [facility] ACTIVATED PARTIAL THRMPLAS DIEGO 2022-11-25 22:43:00 Person, [facility] HB ABO GROUPING 2022-11-25 22:43:00 Person, [facility] HOSPITAL ADMISSION 2022-11-25 05:01:00 Doctor Unassigned, Potter [facility] Encounters Start Date/Time End Date/Time Encounter Type Admission Type Attending [facility] Care Department Encounter ID Source 2023-08-18 10:46:37 2023-08-18 10:46:37 Outpatient SFA SFA [id number] Felipe Dhaliwal Zane 2023-05-29 15:56:17 2023-05-29 15:56:17 Outpatient SFA SFA [id number] Felipe Dhaliwal Zane 2023-05-14 16:54:30 2023-05-14 16:54:30 Outpatient SFA SFA [id number] Felipe Dhaliwal Zane 2023-05-06 10:29:22 2023-05-06 10:29:22 Outpatient SFA SFA [id number] Felipe Dhaliwal Zane 2023-01-29 14:22:19 2023-01-29 14:22:19 Outpatient SFA SFA [id number] Felipe Degroot 2022-12-26 13:05:49 2022-12-26 13:05:49 Outpatient [facility] [id number] Felipe Degroot 2022-11-28 00:00:00 2022-11-28 00:00:00 Transition of Care Natalia Stevens [id number] [facility] 2022-11-25 17:41:00 2022-11-27 21:20:00 Inpatient ANIL OLIVEIRASHUA [facility] STR [id number] [facility] 2022-11-25 17:41:00 2022-11-27 21:20:00 [facility] [id number] [facility] 2022-07-30 11:31:31 2022-07-30 11:31:31 Outpatient [facility] [id number] Felipe Degroot 2022-06-28 13:13:24 2022-06-28 13:13:24 Outpatient [facility] [id number] Felipe Degroot Results Test Description Test Time Test Comments Results Result Co mments Source [facility] 23:12:17* Test Item Value Reference Range Interpretation Comme nts NA (test code = 6503796621) 133 mmol/L 135-145 L K (test code = 7528374475) 5.0 mmol/L 3.5-5.0 CL (test code = 9289697431) 96 mmol/L 98-108 L CO2 TOTAL (test code = 7097492939) 22 mmol/L 23-31 L AGAP (test code = 4646786600) 15 2-16 BUN (test code = 2609109090) 7 mg/dL 7-23 GLUCOSE (test code = 3067126153) 122 mg/dL 70-110 H CREATININE (test code = 2978701198) 0.50 mg/dL 0.50-1.04 TOTAL BILI (test code = 4803798370) 0.6 mg/dL 0.1-1.1 CALCIUM (test code = 2621981391) 8.6 mg/dL 8.6-10.6 T PROTEIN (test code = 1358587175) 7.1 g/dL 6.3-8.2 ALBUMIN (test code = 1267283741) 4.8 g/dL 3.5-5.0 ALK PHOS (test code = 3728550014) 84 U/L 34-122 ALTv (test code = 1742-6) 44 U/L 5-35 H AST(SGOT) (test code = 6042321303) 47 U/L 13-40 H eGFR (test code = 6624887255) 124.6 mL/min/1.73m2 CHARO (test code = CHARO) [...] imaging tests). Lab Interpretation (test code = 39173-7) [facility]normal [facility] 23:12:17* Test Item Value Reference Range Interpretation Comme nts LIPASE (test code = 2637190406) 159 U/L 0-220 Lab Interpretation (test cod e = 18241-3) Normal [facility] CenterProthrombin Time / [id number] 23:06:36* Test Item Value Reference Range Interpretation Comme nts PROTIME PATIENT (test code = 5964-2) 11.2 See_Comment [Automated messa ge] The system which generated this result transmitted reference range: 10.1 - 12.6 Seconds. The reference range was not used to interpret this result as normal/abnormal. INR (test code = 6301-6) 1.0 Normal INR <1.1; Warfarin Therapeutic range 2.0 to 3.0 or 2.5 to 3.5, depending upon the indications. Lab Interpretation (test code = 43548-6) Normal [facility] CenteraPTT2023-09-11 23:06:36* Test Item Value Reference Range Interpretation Comme nts APTT Patient (test code = 3173-2) 31 See_Comment [Automated messa ge] The system which generated this result transmitted reference range: 26 - 36 Seconds. The reference range was not used to interpret this result as normal/abnormal. Lab Interpretation (test code = 41702-4) Normal [facility] CenterCBC Without [id number] 23:02:55* Test Item Value Reference Range Interpretation Comme [facility] WBC (test code = 6690-2) 11.53 [...] result as normal/abnormal. MPV (test code = 94403-5) 10.0 fL 9.5-12.9 RDW-CV (test code = 788-0) 11.9 % 12.0-15.5 L RDW-SD (test code = 45957-3) 41.9 fL 39.0-49.9 NRBC x10^3 (test code = 8096545946) See_Comment [Automated messa ge] The system which generated this result transmitted reference range: 10*3/?L. The reference range was not used to interpret this result as normal/abnormal. NRBC/100 WBC (test code = 4881378364) 0.0 See_Comment [Automated [facility] ge] The system which generated this result transmitted reference range: 0.0 - 10.0 /100 WBCs. The reference range was not used to interpret this result as normal/abnormal. IPF % (test code = 9627251592) Lab Interpretation (test code = 28273-4) Abnormal [facility] Center[facility] Screen - The Type and Screen [...] POSITIVE IAT (test code = 1185) Negative [facility] CenterCULTURE, [id number] 15:39:28SPECIMEN NUMBER: [id number] CULTURE, URINE SPECIMEN NUMBER: [id number] SPECIMEN COMMENT: URINE SOURCE: URINE REPORT STATUS: FINAL ISOLATE NUMBER 1: ORGANISM: 06/30/2022 >100,000 CFU/ML ENTEROCOCCUS SPECIES (GROUP D) IDENTIFICATION: 07/01/2022 ENTEROCOCCUS SPECIES (GROUP D) ENTEROCOCCUS SP. AMPICILLIN SENSITIVE <=2CIPROFLOXACIN INTERMED 2LEVOFLOXACIN SENSITIVE 2NITROFURANTOIN IN TERMED 64TETRACYCLINE SENSITIVE <=1VANCOMYCIN SENSITIVE 1 NOTE: NUMBERS DISPLAYED REPRESENT MINIMUM INHIBITORY CONCENTRATION (YOSEF) WHICH IS EXPRESSED IN MCG/ML. [facility] has important pathology staff changes effective 05/15/2022. New pathology staff will provide uninterrupted, excellent patient care and clinical consultation. See URL: [email or web address]. UNLESS OTHERWISE INDICATED, ALL TESTING PERFORMED AT [facility] [address] [place] [address] ASSISTANT FRONT DESK MANAGER: PATRICK ORTIZ M.D. CLIA NUMBER [id number] [facility] [place]. [id number] II PROFILE (TU,T4,FTI,TSH)2022-06-29 06:14:53* Test Item Value Reference Range Interpretation Comme [facility] T-UPTAKE (test code = 2817) 30.2 % 24.3-39.0 THYROX. BIND. CAPAC. (test c ode = 77913) 1.1 0.8-1.3 T4 (THYROXINE) (test code = 2819) 6.3 UG/DL 4.5-10.5 CORRECTED T4 (FTI) (test cod e = 2820) 5.7 UG/DL 4.2-11.6 TSH, THIRD GENERATION (test code = 2821) 1.130 UIU/ML 0.400-4.100 VITAMIN [id number] 06:14:53* Test Item Value Reference Range Interpretation Comme [facility] VITAMIN B-12 (test code = 2840) 530 PG/ML 200-950 VITAMIN D, 25 [id number] 05:57:16* Test Item Value Reference Range Interpretation Comme [facility] VITAMIN D, 25 OH (test code [...] . . . . . NG/ML 30-100 [facility] has important pathology staff changes effective 05/15/2022. New pathology staff will provide uninterrupted, excellent patient care and clinical consultation. See URL: [email or web address]. UNLESS OTHERWISE INDICATED, ALL TESTING PERFORMED AT [facility] [address] [place] [address] ASSISTANT FRONT DESK MANAGER: PATRICK ORTIZ M.D. CLIA NUMBER [id number] [facility] [place]. [id number] COMPREHENSIVE METABOLIC [id number] 05:02:48* Test Item Value Reference Range Interpretation Comme nts GLUCOSE (test code = 2217) 144 MG/DL 70-99 H BUN (test code = 2208) 6 MG/DL 8-23 L CREATININE (test code = 2214) 0.74 MG/DL 0.60-1.30 eGFR (2020 CKD-EPI) (test code = 81977) 91 ML/MIN/1.73 >60 CALC BUN/CREAT (test code [...] as normal/abnormal. ALKALINE PHOSPHATASE (test code = 4) 110 U/L 40-140 AST (test code = 8) 64 U/L 9-40 H ALT (test code = 2219) 58 U/L 5-40 H LIPID [id number] 05:02:48* Test Item Value Reference Range Interpretation [...] SPECIMENS. FOR MOREINFORMATION, SEE CLIENT ANNOUNCEMENT AT [email or web address] RISK RATIO LDL/HDL (test code = 2238) 2.60 RATIO <3.22 HEMOGLOBIN [id number] 04:06:39* Test Item Value Reference Range Interpretation Comme [facility] HEMOGLOBIN A1c (test code = 56005) 5.4 % 4.2-5.6 CBC W/AUTO DIFF WITH [id number] 01:56:03* Test Item Value Reference Range Interpretation [...] 0.00-0.10 ABS NUCLEATED RBCS (test code = 53804) 0.00 K/UL 0.00-0.11 Consult Notes Date/Time Note Provider Source 2022-11-25 19:49:00 Associated Order(s): CONSULT NEUROLOGY GENERAL NEUROLOGY CONSULT NOTE DATE OF SERVICE: 11/25/2022 REQUESTING PHYSICIAN: Michael Lopez MD Reason for Consult: Seizure episodes. HISTORY OF PRESENT ILLNESS Mrs. Oakley is a 61-year-old woman with Hx of 3 seizure episodes (unknown circumstances), who is admitted to trauma after a fall from bar stool while drinking excessively. While in the ER, she had an episode of seizure and received 2 mg ativan, followed by return to awareness then a second episode during CTH aborted by ativan 2 mg, followed by a third episode after being transferred to the ICU aborted by ativan 2 mg. She was loaded with 1.75 g of Keppra while in the ER. Patient was providing minimal hx after receiving ativan, therefore, hx supplemented from chart and primary team. PAST MEDICAL HISTORY No past medical history on file. PAST SURGICAL HISTORY No past surgical history on file. FAMILY HISTORY No family history on file. SOCIAL HISTORY Social History Tobacco Use Smoking status: [...] mg IV Piggyback DAILY ALLERGY No Known Allergies REVIEW OF SYSTEMS General: (-) fever, (-) chills, (-) weight change, (-) dizziness, (-) fatigue, (-) change in appetite Skin: (-) rash, (-) lesion HEENT: (-) headache, (-) change in hearing, (-) change in vision, (-) nasal discharge, (-) sore throat Neck: (-) pain, (-) difficulty swallowing, (-) mass Heme: (-) bleeding disorder Resp: (-) cough, (-) shortness of breath, (-) dyspnea on exertion Cardio: (-) chest pain, (-) palpitations, (-) syncope GI: (-) abdominal pain, (-) nausea, (-) vomiting, (-) diarrhea, (-) constipation, (-) melena, (-) hematochezia, (-) hematemesis : (-) dysuria, (-) hematuria, (-) increased frequency, (-) difficulty urinating, (-) difficulty initiating Endo: (-) heat intolerance, (-) diabetes, (-) cold intolerance, (-) polyuria, (-) polydipsia, (-) renal insufficiency, (-) thyroid disease Neuro: See HPI Back: (-) pain, (-)spasms AYSE: (-) muscle pain, (-) joint pain, (-) claudication Psych: (-) anxiety, (-) depression, (-) psychiatric disorder PHYSICAL EXAM Vitals: 11/26/22 0300 11/26/22 0400 11/26/22 [...] Stays focused and on task while being questioned. Speech/ Language: intact to comprehension, fluency, repetition and naming. Fund of knowledge: is congruent with level of education. Remote and recent memory: normal, can recall recent and distant memories Cranial Nerves: I. Not tested. II. PERRL. FOV full to confrontation. III. IV., . Extraocular movements intact without nystagmus. V. Normal sensation in V1-3 distributions. VII. No facial droop noted. VIII. Hearing intact. IX., X. Palatal elevation and gag response present symmetrically. XI. Normal Strength of sternocleidomastoid and trapezius muscles bilaterally. XII. Tongue in midline. Motor: Tone: normal Bulk: normal STRENGTH Right Left Deltoid 5 5 Biceps 5 5 Triceps 5 5 Wrist extensors 5 5 Interossei 5 5 Hip flexors 5 5 Knee flexors (hamstring) 5 5 Knee extensors (quadriceps) 5 5 Ankle dorsiflexors 5 5 Ankle plantar flexors 5 5 DTR's: Right Left Bicep 2+ 2+ Triceps 2+ 2+ Brachioradialis 2+ 2+ Patella 2+ 2+ Achilles 2+ 2+ Pathologic reflexes and signs: Bowling: absent Plantar response: mute Cerebellar: Nystagmus: neg, FTN: nl, HTS:nl, Tremors: neg, Rapid alternating movements: normal Sensory: LT: intact, temperature: intact, PP: intact, proprioception: intact, Vibration: intact Gait: Deferred HEENT: pupils equal, round, reactive to light; extraocular movements intact; oropharynx clear; moist mucous membranes Lungs: clear to auscultation bilaterally Cardio: S1, S2 normal Extremities:no cyanosis,clubbing or edema Neck:supple,no carotid bruit,no JVD Abdomen: soft; non-tender; non-distended LABS Recent Results (from the past 24 hour(s)) [...] /100 WBCs IPF % CMP Collection Time: 09/11/23 5:43 PM Result Value Ref Range NA [...] 19.6 ng/mL RADIOLOGY CT TRAUMA THORAX W CONTRAST Result Date: 11/25/[address] evidence of intra-thoracic or intra-abdominal traumatic injury. Hepatic steatosis Preliminary Report Dictated by Resident: Soco Dan MD., have reviewed this study and agree with the above report. CT TRAUMA ABDOMEN PELVIS W CONTRAST Result Date: 11/25/[address] evidence of intra-thoracic or intra-abdominal traumatic injury. Hepatic steatosis Preliminary Report Dictated by Resident: Soco Dan MD., have reviewed this study and agree with the above report. CT TRAUMA THORACIC SPINE WO CONTRAST Result Date: 11/25/2022 No acute fracture or traumatic malalignment of the thoracic or lumbar spine. Preliminary Report Dictated by Resident: Brook Bertrand MD., have reviewed this study and agree with the above report. CT TRAUMA LUMBAR SPINE WO CONTRAST Result Date: 11/25/2022 No acute fracture or traumatic malalignment of the thoracic or lumbar spine. Preliminary Report Dictated by Resident: Brook Bertrand MD., have reviewed this study and agree with the above report. CT TRAUMA HEAD WO CONTRAST Result Date: 11/25/2022 No acute intracranial hemorrhage or mass effect. No acute cervical spine fracture or traumatic malalignment. Preliminary Report Dictated by Resident: Brook Dan MD., have reviewed this study and agree with the above report. CT TRAUMA CERVICAL SPINE WO CONTRAST Result Date: 11/25/2022 No acute intracranial hemorrhage or mass effect. No acute cervical spine fracture or traumatic malalignment. Preliminary Report Dictated by Resident: Brook Dan MD., have reviewed this study and agree with the above report. ASSESSMENT AND RECOMMENDATIONS Mrs. Oakley is a 61-year-old woman with Hx of 3 seizure episodes (unknown circumstances), who is admitted to trauma after a fall from bar stool while drinking excessively. Given previous seizure episodes, recommend obtaining seizure workup with MRI brain wwo and EEG and starting Keppra maintenance 750 BID after load of 1.75 g (all ordered). Alcohol level >200, making alcohol induced seizure a likely diagnosis. Our impression is: Previous seizure episodes Current seizure episodes Alcohol induced seizures vs seizure disorder - MRI brain wwo contrast - Spot EEG - Maintenance Keppra 750 BID Discussed with primary team, Neurology will: continue to follow. Case was discussed with Dr. Gonzalez, neurology faculty, and will be seen in the morning. Neurology Consult Pager: [phone] Ruby Valdez MD Neurology resident Associated attestation - Guilherme Gonzalez MD - 11/26/2022 9:15 PM CDT Case d/w Dr. Valdez last night, and I saw and examined the patient with neurology consult on 11/26/2022. I agree with the findings and plans as outlined in the resident note. I actively participated in the decision making process and formulated the plan with the resident. Guilherme Gonzalez M.D., Ph.D., FAAN, SURYA Professor, Neurology [facility] - Health History and Physical Notes Date/Time Note Provider Source 2022-11-25 18:58:33 Formatting of this n ote is different from the original. Images from the original note were not included. TRAUMA SURGERY HISTORY AND PHYSICAL Date of Service: 11/25/22 ATTENDING PHYSICIAN: Pashto Chief complaint: HISTORY OF MECHANISM OF INJURY Patient was drinking at a bar at 1 PM today, a dog had its leash wrapped around the stool she was on and when it began to run away, the stool slid under her and she fell. + HS + LOC. GCS 9 on the field. Patient was life flighted from Date of Injury- 11/25/22 Time of Injury- precise time unknown Patient was taken to the CT scanner after a reassuring primary survey and presented an episode of tonic-clonic seizures while in the Ct scanner. 2 mg Ativan was administered. PRIMARY SURVEY/RESUSCITATION Vitals: Temp: [37 ?C (98.6 ?F)] Heart Rate (monitor): [84-88] Pulse: [84-104] Resp: [16-21] BP: (108-155)/(70-88) MAP (mmHg): [82-92] Vitals: 11/25/22 1755 11/25/22 1810 11/25/22 1825 11/25/22 1840 BP: 138/79 120/78 114/70 108/75 Pulse: 98 84 86 84 Resp: Temp: TempSrc: SpO2: 95% 100% 99% 99% Weight: Height: Airway: Patent Comment- Breathing: Bilateral breath sounds equal Circulation: Radial pulses present and equal and Pedal pulses present and equal Disability: Glascow Coma Scale: Glascow Coma Scale Eye Opening: Spontaneous= 4 Best Verbal Response: Confused= 4 Best Motor Response: Obeys command= 6 TOTAL: 14 Pupils: Equal/reactive and 3 mm Exposure: SECONDARY SURVEY/PHYSICAL EXAM 1. HEAD a. Inspect and palpate scalp and [...] and pelvis for tenderness and/or fractures. Normal FAST Negative HISTORY ALLERGIES: No Known Allergies MEDICATIONS: Home Medications: (Not in a hospital admission) Hospital Medications: Current Facility-Administered Medications Medication Dose Route Frequency [...] No current outpatient medications on file. Levalbuterol inhaler Prednisone 10 mg BID PAST MEDICAL HISTORY: No problems updated. No past medical history on file. COPD on home oxygen 3 L NC, evaluated for lung transplant previously Remote history of seizures. PAST SURGICAL HISTORY: No past surgical history on file. Hysterectomy 1980s FAMILY HISTORY: No family history on file. SOCIAL [...] on file Review of Systems: As per HPI Estimated Weight: Vitals: 11/25/22 1737 Weight: 79.4 kg (175 lb) Lab Results: Labs (last 24 hours): Chemistry CBC LFTs Coags, other 133 (L) 96 [...] - CK: - CKMB: - Ethanol level 212 Radiology Results: CT TRAUMA THORACIC SPINE WO CONTRAST Result Date: 11/25/2022 No acute fracture or traumatic malalignment of the thoracic or lumbar spine. Preliminary Report Dictated by Resident: Brook Bertrand MD., have reviewed this study and agree with the above report. CT TRAUMA LUMBAR SPINE WO CONTRAST Result Date: 11/25/2022 No acute fracture or traumatic malalignment of the thoracic or lumbar spine. Preliminary Report Dictated by Resident: Brook Bertrand MD., have reviewed this study and agree with the above report. CT TRAUMA HEAD WO CONTRAST Result Date: 11/25/2022 No acute intracranial hemorrhage or mass effect. No acute cervical spine fracture or traumatic malalignment. Preliminary Report Dictated by Resident: Brook Dan MD., have reviewed this study and agree with the above report. CT TRAUMA CERVICAL SPINE WO CONTRAST Result Date: 11/25/2022 No acute intracranial hemorrhage or mass effect. No acute cervical spine fracture or traumatic malalignment. Preliminary Report Dictated by Resident: Brook Dan MD., have reviewed this study and agree with the above report. ASSESSMENT/INJURY BURDEN: Denise Oakley is a 61 year old female presenting as a trauma eval after fall from [facility] . On arrival to ED patient , Primary survey was stable. Trauma clinical examination and ancillary studies support the following injury burden: Head and Face: No injuries Neck: No injuries Thorax: No injuries Abdomen and Pelvis: No injuries Spine: No injuries Extremities: No injuries External/other: No injuries Additionally, patient presented seizure activity in the ED during evaluation. PLAN: - Three doses 2 mg ativan were given in ED - Neurology was consulted due to seizures, please see their separately written recommendations - Admit to Neuro ICU, tertiary in AM. Cervical collar at all times due to acute intoxication -1L LR, maintenance fluids, thiamine IV. -Keppra 1.75 g loading dose, 500 mg bid maintenance Pt seen and discussed with faculty, Dr. Saeed. Michael Todd MD PGY- 1 General Surgery Associated attestation - Anderson Saeed MD - 11/26/2022 6:45 AM CDT Attending I personally examined the patient on 11/25/22 and agree with the Resident note by Dr. Jerad Todd as written. I actively participated in the decision-making process. Please see the note for additional details. The history and physical exam and medical decision making was directed by me. Briefly, 61 year old female presenting as a trauma eval after fall from barstool . PROBLEMS: Acute fall complicated by seizures and EtOH intoxication Review and interpretation of tests New tests ordered Discussed with Neurology (external provider) High (H) risk indicated by Other extenuating risks including recurrent seizures (major)(H) History of/underlying No past medical history on file. PLAN: - Ativan - Neurology consult - Admit to Neuro ICU, tertiary in AM. -1L LR, maintenance fluids, thiamine IV. -Keppra CPT: [id number] Anderson Saeed MD Trauma/Acute Care Surgery Faculty JIMENA-SURGERY [facility] - Health Notes Date/Time Note Provider Source 2022-11-28 16:12:17 Formatting of this n ote is different from the original. TRANSITIONAL CARE MANAGEMENT ASSESSMENT 11/28/2022 Denise Oakley [id number] Denise Oakley is a 61 year old /White female was admitted on 11/25/[address] She was discharged on 11/27/22 with discharge disposition of HR- Routine Discharge. Admitting Physician: Juan Carlos Alford Discharge Diagnosis: Trauma Linked Episodes Type: Episode: Status: Noted: Resolved: Last update: Updated by: TRANSITION OF CARE TCM Active 11/27/2022 11/28/2022 4:10 PM Natalia Stevens, RN Comments: TCM Men-tdhd-hv-face outreach documentation: Discharge Assessment Chart Assessed: 11/28/22 TCM Outreach Completed: 11/28/22 Do you have a few minutes to speak with me about how you are doing at home?: Yes (pt reports she is doing ok and denies having any questions/concerns at this time.) Discharge Instructions Do you understand your at-home instructions?: Yes Medications Have you filled your prescriptions and do you have them in your home? 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) Do you know how to take your medications?: Yes Can you provide me with the names or descriptions of any [id number] or supplements you are currently taking?: Yes Supplies Did you receive applicable home medical supplies/equipment?: N/A Follow Up Appointment Has a follow up appointment been scheduled?: No May I assist with scheduling this appointment?: Patient has outside PCP Do you have any questions about your follow up appointments?: No Home Health Assistance Has the home health nurse contacted you since you've been home?: N/A Survey - Recognition Is there anything you would like to share about your recent hospitalization, or anyone you would like to recognize?: No Do you have any suggestions for improvement?: No Do you have any other questions or concerns at this time?: No Future Appointments: Natalia Stevens RN [facility] 2022-11-27 00:00:24 Formatting of this n ote might be different from the original. Problem: Seizures, Risk of / or Actual Goal: Absence of injury related to seizure activity Outcome: Progressing as expected Goal: Absence of seizure activity Outcome: Progressing as expected Problem: Discharge Planning Goal: Adequate for discharge Outcome: Progressing as expected Goal: Effective communication Outcome: Progressing as expected Problem: Falls, Risk of Goal: Absence of falls Outcome: Progressing as expected Problem: Mental Status - Impaired, Risk of Goal: Mental status restored to baseline Outcome: Progressing as expected Goal: Absence of physical injury Outcome: Progressing as expected Problem: Pain Goal: Control of pain at or below patient's documented comfort goal Outcome: Progressing as expected Goal: Reduction in pain sensation Outcome: Progressing as expected Problem: Respiratory Function - Impaired Goal: Adequate oxygenation Outcome: Progressing as expected Goal: Adequate work of breathing Outcome: Progressing as expected Mayco Abdalla RN [facility] 2022-11-26 08:39:55 Formatting of this n ote might be different from the original. Problem: Seizures, Risk of / or Actual Goal: Absence of injury related to seizure activity Outcome: Progressing as expected Goal: Absence of seizure activity Outcome: Progressing as expected Problem: Discharge Planning Goal: Adequate for discharge Outcome: Progressing as expected Goal: Effective communication Outcome: Progressing as expected Problem: Falls, Risk of Goal: Absence of falls Outcome: Progressing as expected Problem: Mental Status - Impaired, Risk of Goal: Mental status restored to baseline Outcome: Progressing as expected Goal: Absence of physical injury Outcome: Progressing as expected Problem: Pain Goal: Control of pain at or below patient's documented comfort goal Outcome: Progressing as expected Goal: Reduction in pain sensation Outcome: Progressing as expected Problem: Respiratory Function - Impaired Goal: Adequate oxygenation Outcome: Progressing as expected Goal: Adequate work of breathing Outcome: Progressing as expected Glendy Stauffer RN [facility] 2022-11-26 01:44:18 Formatting of this n ote might be different from the original. Problem: Seizures, Risk of / or Actual Goal: Absence of injury related to seizure activity Outcome: Progressing as expected Goal: Absence of seizure activity Outcome: Progressing as expected Problem: Discharge Planning Goal: Adequate for discharge Outcome: Progressing as expected Goal: Effective communication Outcome: Progressing as expected Problem: Falls, Risk of Goal: Absence of falls Outcome: Progressing as expected Problem: Mental Status - Impaired, Risk of Goal: Mental status restored to baseline Outcome: Progressing as expected Goal: Absence of physical injury Outcome: Progressing as expected Problem: Pain Goal: Control of pain at or below patient's documented comfort goal Outcome: Progressing as expected Goal: Reduction in pain sensation Outcome: Progressing as expected Problem: Respiratory Function - Impaired Goal: Adequate oxygenation Outcome: Progressing as expected Goal: Adequate work of breathing Outcome: Progressing as expected [facility] 2022-11-25 19:59:06 Formatting of this n ote might be different from the original. Patient transported to [facility] with ED RNx2 and trauma team for continuous monitoring. Patient remains on BP, O2, laboratory monitor during transport. Zoll monitor and ambu bag present on ED stretcher. Patient in kassandra collar, breathing even/unlabored, in NAD. Patient stable for transport at this time. Tiffanie Mason RN [facility] 2022-11-25 19:50:21 Formatting of this n ote might be different from the original. Patient noted to be having seizure at this time. x 2 at bedside. 2mg ativan given per verbal order at this time. Patient to be transported to ICU at this time. Cherie Robbins RN [facility] 2022-11-25 19:34:31 Formatting of this n ote might be different from the original. Report called to 8A RN. Plan of care reviewed, all questions answered. Patient updated on plan of care. Transport requested via tele track. [facility] 2022-11-25 19:00:00 Formatting of this n ote might be different from the original. Report received from Zahra RN and Ailyn RN. Patient resting in stretcher with kassandra collar in place, on NRB, GCS 12, oriented to self, eyes open to verbal, RR E/U. Trauma team at bedside. Will call report [facility] 2022-11-25 18:56:13 Formatting of this n ote might be different from the original. Attempted to call 8A for report, daysmary lou RN refusing report at this time as they are still in shift change. Will try again. [facility] 2022-11-25 18:40:54 Formatting of this n ote might be different from the original. Neuro bedside. [facility] 2022-11-25 18:22:00 Formatting of this n ote might be different from the original. Pt witnessed with seizure like acitivity in CT, pt given 2mg ativan and pt rolled and brought back to room 105 on 15L NRB. [facility] 2022-11-25 18:10:36 Formatting of this n ote might be different from the original. Pt back to CT via stretcher with c-collar in place on 15L NRB [facility] 2022-11-25 18:03:59 Formatting of this n ote might be different from the original. Pt has returned to room [address] Wood[address] Dr[address] Shin bedside [facility] 2022-11-25 18:02:00 Formatting of this n ote might be different from the original. Pt seizing in CT. CT stopped, pt rolled onto side and 2mg ativan given per verbal order [facility] 2022-11-25 17:56:43 Formatting of this n ote might be different from the original. Dr. Arauz states to hold LR bolus due to CHF T [facility] 2022-11-25 17:51:00 Formatting of this n ote might be different from the original. Pt actively vomiting in CT, 4mg zofran IV verbal order per Dr. Arauz given. [facility] 2022-11-25 17:48:00 Formatting of this n ote might be different from the original. Pt transported to CT via stretcher on bedside monitor with c-collar. Back board removed in CT by trauma doctor [facility] 2022-11-25 17:45:00 Formatting of this n ote might be different from the original. Denise Oakley is a 61 year old [...] NC, to room 105 for trauma eval. [facility] 2022-11-25 17:43:28 Formatting of this n ote might be different from the original. FAST negative per Dr. Kan [facility]
[2023-12-13] MEDS ORDERED: METHYLPREDNISOLONE 125 MG INJ ONE (00:56)
[2023-12-13] MEDS ORDERED: ONDANSETRON 4 MG/2 ML VIAL ONE (00:56)
[2023-12-13] MEDS ORDERED: CEFTRIAXONE 1000 MG/VIAL ONE (00:56)
[2023-12-13] MEDS ORDERED: IPRATROPIUM BROM 0.5MG/2.5ML ONE ×2 (00:56→02:46)
[2023-12-13] MEDS ORDERED: ALBUTEROL 2.5 MG/3 ML NEB SOL ONE ×2 (00:56→02:46)
[2023-12-13] MEDS ORDERED: THIAMINE 200 MG/2 ML INJ ONE (00:57)
[2023-12-13] MEDS ORDERED: LORazepam 2 MG/ML VIAL ONE (00:57)
[2023-12-13] MEDS ORDERED: METOCLOPRAMIDE 10 MG/2mL INJ ONE (00:57)
[2023-12-13] MEDS ORDERED: NA CHLORIDE 0.9% 50 ML ONE (00:58)
[2023-12-13] MEDS ORDERED: NA CHLORIDE 0.9% 1,000 ML ONE (00:58)
[2023-12-13] MEDS ORDERED: MORPHINE 2 MG/ML SYR ONE (00:58)
[2023-12-13 01:07] LABS: PT Prothrombin Time 11.2 SECONDS (9.4-12.5)
[2023-12-13 01:11] LABS: Absolute Eosinophils 0.4 K/uL (0-0.5); Absolute Lymphocytes (CBC) 2.2 K/uL (0.7-4.9); Absolute Monocytes 0.6 K/uL (0.1-1.3); Absolute Neutrophil 5.8 K/uL (1.8-8.0); Basophils % 0.3 % (0-1.3); Eosinophils % 4.6 % (0-4.4); Hematocrit 45.2 % (36.0-45.0); Hemoglobin 15.3 g/dL (12.0-15.0); Lymphocytes % 24.5 % (15.3-44.8); MCH 32.6 pg (27.0-35.0); MCHC 33.8 g/dL (32.0-36.0); MCV 96.6 fL (80-100); MPV 7.7 fL (7.6-11.3); Monocytes % 6.2 % (3.3-12.3); Neutrophils % 64.4 % (41.7-73.7); Nucleated Red Blood Cells % 0.2 % (0-0); Platelets 188 thou/uL (152-406); RBC Red Blood Cell Count 4.68 M/uL (3.86-4.86); Red Cell Distribution Width 12.4 % (12.1-15.2)
[2023-12-13 01:26] LABS: ALT/SGPT 30 U/L (13-56); Albumin 3.9 g/dL (3.4-5.0); Albumin/Globulin Ratio 1.1 (1.1-1.8); Alkaline Phosphatase 104 U/L (45-117); BUN Blood Urea Nitrogen 6 mg/dL (7-18); Bicarbonate 28 mEq/L (21-32); Bilirubin Total 0.2 mg/dL (0.2-1.0); Globulin 3.4 g/dL (2.3-3.5); Glomerular Filtration Rate 96 ml/min (=/>90); Glucose Level 100 mg/dL (74-106); NT PRO-BNP 72 pg/mL (<125); Protein, Total 7.3 g/dL (6.4-8.2); Sodium Level 136 mEq/L (136-145); Troponin High Sensitivity 4.1 pg/mL (<58.9)
[2023-12-13 01:35] LABS: AST/SGOT 30 U/L (15-37); Bilirubin Direct < 0.2 mg/dL (0-0.2); Magnesium 2.4 mg/dL (1.6-2.4)
[2023-12-13 02:59] LABS: SARS-CoV-2 Antigen CONTROL BLUE LINE VIS/BG OK; SARS-CoV-2 Antigen Rapid Res Negative (Negative)
--- NOTE | 2023-12-13 03:08 | P.HP ---
Certification for Inpatient Patient admitted to: Inpatient With expected LOS: <2 Midnights Practitioner: I am a practitioner with admitting privileges, knowledge of patient current condition, hospital course, and medical plan of care. Services: Services provided to patient in accordance with Admission requirements found in Title 42 Section 412.3 of the Code of Federal Regulations Patient History Date of Service: 12/13/23 Reason for admission: COPD exacerbation History of Present Illness: Patient is 63 years of age well-known to me has been sick for about 2 weeks complaining of increasing cough shortness of breath ended up in the hospital with COPD exacerbation alcohol level was elevated patient is compliant with her medications Allergies Penicillins Allergy (Verified 07/19/22 21:14) Anaphylaxis Sulfa (Sulfonamide Antibiotics) Allergy (Verified 07/19/22 21:14) Hives/Rash Home Medications: Fluoxetine HCl [Prozac] 40 mg PO DAILY 07/19/22 clonazePAM [Clonazepam] 1 mg PO TID PRN 07/19/22 Fluticasone Propion/Salmeterol [Fluticasone-Salmeterol 113-14] 1 puff IH BID 08/10/23 Ipratropium/Albuterol Sulfate [Combivent Respimat 20-100 Mcg] 4 gm IH QID 08/10/23 predniSONE [Prednisone] 10 mg PO DAILY 08/10/23 Albuterol Neb [Proventil 0.083% Neb Soln] 2.5 mg NEB [id number] PRN #60 amp 08/13/23 Arformoterol Tartrate [Brovana] 15 mcg NEB BIDRESP #60 vial.neb 08/13/23 Hydrocodone/Chlorphen Polis [Tussionex Oral Susp*] 5 ml PO BID PRN #100 ml 08/13/23 Ipratropium Neb [Atrovent*] 0.5 mg NEB [id number] #60 amp 08/13/23 Nebulizer 1 each MC DAILY #1 ea 08/13/23 Nebulizer Accessories [Aeroneb Go] 1 each MC DAILY #1 ea 08/13/23 Roflumilast [Daliresp*] 250 mcg PO DAILY #15 tab 08/13/23 levoFLOXacin [Levaquin*] 750 mg PO DAILY #5 tab 08/13/23 predniSONE [Deltasone] 20 mg PO BID #20 tab 08/13/23 - Past Medical/Surgical History Diabetic: No -: COPD on home O2 -: Depression -: Anxiety -: -: Hysterectomy Psychosocial/ Personal History: Patient is . She has a son. - Family History Sister -: Heart disease Father -: Lung disease - Social History Alcohol use: Yes CD- Drugs: No Caffeine use: Yes Review of Systems 10-point ROS is otherwise unremarkable General: Weakness Respiratory: Cough, Shortness of Breath Physical Examination - Studies Laboratory Data (last 24 hrs) 12/13/23 12/13/23 12/13/23 00:45 00:45 00:45 WBC 9.00 Hgb 15.3 H Hct 45.2 H Plt Count 188 PT 11.2 INR 1.00 Sodium 136 Potassium 4.0 BUN 6 L Creatinine 0.69 Glucose 100 Magnesium 2.4 Total Bilirubin 0.2 AST 30 ALT 30 Alkaline Phosphatase 104 Microbiology Data (last 24 hrs): 12/13/23 01:35 Nasopharnyx Influenza Type A Antigen Screen - Final 12/13/23 01:35 Nasopharnyx Influenza Type B Antigen Screen - Final Assessment and Plan - Problems (Diagnosis) (1) COPD with acute exacerbation Current Visit: No Status: Acute Plan: Patient is 63 years of age well-known to me admitted with COPD exacerbation has been sick for about 2 weeks patient compliant with the nebulizers does take low- dose prednisone at home has been having chronic persistent cough will admit to the hospital chest x-ray is clear labs unremarkable lactic acid is mildly elevated will start patient on p.o. levofloxacin bronchodilation steroids patient has significant amount of anxiety depression Discharge Plan: Home Plan to discharge in: 48 Hours - Advance Directives Does patient have a Living Will: No Does patient have a Durable POA for Healthcare: No
[2023-12-13] MEDS ORDERED: levoFLOXacin 250 MG TAB PO ONE (03:15)
--- NOTE | 2023-12-13 03:40 | EDPHYS ---
Physician Documentation [facility] Name: Denise Alejandra Age: 63 yrs Sex: Female : 1960 Arrival Date: 12/12/2023 Time: 23:50 Bed 15 Private MD: ED Physician Chin Terrazas HPI: 12/12 00:14 This 63 yrs old Female presents to ER via EMS with complaints of Productive sp4 Cough, Shortness Of Breath. 00:14 . sp4 03:39 63-year-old female with past medical history of COPD, presents with acute worsening sp4 shortness of breath also cough congestion and yellow sputum for the past 2 weeks. Patient's medications include fluoxetine, clonazepam, fluticasone, salmeterol, ipratropium, albuterol, prednisone, albuterol, arformoterol or Brovana, hydrocodone, ipratropium, Daliresp, . Historical: - Allergies: 00:13 Sulfa (Sulfonamide Antibiotics); rg5 00:13 PENICILLINS; rg5 00:13 Codeine; rg5 - PMHx: 00:13 Anxiety; COPD; Home O2 via NC (COPD); rg5 - PSHx: 00:13 section; rg5 - Immunization history:: Adult Immunizations not up to date. - Infectious Disease History:: Denies. - Social history:: Smoking status: Patient denies any tobacco usage or history of. - Family history:: not pertinent. ROS: 03:39 Constitutional: Negative for fever, chills, and weight loss, positive for shortness sp4 of breath cough congestion, positive for yellow sputum 03:39 All other systems are negative, Exam: 02:35 ECG was reviewed by the Attending Physician. EKG at 0005 , EKG reveals sinus rhythm at sp4 74 otherwise normal. 03:39 Constitutional: This is a well developed, well nourished patient who is awake, alert, sp4 acutely distressed secondary to vomiting shortness of breath and cough. Head/Face: Normocephalic, atraumatic. Eyes: Pupils equal round and reactive to light, extra-ocular motions intact. Lids and lashes normal. Conjunctiva and sclera are not injected. Cornea within normal limits. Periorbital areas with no swelling, redness, or edema. ENT: Nares patent. No nasal discharge, no septal abnormalities noted. Tympanic membranes are normal and external auditory canals are clear. Oropharynx with no redness, swelling, or masses, exudates, or evidence of obstruction, uvula midline. Mucous membranes moist. Neck: Trachea midline, no thyromegaly or masses palpated, and no cervical lymphadenopathy. Supple, full range of motion without nuchal rigidity, or vertebral point tenderness. Chest/axilla: Normal chest wall appearance and motion. Nontender with no deformity. No lesions are appreciated. Cardiovascular: Regular rate and rhythm with a normal S1 and S2. No gallops, murmurs, or rubs. Normal PMI, no JVD. No pulse deficits. Respiratory: Lungs have equal breath sounds bilaterally, clear to auscultation and percussion. No rales, rhonchi or wheezes noted. No increased work of breathing, no retractions or nasal flaring. Abdomen/GI: Soft, with normal bowel sounds. No distension or tympany. No guarding or rebound. No evidence of tenderness throughout. Back: No spinal tenderness. No costovertebral tenderness. Skin: Warm, dry with normal turgor. Normal color with no rashes, no lesions, and no evidence of cellulitis. MS/ Extremity: Pulses equal, no cyanosis. Neurovascular intact. Full, normal range of motion. Neuro: Awake and alert, GCS 15, oriented to person, place, time, and situation. Cranial nerves II-XII grossly intact. Motor strength 5/5 in all extremities. Sensory grossly intact. Psych: Awake, alert, with orientation to person, place and time. Behavior, mood, and affect are within normal limits Vital Signs: 00:00 BP 143 / 84; Pulse 81; Resp 23; Temp 97.6(O); Pulse Ox 93% on 3 lpm NC; Weight 67.59 rg5 kg; Height 5 ft. 3 in. ; 00:13 BP 143 / 84; Pulse 81; Resp 23; Temp 97.6; Pulse Ox 93% on 3 lpm NC; rg5 01:25 BP 121 / 79; Pulse 83; Resp 19; Pulse Ox 97% on 3 lpm NC; rg5 02:11 BP 118 / 76; Pulse 86; Resp 18; Pulse Ox 100% on 3 lpm NC; rg5 03:02 BP 120 / 80; Pulse 88; Resp 19; Pulse Ox 99% on 3 lpm NC; Pain 0/10; rg5 04:00 BP 133 / 79; Pulse 75; Resp 19; Temp 98(O); Pulse Ox 99% on 3 lpm NC; rg5 05:12 BP 102 / 74; Pulse 77; Resp 18; Pulse Ox 98% on 3 lpm NC; rg5 00:00 Body Mass Index 26.39 (67.59 kg, 160.02 cm) 5 03:02 Pain Scale: Adult rg5 [place] Coma Score: 03:39 Eye Response: spontaneous(4). Motor Response: obeys commands(6). Verbal Response: sp4 oriented(5). Total: 15. MDM: 00:04 Patient medically screened. kb 02:41 ED course: CLINICAL HISTORY: CHEST PAIN. COMPARISON: Chest radiograph from December 292021. TECHNIQUE: Single view AP chest radiograph(s). FINDINGS: Suspected summation artifact in the medial right lung base, unchanged from prior. No pulmonary infiltrate or edema identified. No pleural effusion. No pneumothorax. Non enlarged cardiomediastinal silhouette. No significant osseous abnormality. IMPRESSION: No acute cardiopulmonary abnormality identified by radiograph. . 03:39 Differential Diagnosis: Obstructed Airway Bronchitis Influenza Upper Respiratory sp4 Infection Sinusitis Viral Syndrome Pneumonia. Data reviewed: vital signs, nurses notes, EMS record, lab test result(s), EKG, radiologic studies, plain films. Consideration of Admission/Observation Escalation of care including admission/observation considered. 12/12 00:14 Order name: SARS RAPID [facility] 12/12 00:14 Order name: Influenza Screen (a \T\ B); Complete Time: 02:40 [facility] 12/12 00:22 Order name: Basic Metabolic Panel; Complete Time: 02: [facility] 12/12 00:22 Order name: CBC with Diff; Complete Time: 02: [facility] 12/12 00:22 Order name: LFT's; Complete Time: 02: [facility] 12/12 00:22 Order name: Magnesium; Complete Time: : [facility] 12/12 00:22 Order name: NT PRO-BNP; Complete Time: 02: [facility] 12/12 00:22 Order name: PT-INR; Complete Time: 02: [facility] 12/12 00:22 Order name: Troponin HS; Complete Time: 02:33 4 12/12 00:22 Order name: Alcohol Level; Complete Time: 02:33 4 12/12 00:23 Order name: Blood Culture Adult (2) [facility] 12/12 00:24 Order name: Lactate w/ 2H reflex if indic.; Complete Time: 02:33 4 12/12 03:07 Order name: Basic Metabolic Panel [facility] 12/12 03:07 Order name: Basic Metabolic Panel [facility] 12/12 03:07 Order name: CBC with Automated Diff [facility] 12/12 03:07 Order name: CBC with Automated Diff [facility] 12/12 03:07 Order name: Lipid Profile [facility] 12/12 03:07 Order name: Lipid Profile [facility] 12/12 03:22 Order name: Ghost Lactate-NO COLLECT Timer [facility] 12/12 00:22 Order name: XRAY Chest (1 view) [facility] 12/12 00:22 Order name: Cardiac monitoring; Complete Time: 00:27 [facility] 12/12 00:22 Order name: EKG - Nurse/Tech; Complete Time: 00:23 [facility] 12/12 00:22 Order name: IV Saline Lock; Complete Time: 00:28 [facility] 12/12 00:22 Order name: Labs collected and sent; Complete Time: 01:19 [facility] 12/12 00:22 Order name: O2 Per Protocol; Complete Time: 00:28 [facility] 12/12 00:22 Order name: O2 Sat Monitoring; Complete Time: 00:28 4 EC:35 Rate is 74 beats/min. Rhythm is regular, Normal Sinus Rhythm. QRS [place] is Normal. [place] sp4 interval is normal. QRS interval is normal. QT interval is normal. No Q waves. T waves are Normal. No ST changes noted. Clinical impression: Normal ECG. Interpreted by me. Reviewed by me. Administered Medications: 00:45 Drug: Ondansetron IVP 8 mg IVP once; over 2 minutes Route: IVP; Site: left antecubital; rg5 02:43 Follow up: Response: No adverse reaction rg5 00:45 Drug: MethylPrednisoLONE IVP 125 mg IVP once Route: IVP; Site: right forearm; rg5 02:44 Follow up: Response: No adverse reaction rg5 00:45 Drug: Albuterol Inhalation 2.5 mg Inhalation once Route: Inhalation; rg5 00:50 Drug: Ipratropium Inhalation Aerosol 0.5 mg Inhalation once Route: Inhalation; rg5 00:55 Drug: morphine IVP or IV 2 mg IVP once over 4 mins Route: IVP; Infused Over: 4 mins; rg5 Site: right hand; 02:44 Follow up: Response: No adverse reaction; Pain is decreased rg5 01:00 Drug: NS 0.9% IV 1000 ml IV at 75 ml/hr continuous Route: IV; Rate: 75 ml/hr; Site: rg5 right hand; 03:45 Follow up: IV Status: Infusion continued upon admission; IV Intake: 500ml rg5 01:00 Drug: Ativan IVP 1 mg IVP once Route: IVP; Site: left antecubital; rg5 02:43 Follow up: Response: No adverse reaction rg5 01:00 Drug: Rocephin - Rocephin (cefTRIAXone) IVPB 1 grams IVPB once over 30 mins; (mix in 50 rg5 mL NS) Route: IVPB; Infused Over: 30 mins; Site: right hand; 03:41 Follow up: IV Status: Completed infusion; IV Intake: 50ml rg5 01:15 Drug: Thiamine IV 100 mg IV at bolus once Route: IV; Rate: bolus; Site: left rg5 antecubital; 03:42 Follow up: Response: No adverse reaction; IV Status: Completed infusion rg5 01:18 Drug: metoCLOPramide IVP 10 mg IVP once; over 1 to 2 minutes Route: IVP; Site: left rg5 antecubital; 02:44 Follow up: Response: No adverse reaction rg5 02:45 Drug: Albuterol Inhalation 2.5 mg Inhalation once Route: Inhalation; rg5 02:45 Drug: Ipratropium Inhalation Aerosol 0.5 mg Inhalation once Route: Inhalation; rg5 Disposition Summary: 12/13/23 03:39 Hospitalization Ordered Notes: Hospitalization Status: Inpatient Admission sp4 Provider: Hector Vázquez Location: Telemetry/[facility] (Inpatient) sp4 Condition: Stable sp4 Problem: new sp4 Symptoms: have improved sp4 Bed/Room Type: Standard sp4 Room Assignment: 230(12/13/23 03:56) af3 Diagnosis - COPD/ Chronic obstructive pulmonary disease with (acute) exacerbation sp4 Discharge Instructions: - Discharge Summary Sheet af3 Forms: - Medication Reconciliation Form sp4 - Leadership Thank You Letter sp4 - SBAR form af3 Signatures: Dispatcher [employer] EDMS Sammie Serrano, FLIGHT ENGINEER HELICOPTER-Chin Anderson MD MD sp4 Darian Hoffman RN RN rg5 Alivia Gardner af3 Corrections: (The following items were deleted from the chart) 00:15 00:15 SARS-COV-2 Antigen Rapid+I.LAB.BRZ ordered. EDMS EDMS 00:15 00:15 Influenza Screen (A \T\ B)+BA.LAB.BRZ ordered. EDMS EDMS 03:56 03:39 sp4 af3
--- NOTE | 2023-12-13 03:40 | ER ---
Nurse's Notes [facility] Name: Denise Alejandra Age: 63 yrs Sex: Female : 1960 Arrival Date: 12/12/2023 Time: 23:50 Bed 15 Private MD: Diagnosis: COPD/ Chronic obstructive pulmonary disease with (acute) exacerbation Presentation: 12/12 00:00 Chief complaint: EMS states: friends of patient called because she passed out and rg5 having shortness of breath, while in route she was awake but unresponsive for about 5 mins. We ask her if she remembers anything and and she didn't recall anyting. She had a history of COPD was using a portable oxygen that broke earlier around 7pm. 00:00 Coronavirus screen: Vaccine status: Patient reports being unvaccinated. Client denies rg5 travel out of the [place] in the last 14 days. Ebola Screen: Patient negative for fever greater than or equal to 101.5 degrees Fahrenheit, and additional compatible Ebola Virus Disease symptoms. Initial Sepsis Screen: Does the patient meet any 2 criteria? No. Patient's initial sepsis screen is negative. Does the patient have a suspected source of infection? No. Patient's initial sepsis screen is negative. Risk Assessment: Do you want to hurt yourself or someone else? Patient reports no desire to harm self or others. Onset of symptoms was December 13, 2023. Care prior to arrival: Medication(s) given: zofran 4 mg, IV initiated. 20 GA, in the left antecubital area, Oxygen administered. via nasal cannula. 00:00 Method Of Arrival: EMS: [facility] 00:00 Acuity: JONI 3 rg5 Triage Assessment: 00:13 General: Appears uncomfortable, Behavior is calm, cooperative, appropriate for age. rg5 Pain: Denies pain. EENT: No deficits noted. Neuro: Level of Consciousness is awake, alert, obeys commands, Oriented to person, place, time. Cardiovascular: Patient's skin is warm and dry. Rhythm is sinus rhythm. Respiratory: Reports shortness of breath cough that is productive, Airway is patent Trachea midline Respiratory effort is even, Respiratory pattern is regular, Breath sounds with wheezes bilaterally. Onset: The symptoms/episode began/occurred just prior to arrival, the patient has mild shortness of breath. GI: Abdomen is round Abd is soft and non tender. : No signs and/or symptoms were reported regarding the genitourinary system. Derm: Skin is intact, Skin is dry, Skin is normal, Skin temperature is warm. Musculoskeletal: Circulation, motion, and sensation intact. Range of motion: intact in all extremities. Historical: - Allergies: 00:13 Sulfa (Sulfonamide Antibiotics); rg5 00:13 PENICILLINS; rg5 00:13 Codeine; rg5 - PMHx: 00:13 Anxiety; COPD; Home O2 via [place] (COPD); rg5 - PSHx: 00:13 section; rg5 - Immunization history:: Adult Immunizations not up to date. - Infectious Disease History:: Denies. - Social history:: Smoking status: Patient denies any tobacco usage or history of. - Family history:: not pertinent. Screenin:00 [facility] ED Fall Risk Assessment (Adult) History of falling in the last 3 months, rg5 including since admission No falls in past 3 months (0 pts) Confusion or Disorientation No (0 pts) Intoxicated or Sedated No (0 pts) Impaired Gait No (0 pts) Mobility Assist Device Used No (0 pt) Altered Elimination No (0 pt) Score/Fall Risk Level 0 - 2 = Low Risk Oriented to surroundings, Maintained a safe environment, Hourly rounding (assess needs \T\ fall precautionary measures) done. Abuse screen: Denies threats or abuse. 00:00 Nutritional screening: No deficits noted. Tuberculosis screening: No symptoms or risk rg5 factors identified. Assessment: 00:18 Reassessment: SEE TRIAGE ASSESSMENT. rg5 01:15 Reassessment: No changes from previously documented assessment. Patient and/or family rg5 updated on plan of care and expected duration. Pain level reassessed. Patient is alert, oriented x 3, equal unlabored respirations, skin warm/dry/pink. 02:13 Reassessment: Patient and/or family updated on plan of care and expected duration. Pain rg5 level reassessed. Patient is alert, oriented x 3, equal unlabored respirations, skin warm/dry/pink. Patient states symptoms have improved. 03:04 Reassessment: Patient and/or family updated on plan of care and expected duration. Pain rg5 level reassessed. Patient is alert, oriented x 3, equal unlabored respirations, skin warm/dry/pink. Patient states feeling better. 05:12 Reassessment: Patient and/or family updated on plan of care and expected duration. Pain rg5 level reassessed. Patient is alert, oriented x 3, equal unlabored respirations, skin warm/dry/pink. Patient states symptoms have improved. 05:13 Reassessment: Patient and/or family updated on plan of care and expected duration. Pain rg5 level reassessed. Patient is alert, oriented x 3, equal unlabored respirations, skin warm/dry/pink. General: Appears in no apparent distress. Cardiovascular: Patient's skin is warm and dry. Respiratory: Airway is patent Trachea midline Respiratory effort is even, unlabored, Respiratory pattern is regular, symmetrical. Vital Signs: 00:00 BP 143 / 84; Pulse 81; Resp 23; Temp 97.6(O); Pulse Ox 93% on 3 lpm NC; Weight 67.59 rg5 kg; Height 5 ft. 3 in. ; 00:13 BP 143 / 84; Pulse 81; Resp 23; Temp 97.6; Pulse Ox 93% on 3 lpm NC; rg5 01:25 BP 121 / 79; Pulse 83; Resp 19; Pulse Ox 97% on 3 lpm NC; rg5 02:11 BP 118 / 76; Pulse 86; Resp 18; Pulse Ox 100% on 3 lpm NC; rg5 03:02 BP 120 / 80; Pulse 88; Resp 19; Pulse Ox 99% on 3 lpm NC; Pain 0/10; rg5 04:00 BP 133 / 79; Pulse 75; Resp 19; Temp 98(O); Pulse Ox 99% on 3 lpm NC; rg5 05:12 BP 102 / 74; Pulse 77; Resp 18; Pulse Ox 98% on 3 lpm NC; rg5 00:00 Body Mass Index 26.39 (67.59 kg, 160.02 cm) rg5 03:02 Pain Scale: Adult rg5 [place] Coma Score: 03:39 Eye Response: spontaneous(4). Motor Response: obeys commands(6). Verbal Response: sp4 oriented(5). Total: 15. ED Course: 12/11 23:51 Patient arrived in ED. rv1 12/12 00:00 No provider procedures requiring assistance completed. rg5 00:00 Inserted saline lock: 20 gauge in right wrist, using aseptic technique. Blood rg5 collected. Flushed with 10 mL NS. 00:00 Patient has correct armband on for positive identification. Bed in low position. Call rg5 light in reach. Side rails up X 1. Adult w/ patient. 00:01 Darian Hoffman, CLEVE is Primary Nurse. rg5 00:12 EKG done, by neon technician. af3 00:13 Triage completed. rg5 00:13 Chin Terrazas MD is Attending Physician. sp4 00:13 Arm band placed on right wrist. EKG completed in triage. Results shown to MD. rg5 00:41 XRAY Chest (1 view) In Process Unspecified. EDMS 03:38 Hector Vázquez MD is Hospitalizing Provider. sp4 05:02 Patient admitted, IV remains in place. intact, bleeding controlled, No redness/swelling rg5 at site. 05:02 Provided Education on: NEED FOR ADMIT. rg5 Administered Medications: 00:45 Drug: Ondansetron IVP 8 mg IVP once; over 2 minutes Route: IVP; Site: left antecubital; rg5 02:43 Follow up: Response: No adverse reaction rg5 00:45 Drug: MethylPrednisoLONE IVP 125 mg IVP once Route: IVP; Site: right forearm; rg5 02:44 Follow up: Response: No adverse reaction rg5 00:45 Drug: Albuterol Inhalation 2.5 mg Inhalation once Route: Inhalation; rg5 00:50 Drug: Ipratropium Inhalation Aerosol 0.5 mg Inhalation once Route: Inhalation; rg5 00:55 Drug: morphine IVP or IV 2 mg IVP once over 4 mins Route: IVP; Infused Over: 4 mins; rg5 Site: right hand; 02:44 Follow up: Response: No adverse reaction; Pain is decreased rg5 01:00 Drug: NS 0.9% IV 1000 ml IV at 75 ml/hr continuous Route: IV; Rate: 75 ml/hr; Site: rg5 right hand; 03:45 Follow up: IV Status: Infusion continued upon admission; IV Intake: 500ml rg5 01:00 Drug: Ativan IVP 1 mg IVP once Route: IVP; Site: left antecubital; rg5 02:43 Follow up: Response: No adverse reaction rg5 01:00 Drug: Rocephin - Rocephin (cefTRIAXone) IVPB 1 grams IVPB once over 30 mins; (mix in 50 rg5 mL NS) Route: IVPB; Infused Over: 30 mins; Site: right hand; 03:41 Follow up: IV Status: Completed infusion; IV Intake: 50ml rg5 01:15 Drug: Thiamine IV 100 mg IV at bolus once Route: IV; Rate: bolus; Site: left rg5 antecubital; 03:42 Follow up: Response: No adverse reaction; IV Status: Completed infusion rg5 01:18 Drug: metoCLOPramide IVP 10 mg IVP once; over 1 to 2 minutes Route: IVP; Site: left rg5 antecubital; 02:44 Follow up: Response: No adverse reaction rg5 02:45 Drug: Albuterol Inhalation 2.5 mg Inhalation once Route: Inhalation; rg5 02:45 Drug: Ipratropium Inhalation Aerosol 0.5 mg Inhalation once Route: Inhalation; rg5 Medication: 00:00 VIS not applicable for this client. rg5 Intake: 03:41 IV: 50ml; Total: 50ml. rg5 03:45 IV: 500ml; Total: 550ml. rg5 Outcome: 03:39 Decision to Hospitalize by Provider. sp4 05:45 Admitted to Med/surg accompanied by nurse, rg5 05:45 Admitted to Med/surg via stretcher, with oxygen, 05:45 Condition: stable 05:45 Instructed on the need for admit, 05:45 Patient left the ED. rg5 Signatures: Dispatcher [employer] EDMS Lauren Boyd rv1 Chin Terrazas MD MD sp4 Darian Hoffman RN RN rg5 Alivia Gardner3 Corrections: (The following items were deleted from the chart) 02:38 00:00 Care prior to arrival: Medication(s) given: zofran 4 mg, IV initiated. 20 GA, in rg5 the left antecubital area, rg5 02:52 00:13 Respiratory: Reports shortness of breath cough that is productive, Airway is rg5 patent Trachea midline Respiratory effort is even, Respiratory pattern is regular, Onset: The symptoms/episode began/occurred just prior to arrival, the patient has mild shortness of breath rg5
--- NOTE | 2023-12-13 05:50 | RAD REPORT ---
CLINICAL HISTORY: CHEST PAIN. COMPARISON: Chest radiograph from December 29, 2021. TECHNIQUE: Single view AP chest radiograph(s). FINDINGS: Suspected summation artifact in the medial right lung base, unchanged from prior. No pulmonary infilt rate or edema identified. No pleural effusion. No pneumothorax. Nonenlarged cardiomediastinal silhouette. No significant osseous abnormality. IMPRESSION: No acute cardiopulmonary abnormality identified by radiograph. Electronically signed by: Autumn Krishna MD 12/13/2023 12:56 AM T Due to temporary technical issues with the PACS/Nanoleaf reporting system, reports are being desmond d by the in-house radiologist without review as a courtesy to ensure prompt reporting the interpreting radiologist is fully responsible for the content of the report. Transcribed Date/Time: 12/13/2023 5:50 AM
[2023-12-13] MEDS ORDERED: clonazePAM 1 MG TAB PO PRN (06:19)
[2023-12-13 06:21] VITALS: BMI 23.1
[2023-12-13] MEDS: IPRATROPIUM BROM 0.5MG/2.5ML NEB SCH (07:15)
[2023-12-13] MEDS: ARFORMOTEROL TARTRATE 15 MCG/2 ML VIAL.NEB NEB SCH (07:15)
[2023-12-13] MEDS: ALBUTEROL 2.5 MG/3 ML NEB SOL NEB SCH (07:15)
[2023-12-13] MEDS: FLUOXETINE 20 MG CAP PO SCH (07:28)
[2023-12-13] MEDS: METHYLPREDNISOLONE 40 MG INJ IV SCH (07:28)
[2023-12-13] MEDS: ENOXAPARIN 40 MG/0.4 ML SQ SCH (07:28)
[2023-12-13] MEDS: levoFLOXacin 500 MG TAB PO SCH (07:28)
[2023-12-13] MEDS: ROFLUMILAST 500 MCG TABLET PO SCH (07:28)
[2023-12-13] MEDS ORDERED: HOME MED 1 EA UNK (Fluoxetine Hcl [Prozac] 40 MG Capsule) PO SCH (09:00)
[2023-12-13 10:09] LABS: Absolute Lymphocytes (CBC) 0.4 K/uL (0.7-4.9); Absolute Neutrophil 5.4 K/uL (1.8-8.0); Basophils % 0.1 % (0-1.3); Eosinophils % 0.1 % (0-4.4); Hematocrit 44.5 % (36.0-45.0); Hemoglobin 14.9 g/dL (12.0-15.0); Lymphocytes % 7.3 % (15.3-44.8); MCH 32.2 pg (27.0-35.0); MCHC 33.5 g/dL (32.0-36.0); MCV 96.4 fL (80-100); MPV 7.7 fL (7.6-11.3); Monocytes % 0.7 % (3.3-12.3); Neutrophils % 91.8 % (41.7-73.7); Nucleated Red Blood Cells % 0.1 % (0-0); Platelets 199 thou/uL (152-406); RBC Red Blood Cell Count 4.62 M/uL (3.86-4.86); Red Cell Distribution Width 12.3 % (12.1-15.2)
[2023-12-13 10:25] LABS: Albumin 3.4 g/dL (3.4-5.0); Albumin/Globulin Ratio 1.1 (1.1-1.8); Anion Gap 13.1 mEq/L (5.0-15.0); Bilirubin Total 0.3 mg/dL (0.2-1.0); Globulin 3.1 g/dL (2.3-3.5); Potassium 4.1 mEq/L (3.5-5.1); Protein, Total 6.5 g/dL (6.4-8.2)
[2023-12-13] MEDS: ACETAMINOPHEN 500 MG TAB PO PRN (10:58)
[2023-12-13 10:59] LABS: Blood Morphology Comment NOT SEEN (NOT SEEN); Platelet Estimate ADEQ; Platelets Clumped FEW; White Blood Cell Scan OK (OK)
--- NOTE | 2023-12-13 14:57 | P.PN ---
Date of Service: 12/13/23 Patient seen on rounds this morning Continues with productive cough and wheezing Reports maybe some slight improvement, but nothing too significant No fever, no chills No new/worsening symptoms Continues on steroids, nebulizer, antibiotics Lactate uptrending, will continue to trend until peak Do not suspect sepsis/infectious etiology elevated lactate may be mulifactorial - partly from COPD, and from acute ETOH ingestion
[2023-12-13] MEDS: clonazePAM 1 MG TAB PO PRN (16:30)
[2023-12-14 04:43] LABS: Absolute Lymphocytes (CBC) 0.9 K/uL (0.7-4.9); Absolute Monocytes 0.6 K/uL (0.1-1.3); Absolute Neutrophil 14.6 K/uL (1.8-8.0); Basophils % 0.1 % (0-1.3); Eosinophils % 0.1 % (0-4.4); Hematocrit 45.7 % (36.0-45.0); Hemoglobin 15.3 g/dL (12.0-15.0); Lymphocytes % 5.3 % (15.3-44.8); MCH 32.5 pg (27.0-35.0); MCHC 33.5 g/dL (32.0-36.0); MPV 7.9 fL (7.6-11.3); Monocytes % 3.6 % (3.3-12.3); Neutrophils % 90.9 % (41.7-73.7); Platelets 213 thou/uL (152-406); RBC Red Blood Cell Count 4.72 M/uL (3.86-4.86); Red Cell Distribution Width 12.3 % (12.1-15.2)
[2023-12-14 05:03] LABS: Anion Gap 7.8 mEq/L (5.0-15.0); Magnesium 2.3 mg/dL (1.6-2.4); Potassium 3.8 mEq/L (3.5-5.1)
[2023-12-14] MEDS: GUAIFENESIN/CODEINE 5ML UCUP PO PRN (09:45)
--- NOTE | 2023-12-14 09:55 | P.PN ---
Date of Service: 12/14/23 Subjective: cough feels worse today +headache from cough feels breathing is a little easier today uses oxygen at home ROS: 10 point ROS as noted above, otherwise negative Physical Exam: GEN: Alert, oriented, appears fatigued CV: Regular rate and rhythm, no edema Pulm: mild labored respirations at rest, +cough, b/l wheeze ABD: soft, nontender, nondistended Neuro: Normal speech, normal affect Problem List: acute on chronic COPD exacerbation (on home O2) leukocytosis, reactive / steroid-induced lactic acidosis, resolved Depression/anxiety continue steroids, nebs switch IV to PO steroids continues with cough / coughing fits and headache add mucinex add robitussin AC leukocytosis secondary to steroid use afebrile pulm consult confirm home meds Code: Full Dispo: Home, ~1-2 days Time Spent Managing Pts Care (In Minutes): 43
[2023-12-14] MEDS: GUAIFENESIN 600 MG SA TAB PO SCH (10:40)
[2023-12-14] MEDS: HYDROCODONE/APAP 5/325 MG TAB PO PRN (20:20)
[2023-12-14] MEDS: predniSONE 20 MG TAB PO SCH (20:24)
[2023-12-15 07:15] LABS: Absolute Lymphocytes (CBC) 1.2 K/uL (0.7-4.9); Absolute Monocytes 0.8 K/uL (0.1-1.3); Absolute Neutrophil 10.6 K/uL (1.8-8.0); Basophils % 0.1 % (0-1.3); Hematocrit 44.2 % (36.0-45.0); Hemoglobin 14.8 g/dL (12.0-15.0); Lymphocytes % 9.1 % (15.3-44.8); MCH 32.3 pg (27.0-35.0); MCHC 33.5 g/dL (32.0-36.0); MCV 96.6 fL (80-100); MPV 8.2 fL (7.6-11.3); Monocytes % 6.6 % (3.3-12.3); Neutrophils % 84.2 % (41.7-73.7); Nucleated Red Blood Cells % 0.1 % (0-0); Platelets 195 thou/uL (152-406); RBC Red Blood Cell Count 4.58 M/uL (3.86-4.86); Red Cell Distribution Width 12.4 % (12.1-15.2)
[2023-12-15 07:30] LABS: Magnesium 2.6 mg/dL (1.6-2.4)
--- NOTE | 2023-12-15 08:26 | RAD REPORT ---
EXAMINATION: ONE VIEW CHEST XR CLINICAL INDICATION: Female, 63 years old.,SOB, f/u opacities TECHNIQUE: Frontal chest projection is submitted. Examination is limited by patient positioning and t echnique. COMPARISON: 12/13/2023 FINDINGS: The lungs are mildly hyper inflated and clear. Mild hyperlucency suggesting COPD. No pneumothorax or sizable effusion. The heart is normal in size. IMPRESSION: No acute intrathoracic abnormalities. Findings suggesting COPD, stable.
--- NOTE | 2023-12-15 10:23 | EKG ---
Test Date: 2023-12-13 Test Time: 00:05:24 Underwater Hunter: KATHERYN MEASUREMENT RESULTS: Intervals: Rate: 74 MA: 144 QRSD: 76 QT: 408 QTc: 452 [place]: P: 84 MA: 144 QRS: 85 T: 82 INTERPRETIVE STATEMENTS: Normal sinus rhythm Normal ECG Compared to ECG 08/10/2023 22:04:50 No significant changes Electronically Signed On 12-15-23 10:20:15 CDT by Enrique White
--- NOTE | 2023-12-15 11:44 | P.PN ---
Subjective Date of Service: 12/15/23 Chief Complaint: COPD exacerbation No change in patient's condition she still continues to have significant amount of coughing spells shortness of breath Review of Systems General: Weakness Respiratory: Cough, Shortness of Breath Physical Examination - Vital Signs Temperature: 98.1 F Blood Pressure: 112/58 Pulse: 77 Respirations: 24 Pulse Ox (%): 94 - Physical Exam General: Alert, Moderate distress Respiratory: Expiratory wheezes Cardiovascular: No edema, Normal S1 S2 Assessment And Plan - Current Problems (Diagnosis) (1) COPD with acute exacerbation Current Visit: No Status: Acute Plan: Patient is 63 years of age admitted with acute exacerbation of COPD she still continues to have persistent coughing spells chest x-ray is clear continue with present treatment sputum cultures patient's white count is declining patient is on levofloxacin promethazine with codeine as needed
[2023-12-15] MEDS: PROMETHAZINE-DM 5 ML OSYR PO PRN (12:58)
--- NOTE | 2023-12-15 13:29 | P.PN ---
Date of Service: 12/15/23 Subjective: no acute events overnight continues with cough headache worse tired cough medicine not helping ROS: 10 point ROS as noted above, otherwise negative Physical Exam: GEN: Alert, oriented, fatigued, uncomfortable appearing CV: Regular rate and rhythm, no edema Pulm: mild labored respirations at rest, +cough, b/l wheeze ABD: soft, nontender, nondistended Neuro: Normal speech, normal affect Problem List: acute on chronic COPD exacerbation (on home O2) leukocytosis, reactive / steroid-induced lactic acidosis, resolved Depression/anxiety on admission, presents with worsening cough, congestion, dyspnea CXR (12/12): negative for any acute findings repeat CXR (12/14): COPD, stable. continue steroids, nebs IV steroids deescalated to PO prednisone 12/13 leukocytosis secondary to steroid use continue empiric levaquin to cover possible infection continues with cough / coughing fits and headache continue mucinex, robitussin AC, phenergan Dr. Vázquez, pulm consulted confirm home meds, restart as appropriate Code: Full Dispo: Home, ~ 2 days Time Spent Managing Pts Care (In Minutes): 43
[2023-12-15] MEDS: IPRATROPIUM BROM 0.5MG/2.5ML NEB SCH (14:16)
[2023-12-16 05:21] LABS: Hematocrit 44.1 % (36.0-45.0); Hemoglobin 14.5 g/dL (12.0-15.0); MCH 32.2 pg (27.0-35.0); MCHC 32.9 g/dL (32.0-36.0); MPV 8.4 fL (7.6-11.3); Platelets 166 thou/uL (152-406); Red Cell Distribution Width 12.4 % (12.1-15.2)
[2023-12-16 05:35] LABS: Anion Gap 3.1 mEq/L (5.0-15.0); Magnesium 2.6 mg/dL (1.6-2.4); Potassium 4.1 mEq/L (3.5-5.1)
--- NOTE | 2023-12-16 15:14 | P.PN ---
Subjective Date of Service: 12/16/23 Chief Complaint: COPD exacerbation Patient seen to be coughing, Cough is productive of whitish to brownish sputum. Patient stated her headache is better. She has been afebrile Physical Examination - Vital Signs Temperature: 97.6 F Blood Pressure: 110/61 Pulse: 68 Respirations: 18 Pulse Ox (%): 98 Assessment And Plan - Plan Physical Exam: GEN: Alert, oriented x 3, mild distress due to cough. CV: Regular rate and rhythm, no edema Pulm: No respiratory distress, diminished breath sounds bilaterally, mild scattered wheezes ABD: soft, nontender, nondistended Neuro: Normal speech, normal affect Extremities: No edema. Problem List: acute on chronic COPD exacerbation (on home O2) leukocytosis, reactive / steroid-induced lactic acidosis, resolved Depression/anxiety Plan CXR (12/12): negative for any acute findings Patient initially on IV steroids which was deescalated to PO prednisone 12/13 Leukocytosis likely secondary to steroid use continue empiric levaquin. Antitussives as needed. Analgesics as needed Pulmonary Dr. Vázquez is following. Continue home medications. Code: Full Dispo: Home, ~ 2 days
[2023-12-16] MEDS ORDERED: HYDROCODONE/CHLORPHEN 5 ML/OSYR PO PRN (15:19)
[2023-12-16 20:54] VITALS: O2SAT 95
[2023-12-17 04:48] LABS: Absolute Lymphocytes (CBC) 1.2 K/uL (0.7-4.9); Absolute Monocytes 0.5 K/uL (0.1-1.3); Absolute Neutrophil 6.9 K/uL (1.8-8.0); Eosinophils % 0.3 % (0-4.4); Hematocrit 42.9 % (36.0-45.0); Hemoglobin 14.4 g/dL (12.0-15.0); Lymphocytes % 13.6 % (15.3-44.8); MCH 32.6 pg (27.0-35.0); MCHC 33.6 g/dL (32.0-36.0); MPV 8.1 fL (7.6-11.3); Monocytes % 6.3 % (3.3-12.3); Neutrophils % 79.8 % (41.7-73.7); Platelets 180 thou/uL (152-406); RBC Red Blood Cell Count 4.43 M/uL (3.86-4.86); Red Cell Distribution Width 12.5 % (12.1-15.2)
[2023-12-17 05:10] LABS: Anion Gap 5.8 mEq/L (5.0-15.0); Potassium 3.8 mEq/L (3.5-5.1)
[2023-12-17] MEDS: MORPHINE 2 MG/ML SYR IV PRN (09:11)
--- NOTE | 2023-12-17 11:01 | P.DS ---
Admission Date: 12/13/23 Discharge Date: 12/17/23 Disposition: ROUTINE DISCHARGE Discharge Condition: FAIR Reason for Admission: COPD exacerbation Brief History of Present Illness: Patient is 63 years woman with a history fo COPD and chronic respiratory failure who presented to the emergency department due to progressive shortness of breath cough of 2 weeks duration. Patient was evaluated in the ED with a chest x-ray which did not show any acute disease. Abnormal blood work to include significantly elevated alcohol level. Patient was diagnosed with COPD exacerbation admitted for further management. Hospital Course: Diagnosis: acute on chronic COPD exacerbation Chronic respiratory failure with hypoxia leukocytosis, reactive / steroid-induced lactic acidosis, resolved Depression/anxiety Alcohol ingestion Patient presented with worsening cough, congestion, dyspnea secondary to acute on chronic COPD exacerbation. Chest xray was negative for any acute findings. She was given steroids in addition to nebs, antitussives, oxygen supplementation and had improvement of her symptoms. Dr. Vázquez, storeroom attendant was consulted and felt this acute episode to be most consistent with acute COPD exacerbation. She received empiric levaquin as a precaution to cover bacterial infective bronchitis. Lactate was elevated on admission and peaked at 4.0. Elevated lactate level likely secondary to COPD and acute ETOH ingestion. There was no evidence of infection / sepsis. She had leukocytosis suspected to secondary to steroid use. Patient experienced coughing spells but was stable on her home oxygen and had no shortness of breath. Her lungs are clear to auscultation. Patient is deemed stable for discharge. She is discharged with oral Zithromax to continue treatment for infective bronchitis. She is also discharged with a tapering dose of prednisone. Patient will continue her maintenance dose prednisone after the prednisone taper. Vital Signs/Physical Exam: Temp Pulse Resp BP Pulse Ox 97.2 F 79 20 108/74 94 12/17/23 08:00 12/17/23 08:00 12/17/23 09:11 12/17/23 08:00 12/17/23 08:00 General: Alert, In no apparent distress, Oriented x3 HEENT: Mucous membr. moist/pink Neck: Supple, JVD not distended Respiratory: Clear to auscultation bilaterally, Normal air movement Cardiovascular: No edema, Regular rate/rhythm, Normal S1 S2 Gastrointestinal: Normal bowel sounds, Soft and benign Laboratory Data at Discharge: WBC 8.70 thou/uL (4.3-10.9) 12/17/23 04:02 Hgb 14.4 g/dL (12.0-15.0) 12/17/23 04:02 Hct 42.9 % (36.0-45.0) 12/17/23 04:02 Plt Count 180 thou/uL (152-406) 12/17/23 04:02 PT 11.2 SECONDS (9.4-12.5) 12/13/23 00:45 INR 1.00 12/13/23 00:45 Sodium 139 mEq/L (136-145) 12/17/23 04:02 Potassium 3.8 mEq/L (3.5-5.1) 12/17/23 04:02 BUN 12 mg/dL (7-18) 12/17/23 04:02 Creatinine 0.63 mg/dL (0.55-1.02) 12/17/23 04:02 Glucose 126 mg/dL (74-106) H 12/17/23 04:02 Magnesium 2.6 mg/dL (1.6-2.4) H 12/16/23 05:02 Total Bilirubin 0.3 mg/dL (0.2-1.0) 12/13/23 09:58 AST 21 U/L (15-37) 12/13/23 09:58 ALT 29 U/L (13-56) 12/13/23 09:58 Alkaline Phosphatase 89 U/L (45-117) 12/13/23 09:58 Triglycerides 104 mg/dL (<150) 12/14/23 04:14 Cholesterol 238 mg/dL (<200) H 12/14/23 04:14 HDL Cholesterol 75 mg/dL (40-60) H 12/14/23 04:14 Cholesterol/HDL Ratio 3.17 12/14/23 04:14 Home Medications: Fluoxetine HCl [Prozac] 40 mg PO DAILY 07/19/22 clonazePAM [Clonazepam] 1 mg PO TID PRN 07/19/22 Fluticasone Propion/Salmeterol [Fluticasone-Salmeterol 113-14] 1 puff IH BID 08/10/23 Ipratropium/Albuterol Sulfate [Combivent Respimat 20-100 Mcg] 4 gm IH QID 08/10/23 predniSONE [Prednisone] 10 mg PO DAILY 08/10/23 Hydrocodone/Chlorphen Polis [Tussionex Oral Susp*] 5 ml PO BID PRN #100 ml 08/13/23 Roflumilast [Daliresp*] 250 mcg PO DAILY #15 tab 08/13/23 Albuterol Neb [Proventil 0.083% Neb Soln] 2.5 mg NEB BID 12/13/23 Albuterol Sulfate [Proair Digihaler] 2 puff IH Q6HP PRN 12/13/23 Ipratropium Neb [Atrovent*] 0.5 mg NEB BID 12/13/23 Azithromycin [Zithromax] 500 mg PO DAILY #10 tab 12/17/23 Guaifenesin [Mucinex] 600 mg PO BID #30 tab 12/17/23 Promethazine/Dextrometh Syr [Phenergan Dm Oral Syrup*] 5 ml PO Q6H PRN #118 ml 12/17/23 predniSONE [Deltasone*] 10 mg PO DAILY #45 tab 12/17/23 New Medications: predniSONE [Deltasone*] 10 mg PO DAILY #45 tab Guaifenesin [Mucinex] 600 mg PO BID #30 tab Promethazine/Dextrometh Syr [Phenergan Dm Oral Syrup*] 5 ml PO Q6H PRN #118 ml PRN Reason: Cough Azithromycin [Zithromax] 500 mg PO DAILY #10 tab Physician Discharge Instructions: Physician discharge instructions: Patient presented with worsening cough, congestion, dyspnea secondary to acute on chronic COPD exacerbation. Chest xray was negative for any acute findings. She was given steroids in addition to nebs, antitussives, oxygen supplementation and had improvement of her symptoms. Dr. Vázquez, storeroom attendant was consulted and felt this acute episode to be most consistent with acute COPD exacerbation. She received empiric levaquin as a precaution to cover possible pneumonia. Lactate was elevated on admission and peaked at 4.0. Suspect multifactorial etiology secondary to COPD / acute ETOH ingestion. No evidence of infection / sepsis. Suspect leukocytosis secondary to steroid use. Patient was feeling better, breathing more comfortably on her home oxygen settings, afebrile > 24 hours, and deemed stable for discharge. Follow up: PCP 3-5 days Pulm 2-4 weeks Please call to schedule / confirm appointments Diet: AHA Activity: Ad venancio Followup: Hector Vázquez MD [ACTIVE - CAN ADMIT] - 1 Week SF TIFFANY PEREZ [Primary Care Provider] - 1 Week Time spent managing pt's care (in minutes): 42
[2023-12-17 13:49] VITALS: BP 115/68; TEMP 97.8
--- NOTE | 2023-12-17 17:18 | P.PN ---
Subjective Date of Service: 12/17/23 Chief Complaint: COPD exacerbation Is improving cough has improved patient wants to go home Review of Systems General: Weakness Respiratory: Cough, Shortness of Breath Physical Examination - Vital Signs Temperature: 97.8 F Blood Pressure: 115/68 Pulse: 73 Respirations: 18 Pulse Ox (%): 97 - Physical Exam General: Alert, Oriented x3 Respiratory: Expiratory wheezes Cardiovascular: No edema, Regular rate/rhythm, Normal S1 S2 Assessment And Plan - Current Problems (Diagnosis) (1) COPD with acute exacerbation Status: Acute Plan: Admitted with COPD exacerbation I agree with discharge on Augmentin and azithromycin labs chemistries all reviewed cultures are all negative resume all her home medications follow-up with me in 2 weeks signs are stable
== END 2023-12-17 13:21 | disposition home or self-care (01) | DRG 191 ==
LOC: ER 23:50 → ERHOLD 12-13 03:02 → 2ND 12-13 05:41
PROVIDERS: ADMIT Internal Medicine Sleep Medicine; ATTEND Internal Medicine
PROC: 5A09457 Assistance with Respiratory Ventilation, 24-96 Consecutive Hours, Continuous Positive Airway Pressure (ICD-10-PCS; principal; 2023-12-15)
DX: J44.1 Chronic obstructive pulmonary disease with (acute) exacerbation (principal); E87.20 Acidosis, unspecified; J96.10 Chronic respiratory failure, unspecified whether with hypoxia or hypercapnia; F32.A Depression, unspecified; F41.9 Anxiety disorder, unspecified; T38.0X5A Adverse effect of glucocorticoids and synthetic analogues, initial encounter; Z88.0 Allergy status to penicillin; Z88.5 Allergy status to narcotic agent; Z88.2 Allergy status to sulfonamides; Z99.81 Dependence on supplemental oxygen; Z11.52 Encounter for screening for COVID-19; Z79.52 Long term (current) use of systemic steroids; Z79.899 Other long term (current) drug therapy; Z90.710 Acquired absence of both cervix and uterus; Y90.7 Blood alcohol level of 200-239 mg/100 ml
CPT/HCPCS: 36415; 71045; 80048; 80053; 80061; 80076; 82077; 83605; 83735; 83880; 84484; 85025; 85027; 85610; 87040; 87804; 87811; 93005; 94660; 99285; J0696; J1650; J2270; J2405; J2765; J2919; J3411; J7030; J7512; J7605; J7613; J7644